=== PATIENT | male | born 1940 | race Caucasian/White ===

== ENCOUNTER 2021-05-12 14:34 | Inpatient (IN) | payer MEDICARE, SELFPAY ==
[2021-05-12] VITALS (14 sets, daily range): BP systolic 114–156; BP diastolic 58–89; PULSE 50–84; RESP 20–22; TEMP 36.9–37.6; O2SAT 85–98; BMI 31.3; BMI 29.8
--- NOTE | 2021-05-12 14:54 | XR_ITS ---
FINAL REPORT CLINICAL HISTORY: cough, covid exposure, generalized weakness. FINDINGS: SINGLE VIEW CHEST. The heart is normal in size. The mediastinum is unremarkable. There is mild scarring. There are bilateral pulmonary opacities consistent with bilateral pneumonia. There is no pneumothorax. IMPRESSION: Findings consistent with bilateral pneumonia. Reviewed, Interpreted and Dictated by Kalin Tovar III, MD Transcribed by Sanjana Cedeno Authenticated by Kalin Tovar III, MD on 05/12/2021 04:00:34 PM [facility]
[2021-05-12 15:00] LABS: Influenza A, PCR Not Detected (NotDetected); Influenza B, PCR Not Detected (NotDetected)
--- NOTE | 2021-05-12 15:10 | PC.NURSE ---
rad at bedside
[2021-05-12 15:13] LABS: Basophils % 0.5 % (0.1-2.0); Eosinophils % 0.1 % (0.1-12.0); Hematocrit 44.3 % (42.0-52.0); Hemoglobin 14.5 g/dL (14.1-18.0); Lymphocytes # 0.7 K/mm3 (0.7-4.5); Lymphocytes % 11.3 % (10-50); Mean Corpuscular HGB Conc 32.7 g/dL (31.8-35.4); Mean Corpuscular Hemoglobin 31.7 pg (27.0-31.2); Mean Corpuscular Volume 96.8 fl (80-94); Mean Platelet Volume 9.4 fl (7.4-10.4); Monocytes # 0.3 K/mm3 (0.1-1.0); Monocytes % 5.7 % (1.7-9.3); Neutrophils # 4.7 K/mm3 (1.8-7.8); Neutrophils % 82.3 % (37.0-80.0); Platelet Count 128 K/mm3 (142-424); Red Blood Count 4.58 M/mm3 (4.60-6.20); Red Cell Distribution Width 14.3 % (11.5-17.5); White Blood Count 5.7 K/mm3 (4.8-10.8)
--- NOTE | 2021-05-12 15:15 | PC.NURSE ---
lab at bedside
--- NOTE | 2021-05-12 15:17 | PC.NURSE ---
RT at bedside
[2021-05-12 15:21] LABS: Lactic Acid 1.8 mmol/L (0.7-2.1)
[2021-05-12 15:23] LABS: Coronavirus 19, PCR Detected (NotDetected)
--- NOTE | 2021-05-12 15:26 | ECG_ITS ---
APPROVED REPORT Exam: Resting ECG HR:77 bpm ECG Measurements Heart Rate 77 AXES AR 160 P 23 QRSd 76 QRS 5 QT 382 T 2 QTc 432 Conclusion Sinus rhythm with premature supraventricular complexes Possible Inferior infarct, age undetermined Abnormal ECG Electronically signed by : Mathieu Carmichael MD 05/15/2021 13:49:15
[2021-05-12 15:32] LABS: ABG Base Excess -5.4 mmol/L (-2.4-2.3); ABG HCO3 18.9 mmhg (22.0-26.0); ABG PCO2 29.2 mmhg (35.0-45.0); ABG PH 7.43 mmol/L (7.35-7.45); ABG PO2 76.4 mmhg (80-100); ABG TCO2 19.8 mmhg (23-27)
[2021-05-12 15:34] LABS: Allen's Test Acceptable; Source Left Radial
--- NOTE | 2021-05-12 15:35 | PC.NURSE ---
pt placed on 13L vapotherm per RT
[2021-05-12 15:43] LABS: Chloride 91 mmol/L (98-107); Potassium 4.6 mmoL/L (3.5-5.1); Sodium 126 mmol/L (136-145)
[2021-05-12 15:45] LABS: Activated Partial Thrombo Time 33.4 seconds (22.8-30.6); INR 1.01 (0.9-1.1); Prothrombin Time 11.4 seconds (10.1-12.5)
[2021-05-12 15:46] LABS: Alanine Aminotransferase 40 U/L (12-78); Albumin Level 3.3 g/dl (3.5-5.0); Albumin/Globulin Ratio 1.2 (1.1-1.8); Alkaline Phosphatase 82 U/L (38-126); Anion Gap 13.6 mEq/L (5-15); Aspartate Amino Transferase 70 U/L (17-59); Bilirubin,Total 0.5 mg/dl (0.2-1.3); Blood Urea Nitrogen 39 mg/dl (9-20); Calcium 7.7 mg/dl (8.4-10.2); Carbon Dioxide 26 mmol/L (22.0-30.0); Creatinine Clearance Estimated 52 mL/min (50-200); Estimated Glomerular Filt Rate 42 ml/min (>60); GFR (African American) 51 ML/MIN (>60); Globulin 2.8 g/dL (1.3-3.2); Lipase 480 U/L (23-300); Total Protein,Serum 6.1 g/dl (6.3-8.2)
[2021-05-12 15:56] LABS: NT Pro Brain Natriuretic Pep. 449 pg/mL (0-450)
[2021-05-12 15:59] LABS: Troponin I 0.03 ng/ml (0.00-0.034)
--- NOTE | 2021-05-12 16:02 | HMH.EDGENADL ---
ED Disposition Clinical Impression: Hyperglycemia, Pneumonia due to COVID-19 virus Respiratory failure Qualifiers: Chronicity: acute Respiratory failure complication: hypoxia and hypercapnia Qualified Code(s): J96.01 - Acute respiratory failure with hypoxia; J96.02 - Acute respiratory failure with hypercapnia Pancreatitis Qualifiers: Chronicity: acute Pancreatitis type: unspecified pancreatitis type Acute pancreatitis complication: unspecified Qualified Code(s): K85.90 - Acute pancreatitis without necrosis or infection, unspecified Disposition: Admitted As Inpatient Condition on Discharge: Fair Referrals: Tom Akhtar PA [Primary Care Provider] - - Critical Care Critical Care Time: No Attestation: On 05/12/21, the high probability of a clinically significant, sudden or life threatening deterioration of the following system(s) required my full and direct attention, intervention and personal management. The time I documented below is in addition to time spent performing reported procedures but includes the following listed in this critical care notation. Medical Decision Making - Medical Records Medical records reviewed: Yes: I reviewed the patient's medical records. - Maxim Inquiry Pt receiving controlled substance: No Vital Signs: 05/12/21 15:00 05/12/21 15:10 05/12/21 15:18 Temperature 99 F Temperature Source Oral Pulse Rate 84 Pulse Rate [Left Radial] 79 Respiratory Rate 22 Blood Pressure 128/73 Blood Pressure [Right Arm] 153/89 H Blood Pressure Mean [Right Arm] 110 Blood Pressure Source [Right Arm] Automatic Cuff Blood Pressure Position [Right Arm] Sitting 02 Sat by Pulse Oximetry 91 L 85 L 92 L Oxygen Delivery Method Nasal Cannula Room Air Nasal Cannula Oxygen Flow Rate (LPM) 6 4 05/12/21 15:35 05/12/21 15:45 Temperature Temperature Source Pulse Rate 83 Pulse Rate [Left Radial] Respiratory Rate Blood Pressure 156/84 H Blood Pressure [Right Arm] Blood Pressure Mean [Right Arm] Blood Pressure Source [Right Arm] Blood Pressure Position [Right Arm] 02 Sat by Pulse Oximetry 93 L 97 Oxygen Delivery Method Vapotherm Vapotherm Oxygen Flow Rate (LPM) 30 - Lab Data Lab Results 05/12/21 14:54: Specimen Source Left radial, O2 % 5lpm, ABG pH 7.43, ABG pCO2 29.2 L, ABG pO2 76.4 L, ABG HCO3 18.9 L, ABG Total CO2 19.8 L, ABG Base Excess -5.4 L, [place]yon Test Acceptable 05/12/21 14:54: SARS-CoV-2 (PCR) Detected A, Influenza A Untype (PCR) Not detected, Influenza Type B (PCR) Not detected 05/12/21 15:00: WBC 5.7, RBC 4.58 L, Hgb 14.5, Hct 44.3, MCV 96.8 H, MCH 31.7 H, MCHC 32.7, RDW 14.3, Plt Count 128 L, MPV 9.4, Neut % (Auto) 82.3 H, Lymph % (Auto) 11.3, [place] % (Auto) 5.7, Eos % (Auto) 0.1, Baso % (Auto) 0.5, Neut # (Auto) 4.7, Lymph # (Auto) 0.7, [place] # (Auto) 0.3, Eos # (Auto) 0.0, Baso # (Auto) 0.0 05/12/21 15:00: Lactate 1.8 05/12/21 15:20: PT 11.4, INR 1.01, APTT 33.4 H 05/12/21 15:20: Sodium 126 L, Potassium 4.6, Chloride 91 L, Carbon Dioxide 26, Anion Gap 13.6, BUN 39 H, Creatinine 1.60 H, Estimated Creat Clear 52, Estimated GFR 42 L, Est GFR ( Amer) 51 L, Glucose 619 H*, Calcium 7.7 L, Total Bilirubin 0.5, AST 70 H, ALT 40, Alkaline Phosphatase 82, Troponin I 0.03, NT-Pro-B Natriuret Pep 449, Total Protein 6.1 L, Albumin 3.3 L, Globulin 2.8, Albumin/Globulin Ratio 1.2, Lipase 480 H, TSH 1.01 Result diagrams: 05/12/21 15:00 05/12/21 15:20 Orders (Tests/Meds): ED MEDICATIONS Discontinued Medications Generic Name Dose Route Start Last Admin Trade Name Freq PRN Reason Stop Dose Admin Dexamethasone Sodium Phosphate 10 mg 05/12/21 15:43 05/12/21 15:59 Dexamethasone 4mg/Ml 5ml Mdv IV 05/12/21 15:44 10 mg ONCE ONE Administration Sodium Chloride 1,000 mls @ 999 mls/hr 05/12/21 15:00 05/12/21 15:10 Sod Chlor 0.9% 1000ml Bag IV 05/12/21 16:00 999 mls/hr .Q1H1M ZANDRA Administration ORDERS Category Date Time Status Temo
[2021-05-12 16:03] LABS: Glucose 619 mg/dl (74-100)
--- NOTE | 2021-05-12 16:04 | PC.NURSE ---
critical labs called to [facility].
[2021-05-12 16:17] LABS: Thyroid Stimulating Hormone 1.01 uIU/mL (0.465-4.68)
--- NOTE | 2021-05-12 16:33 | PC.NURSE ---
Notified house of admission
--- NOTE | 2021-05-12 17:11 | PC.NURSE ---
called report to kay hallman
--- NOTE | 2021-05-12 17:13 | PC.NURSE ---
Received report from Max in ED. Questioned pt receiving any med(s) for glucose of 619. Max asked ED MD and he stated he didn't and wanted glucose managed on floor(per max,RN)
[2021-05-12 17:33] LABS: Alanine Aminotransferase 40 U/L (12-78); Albumin Level 3.3 g/dl (3.5-5.0); Albumin/Globulin Ratio 1.3 (1.1-1.8); Alkaline Phosphatase 82 U/L (38-126); Anion Gap 12.5 mEq/L (5-15); Aspartate Amino Transferase 68 U/L (17-59); Bilirubin,Total 0.6 mg/dl (0.2-1.3); Blood Urea Nitrogen 38 mg/dl (9-20); Calcium 7.8 mg/dl (8.4-10.2); Carbon Dioxide 27 mmol/L (22.0-30.0); Chloride 90 mmol/L (98-107); Creatinine Clearance Estimated 52 mL/min (50-200); Estimated Glomerular Filt Rate 42 ml/min (>60); GFR (African American) 51 ML/MIN (>60); Globulin 2.6 g/dL (1.3-3.2); Potassium 4.5 mmoL/L (3.5-5.1); Sodium 125 mmol/L (136-145); Total Protein,Serum 5.9 g/dl (6.3-8.2)
[2021-05-12 17:44] LABS: Glucose 622 mg/dl (74-100)
--- NOTE | 2021-05-12 17:48 | PC.NURSE ---
Glucose 622 repeated and verified with lab, notified
[2021-05-12 17:53] LABS: Acetone, Serum (Rapid) Small (None Detect)
[2021-05-12 18:49] LABS: Glucose,Random 459 mg/dL (74-100)
--- NOTE | 2021-05-12 18:52 | PC.NURSE ---
Pt to floor at 1800. Checked glucose and read Hi. Stat blood glucose ordered and is 459. Have paged Dr. Lara for further orders at this time. Pt sitting up eating supper at this time. CB in reach.
--- NOTE | 2021-05-12 19:39 | PC.NURSE ---
Addendum entered by Diego Perez RN 05/12/21 20:15: (home meds). Dr. Lara also made aware of small amt of acetone pt has. Addendum entered by Diego Perez RN 05/12/21 20:11: Pt poor historian and unaware of med and dosages. Did make Dr. Lara aware of this. Original Note: Received order for 20 units humalog x [address] Lara
--- NOTE | 2021-05-12 20:00 | PC.NURSE ---
Report from pervious nurse received. Patient has orders for NS bolus and LR on Jul. Per report, patient is not to receive this and has NS at 100mls/hr infusing currently.
[2021-05-13] VITALS (13 sets, daily range): BP systolic 124–156; BP diastolic 63–79; PULSE 60–79; RESP 18–26; TEMP 36.3–36.9; O2SAT 90–96; BMI 29.7
--- NOTE | 2021-05-13 05:20 | PC.NURSE ---
Patient rested well during shift. Alert and oriented x4. No c/o pain. VSS. On vapotherm at 30L oxygen, tolerating well. Sinus rhythm on monitor. Also has continuous pulse oximetry in place. Lung sounds diminished through out. Respirations non-labored. Patient uses urinal to void but is also incontinent. SBA at bedside to void. NS at 100/hr infusing. Patient blood sugar at HS was high, provider updated and orders received. Able to make needs known.
[2021-05-13 07:04] LABS: Basophils % 0.2 % (0.1-2.0); Hemoglobin 13.1 g/dL (14.1-18.0); Lymphocytes # 0.6 K/mm3 (0.7-4.5); Lymphocytes % 16.2 % (10-50); Mean Corpuscular HGB Conc 33.5 g/dL (31.8-35.4); Mean Corpuscular Hemoglobin 32.4 pg (27.0-31.2); Mean Corpuscular Volume 96.7 fl (80-94); Mean Platelet Volume 9.6 fl (7.4-10.4); Monocytes # 0.2 K/mm3 (0.1-1.0); Monocytes % 4.9 % (1.7-9.3); Neutrophils % 78.6 % (37.0-80.0); Platelet Count 121 K/mm3 (142-424); Red Blood Count 4.04 M/mm3 (4.60-6.20); Red Cell Distribution Width 14.3 % (11.5-17.5); White Blood Count 3.8 K/mm3 (4.8-10.8)
--- NOTE | 2021-05-13 07:05 | HMH.HP ---
*Admission Date: 05/12/21 *Chief complaint: Cough *History of present illness: 80-year-old male presented to the emergency department with a cough and known COVID exposure via his . At the time of interview with patient he denies any significant malaise or symptomatology other than his cough. He may have had some chills but denies shortness of breath and fever. Patient was hypoxic in the emergency department requiring application of HFNC to correct his hypoxia. Additional work-up confirmed COVID-19 infection with bilateral infiltrates consistent with viral pneumonia from COVID. Patient was given a fluid bolus in the emergency department as he was felt to be mildly dehydrated. He was admitted for his acute respiratory failure and viral pneumonia due to COVID-19. Patient has diabetes for which she takes insulin. He has a history of aortic valve replacement with bioprosthetic valve. He has high blood pressure. Patient is a former smoker who quit in 2017 after nearly 50 years of cigarette use. Patient has not received a COVID-19 vaccine [facility] History I have reviewed the patient's past medical history: Yes Medical History: Reports:: Diabetes Mellitus Type 2, Hypertension *Have you ever received a pneumonia vaccine?: Yes *Have you received a flu vaccine this season?: No Other Surgeries: Yes: Other Valve Replacement (Aortic) - *Social History Last grade of school completed: High school graduate Smoking Status: Former smoker Tobacco Type: cigarettes Alcohol Intake: never *Occupational Status:: retired, other *Travel in the last 8 weeks: None Family Hx:: Non-contributory Review of Systems - Constitutional Reports chills, Denies body ache(s), Denies lack of energy, Denies malaise - Eyes Denies blurry vision, Denies change in vision - ENT Denies abnormal hearing, Denies difficulty swallowing - *Cardiovascular Denies chest pain, Denies chest pain at rest - *Respiratory Reports cough, Denies change in phlegm color, Denies chest congestion - *Gastrointestinal Reports loose stools, Denies abdominal pain, Denies belching - *Genitourinary Denies difficulty urinating, Denies difficulty with ejaculations - *Musculoskeletal Reports joint pain (Left hip) - Integumentary/Breasts Denies hair loss, Denies bleeding lesions - *Neurologic Reports confusion, Reports weakness Meds Home Medications Medication Instructions Recorded Confirmed Type Apixaban [Eliquis] 5 mg PO BID 05/12/21 05/12/21 History Cholecalciferol (Vitamin D3) 50,000 unit PO DIRECTED 05/12/21 05/12/21 History [Vitamin D3 50,000 unit Cap] Insulin Regular, Human [Novolin R 100 unit SQ NEEDED PRN 05/12/21 05/12/21 History Flexpen] Losartan/Hydrochlorothiazide 1 each PO DAILY 05/12/21 05/12/21 History [Losartan-Hctz 100-25 mg Tab] Simvastatin 20 mg PO DAILY 05/12/21 05/12/21 History carvediloL [Carvedilol 6.25mg Tab] 6.25 mg PO BID 05/12/21 05/12/21 History hydroCHLOROthiazide [HCTZ 25mg 25 mg PO DAILY 05/12/21 05/12/21 History tab] Allergies Allergy/AdvReac Type Severity Reaction Status Date / Time No Known Allergies Allergy Verified 05/12/21 15:18 Exam Vital signs and Labs for Last 24 Hours: Temp Pulse Resp BP Pulse Ox 97.7 F 65 20 131/71 94 L 05/13/21 03:28 05/13/21 06:00 05/13/21 03:28 05/13/21 03:28 05/13/21 06:00 Laboratory Results - last 24 hr 05/12/21 14:54: Specimen Source Left radial, O2 % 5lpm, ABG pH 7.43, ABG pCO2 29.2 L, ABG pO2 76.4 L, ABG HCO3 18.9 L, ABG Total CO2 19.8 L, ABG Base Excess -5.4 L, Kenyon Test Acceptable 05/12/21 14:54: SARS-CoV-2 (PCR) Detected A, Influenza A Untype (PCR) Not detected, Influenza Type B (PCR) Not detected 05/12/21 15:00: WBC 5.7, RBC 4.58 L, Hgb 14.5, Hct 44.3, MCV 96.8 H, MCH 31.7 H, MCHC 32.7, RDW 14.3, Plt Count 128 L, MPV 9.4, Neut % (Auto) 82.3 H, Lymph % (Auto) 11.3, [place] % (Auto) 5.7, Eos % (Auto) 0.1, Baso % (Auto) 0.5, Neut # (Auto) 4.7, Lymph # (Au
[2021-05-13 07:18] LABS: Alanine Aminotransferase 34 U/L (12-78); Albumin Level 2.9 g/dl (3.5-5.0); Albumin/Globulin Ratio 1.1 (1.1-1.8); Alkaline Phosphatase 70 U/L (38-126); Anion Gap 13.1 mEq/L (5-15); Aspartate Amino Transferase 54 U/L (17-59); Bilirubin,Total 0.3 mg/dl (0.2-1.3); Blood Urea Nitrogen 37 mg/dl (9-20); Calcium 7.6 mg/dl (8.4-10.2); Carbon Dioxide 25 mmol/L (22.0-30.0); Chloride 98 mmol/L (98-107); Creatinine Clearance Estimated 60 mL/min (50-200); Estimated Glomerular Filt Rate 53 ml/min (>60); GFR (African American) 65 ML/MIN (>60); Globulin 2.7 g/dL (1.3-3.2); Glucose 318 mg/dl (74-100); Potassium 4.1 mmoL/L (3.5-5.1); Sodium 132 mmol/L (136-145); Total Protein,Serum 5.6 g/dl (6.3-8.2)
[2021-05-13 07:20] LABS: C-Reactive Protein 54.7 mg/L (0-4)
--- NOTE | 2021-05-13 07:39 | HMH.PHAVTE ---
[facility] [place] Pharmacy VTE Monitoring - Patient Demographics Admission date: 05/13/21 Report Date: 05/13/21 Time: 07:39 Allergies/Adverse Reactions: Patient Allergies No Known Allergies Allergy (Verified 05/12/21 15:18) Height: 1.75 m Weight: 91.081 kg Patient Problems: Current Active Problems Hyperglycemia (Acute) Respiratory failure (Acute) Pneumonia due to COVID-19 virus (Acute) Pancreatitis (Acute) Acute respiratory failure with hypoxia (Acute) Long-term insulin use (Acute) Diabetes mellitus with hyperglycemia (Acute) Essential hypertension (Acute) Status post aortic valve replacement (Acute) Former cigarette smoker (Acute) Viral pneumonia (Acute) COVID-19 virus infection (Acute) - VTE Risk Labs: VTE Related Lab Results Hgb 13.1 g/dL (14.1-18.0) L 05/13/21 06:18 Hct 39.0 % (42.0-52.0) L 05/13/21 06:18 Plt Count 121 K/mm3 (142-424) L 05/13/21 06:18 PT 11.4 seconds (10.1-12.5) 05/12/21 15:20 INR 1.01 (0.9-1.1) 05/12/21 15:20 APTT 33.4 seconds (22.8-30.6) H 05/12/21 15:20 BUN 37 mg/dl (9-20) H 05/13/21 06:18 Creatinine 1.30 mg/dl (0.66-1.25) H 05/13/21 06:18 Estimated Creat Clear 60 mL/min (50-200) 05/13/21 06:18 Clinical Trial Participant: No - Prophylaxis VTE Prophylaxis Ordered?: Yes Types of VTE Prophylaxis: TEDS Knee High, Pharmacological Pharmacologic Type: Other (eliquis)
--- NOTE | 2021-05-13 09:07 | HMH.PULMCON ---
*Admission Date: 05/13/21 *Reason for consult:: Acute hypoxic respiratory failure, COVID-19 pneumonia *History of present illness: Mr. Pride is a 80-year-old male prior smoker greater than [id number] smoking history, not yet vaccinated presented to the hospital with worsening respiratory status and found to be COVID-19 positive and pulmonary was called for further management. [facility] History Medical History: Reports:: Diabetes Mellitus Type 2, Hypertension *Have you ever received a pneumonia vaccine?: Yes *Have you received a flu vaccine this season?: No Other Surgeries: Yes: Other Valve Replacement (Aortic) - *Social History Last grade of school completed: High school graduate Smoking Status: Former smoker Tobacco Type: cigarettes Alcohol Intake: never *Occupational Status:: retired, other *Travel in the last 8 weeks: None Family Hx:: Non-contributory ROS - Cons Reports body ache(s), Reports chills - ENT Denies bleeding gums - Card Reports shortness of breath, Reports shortness of breath with activity - Resp Respiratory: Reports chest congestion, Reports cough, Reports dyspnea, Reports dyspnea on exertion, Denies excessive phlegm production - GI Gastrointestingal: Denies: abdominal pain - Psych Denies thoughts of hurting/killing others, Denies thoughts of hurting/killing yourself Meds Home Medications Medication Instructions Recorded Confirmed Type Apixaban [Eliquis] 5 mg PO BID 05/12/21 05/12/21 History Cholecalciferol (Vitamin D3) 50,000 unit PO WEEKLY 05/12/21 05/13/21 History [Vitamin D3 50,000 unit Cap] Insulin Regular, Human [Novolin R 20 unit SQ BIDWMEAL PRN 05/12/21 05/13/21 History Flexpen] Simvastatin 20 mg PO DAILY 05/12/21 05/12/21 History carvediloL [Carvedilol 6.25mg Tab] 6.25 mg PO BID 05/12/21 05/12/21 History hydroCHLOROthiazide [HCTZ 25mg 12.5 mg PO DAILY 05/12/21 05/13/21 History tab] Fluticasone Propionate 1 spray NOSTRIL-B DAILY 05/13/21 05/13/21 History Insulin NPH Human Isophane 0 unit SQ DIRECTED 05/13/21 05/13/21 History [Novolin N] Losartan Potassium [Cozaar 25mg 25 mg PO DAILY 05/13/21 05/13/21 History Tablets] Allergies Allergy/AdvReac Type Severity Reaction Status Date / Time No Known Allergies Allergy Verified 05/12/21 15:18 Exam - Constitutional Constitutional:: Present: no acute distress, comfortable - HENMT Exam HENMT: Present: normocephalic, atraumatic - Eye Exam Eyes:: Present: normal appearance both eyes and related structures - Neck Exam Neck:: Present: normal visual inspection - Respiratory Exam Respiratory:: Present: able to speak in complete sentences, respiratory distress, rales, wheezing - Cardiovascular Exam Cardiac:: Present: S1, S2 - GI Exam GI:: Present: soft - Skin Exam Skin: Present: warm, no rash - Neurological Exam Neurological: Present: alert, awake, normal cognition - Extremities Exam Extremities: Present: no cyanosis, no clubbing, edema Comments: Rt LE Edema Internal Medicine - CN: Reslt - Labs CBC & Chem 7: 05/13/21 06:18 05/13/21 06:18 Labs: Short CBC 05/12/21 05/13/21 Range/Units 15:00 06:18 WBC 5.7 3.8 L D (4.8-10.8) K/mm3 Hgb 14.5 13.1 L (14.1-18.0) g/dL Hct 44.3 39.0 L (42.0-52.0) % Plt Count 128 L 121 L (142-424) K/mm3 BMP 05/12/21 05/12/21 05/13/21 15:20 15:20 06:18 Sodium 126 L 125 L 132 L Potassium 4.6 4.5 4.1 Chloride 91 L 90 L 98 Carbon Dioxide 26 27 25 BUN 39 H 38 H 37 H Creatinine 1.60 H 1.60 H 1.30 H Glucose 619 H* 622 H* 318 H D Calcium 7.7 L 7.8 L 7.6 L Cardiac Enzymes 05/12/21 Range/Units 15:20 Troponin I 0.03 (0.00-0.034) ng/ml Liver Function 05/12/21 05/12/21 05/13/21 Range/Units 15:20 15:20 06:18 Total Bilirubin 0.5 0.6 0.3 (0.2-1.3) mg/dl AST 70 H 68 H 54 (17-59) U/L ALT 40 40 34 (12-78) U/L Alkaline Phosphatase 82 82 70 (38-126) U/L Albumin 3.3 L
--- NOTE | 2021-05-13 10:13 | HMH.PHAINT ---
HOME MEDICATION LIST VERIFIED USING LIST FROM [facility]
[2021-05-13 10:16] LABS: D-Dimer 0.72 ug/mL (0.0-0.5)
--- NOTE | 2021-05-13 11:22 | CA_ITS ---
FINAL REPORT CLINICAL HISTORY: .COVID pneumonia, hypoxia on vapotherm, DM, HTN, former smoker, AV replacement. History of DVT 1 year ago. FINDINGS: Color Doppler, duplex Doppler and compression sonography of the bilateral lower extremities was performed. There is deep venous thrombosis identified within the left femoral and popliteal veins. The remaining deep veins of the bilateral lower extremities are patent and compressible. IMPRESSION: Deep venous thrombosis in the left femoral and left popliteal veins. Reviewed, Interpreted and Dictated by Kalin Tovar III, MD Transcribed by Arden Shankar Authenticated by Kalin Tovar III, MD on 05/13/2021 02:34:02 PM [facility]
--- NOTE | 2021-05-13 11:37 | PC.NURSE ---
spoke with dr. charles about patient. he stated at this time patient did not need to be stepdown. patient could remain in a medsurg bed. stated he would reassess the situation at a later time
[2021-05-13 17:43] LABS: POC Glucose,Bedside 368 (70-110)
[2021-05-13 17:43] LABS: POC Glucose,Bedside 346 (70-110)
[2021-05-13 21:53] LABS: POC Glucose,Bedside 342 (70-110)
[2021-05-14] VITALS (12 sets, daily range): BP systolic 115–154; BP diastolic 58–90; PULSE 60–80; RESP 16–30; TEMP 36.5–36.9; O2SAT 89–95; BMI 29.9
[2021-05-14 06:29] LABS: Basophils % 0.2 % (0.1-2.0); Hematocrit 41.2 % (42.0-52.0); Hemoglobin 13.7 g/dL (14.1-18.0); Lymphocytes # 1.1 K/mm3 (0.7-4.5); Lymphocytes % 13.6 % (10-50); Mean Corpuscular HGB Conc 33.2 g/dL (31.8-35.4); Mean Corpuscular Hemoglobin 31.3 pg (27.0-31.2); Mean Corpuscular Volume 94.4 fl (80-94); Mean Platelet Volume 9.7 fl (7.4-10.4); Monocytes # 0.4 K/mm3 (0.1-1.0); Monocytes % 4.5 % (1.7-9.3); Neutrophils # 6.5 K/mm3 (1.8-7.8); Neutrophils % 81.7 % (37.0-80.0); Platelet Count 136 K/mm3 (142-424); Red Blood Count 4.37 M/mm3 (4.60-6.20); Red Cell Distribution Width 14.2 % (11.5-17.5); White Blood Count 7.9 K/mm3 (4.8-10.8)
[2021-05-14 06:34] LABS: Alanine Aminotransferase 32 U/L (12-78); Albumin/Globulin Ratio 1.2 (1.1-1.8); Alkaline Phosphatase 79 U/L (38-126); Anion Gap 10.8 mEq/L (5-15); Aspartate Amino Transferase 60 U/L (17-59); Bilirubin,Total 0.4 mg/dl (0.2-1.3); Blood Urea Nitrogen 33 mg/dl (9-20); Calcium 7.8 mg/dl (8.4-10.2); Carbon Dioxide 22 mmol/L (22.0-30.0); Chloride 100 mmol/L (98-107); Creatinine Clearance Estimated 66 mL/min (50-200); Estimated Glomerular Filt Rate 59 ml/min (>60); GFR (African American) 71 ML/MIN (>60); Globulin 2.6 g/dL (1.3-3.2); Glucose 243 mg/dl (74-100); Potassium 3.8 mmoL/L (3.5-5.1); Sodium 129 mmol/L (136-145); Total Protein,Serum 5.6 g/dl (6.3-8.2)
--- NOTE | 2021-05-14 07:08 | HMH.ACPN2 ---
Internal Medicine - PN: Subj *Date: 05/14/21 *Time: 07:08 Interval history: Patient reports mild shortness of breath this morning. He has poor memory of yesterday so cannot compare how he feels today with the day prior. Cough is minimal. Nursing staff reports some trouble with maintaining goal O2 sats overnight. At the beginning of the shift patient did remove his oxygen. O2 sats have been in the low 80s. Currently O2 sat is 89%. Patient's FiO2 has been increased overnight to 80%. Venous Doppler of the lower extremities yesterday confirmed left lower extremity DVT. Patient reports history of a DVT approximately 1 year ago in the same leg. Exam Vital signs and Labs for Last 24 Hours: Temp Pulse Resp BP Pulse Ox 97.7 F 64 30 H 130/72 89 L 05/14/21 04:00 05/14/21 06:11 05/14/21 04:00 05/14/21 04:00 05/14/21 06:11 Laboratory Results - last 24 hr 05/13/21 06:14: POC Glucose 346 H* 05/13/21 06:18: WBC 3.8 L D, RBC 4.04 L, Hgb 13.1 L, Hct 39.0 L, MCV 96.7 H, MCH 32.4 H, MCHC 33.5, RDW 14.3, Plt Count 121 L, MPV 9.6, Neut % (Auto) 78.6, Lymph % (Auto) 16.2, [place] % (Auto) 4.9, Eos % (Auto) 0.0 L, Baso % (Auto) 0.2, Neut # (Auto) 3.0, Lymph # (Auto) 0.6 L, [place] # (Auto) 0.2, Eos # (Auto) 0.0, Baso # (Auto) 0.0 05/13/21 06:18: C-Reactive Protein 54.7 H 05/13/21 06:18: Sodium 132 L, Potassium 4.1, Chloride 98, Carbon Dioxide 25, Anion Gap 13.1, BUN 37 H, Creatinine 1.30 H, Estimated Creat Clear 60, Estimated GFR 53 L, Est GFR ( Amer) 65 D, Glucose 318 H D, Calcium 7.6 L, Total Bilirubin 0.3, AST 54, ALT 34, Alkaline Phosphatase 70, Total Protein 5.6 L, Albumin 2.9 L D, Globulin 2.7, Albumin/Globulin Ratio 1.1 05/13/21 09:26: D-Dimer 0.72 H 05/13/21 10:39: POC Glucose 368 H* 05/13/21 21:45: POC Glucose 342 H* 05/14/21 06:08: WBC 7.9 D, RBC 4.37 L, Hgb 13.7 L, Hct 41.2 L, MCV 94.4 H, MCH 31.3 H, MCHC 33.2, RDW 14.2, Plt Count 136 L, MPV 9.7, Neut % (Auto) 81.7 H, Lymph % (Auto) 13.6, [place] % (Auto) 4.5, Eos % (Auto) 0.0 L, Baso % (Auto) 0.2, Neut # (Auto) 6.5, Lymph # (Auto) 1.1, [place] # (Auto) 0.4, Eos # (Auto) 0.0, Baso # (Auto) 0.0 05/14/21 06:08: Sodium 129 L, Potassium 3.8, Chloride 100, Carbon Dioxide 22, Anion Gap 10.8, BUN 33 H, Creatinine 1.20, Estimated Creat Clear 66, Estimated GFR 59, Est GFR ( Amer) 71, Glucose 243 H D, Calcium 7.8 L, Total Bilirubin 0.4, AST 60 H, ALT 32, Alkaline Phosphatase 79, Total Protein 5.6 L, Albumin 3.0 L, Globulin 2.6, Albumin/Globulin Ratio 1.2 I & O for Last 24 hours: Intake & Output 05/11/21 05/12/21 05/13/21 05/14/21 11:59 11:59 11:59 11:59 Intake Total 1751 / 1751 1840 / 1840 Output Total 1100 / 1100 2100 / 2100 Balance 651 / 651 -260 / -260 Weight 200 lb 12.8 oz 202 lb 3.2 oz - Constitutional no acute distress - *Routine Respiratory Exam Present: rales (Bilateral bases) - *Routine Cardiovascular Exam Present: RRR - *Routine Abdominal Exam Present: soft. Absent: tenderness - *Routine Extremities Exam Present: edema Assessment and Plan (1) Viral pneumonia Status: Acute Category: Medical Code(s): J12.9 - Viral pneumonia, unspecified (2) Acute respiratory failure with hypoxia Status: Acute Category: Medical Code(s): J96.01 - Acute respiratory failure with hypoxia (3) Long-term insulin use Status: Acute Category: Medical Code(s): Z79.4 - snf (current) use of insulin (4) Diabetes mellitus with hyperglycemia Status: Acute Category: Medical Code(s): E11.65 - Type 2 diabetes mellitus with hyperglycemia (5) Essential hypertension Status: Acute Category: Medical Code(s): I10 - Essential (primary) hypertension (6) Status post aortic valve replacement Status: Acute Category: Surgical Code(s): Z95.2 - Presence of prosthetic heart valve (7) Former cigarette smoker Status: Acute Category: Social Hx Code(s): Z87.891 - Personal history of nicotine dependence (8) Pneumonia due to COVID-19 v
[2021-05-14 07:14] LABS: POC Glucose,Bedside 260 (70-110)
--- NOTE | 2021-05-14 08:03 | PC.NURSE ---
patient rested poor during night. On vapotherm. Patient frequently desats with movement and activity. Patient restless and frequently pulls off oxygen. Education given. Patient did prone for 30 minute intervals throughout night. Bed alarm in place for safety. Sinus rhythm on monitor.
--- NOTE | 2021-05-14 09:23 | HMH.PULMPN ---
Internal Medicine - PN: Subj *Date: 05/14/21 *Time: 12:55 Interval history: No acute respiratory events overnight. Patient is not compliant with proning protocol. Exam - Constitutional Constitutional:: Present: no acute distress, comfortable - HENMT Exam HENMT: Present: normocephalic, atraumatic - Eye Exam Eyes:: Present: normal appearance both eyes and related structures - Neck Exam Neck:: Present: normal visual inspection - Respiratory Exam Respiratory:: Present: able to speak in complete sentences, respiratory distress, rales. Absent: wheezing - Cardiovascular Exam Cardiac:: Present: S1, S2 - GI Exam GI:: Present: soft - Skin Exam Skin: Present: warm, no rash - Neurological Exam Neurological: Present: alert, awake, normal cognition - Extremities Exam Extremities: Present: no cyanosis, no clubbing, no edema Assessment and Plan (1) Viral pneumonia Status: Acute Category: Medical Code(s): J12.9 - Viral pneumonia, unspecified (2) Acute respiratory failure with hypoxia Status: Acute Category: Medical Code(s): J96.01 - Acute respiratory failure with hypoxia (3) Long-term insulin use Status: Acute Category: Medical Code(s): Z79.4 - senior living (current) use of insulin (4) Diabetes mellitus with hyperglycemia Status: Acute Category: Medical Code(s): E11.65 - Type 2 diabetes mellitus with hyperglycemia (5) Essential hypertension Status: Acute Category: Medical Code(s): I10 - Essential (primary) hypertension (6) Status post aortic valve replacement Status: Acute Category: Surgical Code(s): Z95.2 - Presence of prosthetic heart valve (7) Former cigarette smoker Status: Acute Category: Social Hx Code(s): Z87.891 - Personal history of nicotine dependence (8) Pneumonia due to COVID-19 virus Status: Acute Category: Medical Code(s): U07.1 - COVID-19; J12.82 - Pneumonia due to coronavirus disease 2019 (9) COVID-19 virus infection Status: Acute Category: Medical Code(s): U07.1 - COVID-19 (10) Left leg DVT Status: Acute Category: Medical Code(s): I82.402 - Acute embolism and thrombosis of unspecified deep veins of left lower extremity (11) Acute kidney injury Status: Resolved Category: Medical Code(s): N17.9 - Acute kidney failure, unspecified - Assessment and plan all Dx Assessment and Plan for all problems:: #Acute hypoxic respiratory failure: #COVID-19 pneumonia: Leukopenia with lymphopenia. NAT, improved after hydration. Hyperglycemia. CRP elevated at 54.7. On home anticoagulation apixaban 5 twice daily. DImer elevated at 0.74 ABG on admission showed metabolic acidosis with respiratory compensation with a PO2 of 76.4 and a PCO2 of 29.2 with a pH of 7.43 COVID-19 PCR positive. Flu panel negative Chest x-ray with bilateral diffuse groundglass opacities along with patchy consolidative lesion in the left lower lobe along with dense infiltrate in the right lower lobe. Sternal wires present. Cardiomegaly. Interval update: The lower extremity venous Doppler positive for DVT in lower left lower extremity despite patient being on apixaban, concerning for treatment failure. Patient admits compliance with his apixaban. Patient also stated that he previously on warfarin for which she was allergic to and then eventually was changed to Xarelto and then changed to apixaban. Recommend obtain records from [facility] regarding his DVT and anticoagulation management. Patient also admits rash and hives with his prior warfarin exposure. Not mention any of his allergies. Obtain previous records. Will change apixaban to Lovenox twice daily until then Plan: -Will recommend to change apixaban to Lovenox BID for DVT -Continue awake proning protocol -Continue ceftriaxone and azithromycin. Follow blood cultures and Nasal MRSA PCR -Continue remdesivir, dexamethasone antibiotic need. -Continue Advair 250 twice daily. #Thank for involving pulmo
[2021-05-14 11:48] LABS: POC Glucose,Bedside 312 (70-110)
[2021-05-14 14:41] LABS: INR 1.12 (0.9-1.1); Prothrombin Time 12.5 seconds (10.1-12.5)
--- NOTE | 2021-05-14 15:28 | PC.NURSE ---
PT IS RESTING IN BED. PT'S ONLY COMPLAINT IS HIS NOSE IS STUFFY. SALINE NASAL SPRAY ORDERED. O2 SATURATION HAS MAINTAINED 88-90% ON VAPOTHERM 30 L 80% FIO2. PT WILL OCCASIONALLY REMOVE O2 AND HE WILL DESAT TO THE 70'S. LUNG SOUNDS DIMINISHED WITH BILATERAL CRACKLES. ABDOMEN SOFT/NON TENDER WITH ACTIVE BOWEL SOUNDS. PT HAS SWELLING/REDNESS/TENDERNESS NOTED TO LLE. EATING AND DRINKING FAIR. WILL CONTINUE TO MONITOR.
[2021-05-14 16:25] LABS: POC Glucose,Bedside 229 (70-110)
[2021-05-14 22:06] LABS: POC Glucose,Bedside 297 (70-110)
[2021-05-15] VITALS (16 sets, daily range): BP systolic 118–165; BP diastolic 68–88; PULSE 69–77; RESP 20–30; TEMP 36.4–36.7; O2SAT 90–96; BMI 29.9
[2021-05-15 06:31] LABS: POC Glucose,Bedside 161 (70-110)
[2021-05-15 06:37] LABS: Basophils % 0.3 % (0.1-2.0); Hematocrit 43.7 % (42.0-52.0); Lymphocytes # 1.2 K/mm3 (0.7-4.5); Lymphocytes % 11.9 % (10-50); Mean Corpuscular HGB Conc 34.4 g/dL (31.8-35.4); Mean Corpuscular Hemoglobin 31.5 pg (27.0-31.2); Mean Corpuscular Volume 91.5 fl (80-94); Mean Platelet Volume 9.8 fl (7.4-10.4); Monocytes # 0.7 K/mm3 (0.1-1.0); Monocytes % 6.6 % (1.7-9.3); Neutrophils # 7.9 K/mm3 (1.8-7.8); Neutrophils % 81.2 % (37.0-80.0); Platelet Count 168 K/mm3 (142-424); Red Blood Count 4.77 M/mm3 (4.60-6.20); Red Cell Distribution Width 14.1 % (11.5-17.5); White Blood Count 9.8 K/mm3 (4.8-10.8)
[2021-05-15 06:50] LABS: INR 1.25 (0.9-1.1); Prothrombin Time 13.9 seconds (10.1-12.5)
[2021-05-15 06:51] LABS: Alanine Aminotransferase 31 U/L (12-78); Albumin Level 3.2 g/dl (3.5-5.0); Albumin/Globulin Ratio 1.1 (1.1-1.8); Alkaline Phosphatase 96 U/L (38-126); Anion Gap 11.5 mEq/L (5-15); Aspartate Amino Transferase 64 U/L (17-59); Bilirubin,Total 0.6 mg/dl (0.2-1.3); Blood Urea Nitrogen 32 mg/dl (9-20); Calcium 8.1 mg/dl (8.4-10.2); Carbon Dioxide 27 mmol/L (22.0-30.0); Chloride 96 mmol/L (98-107); Creatinine Clearance Estimated 66 mL/min (50-200); Estimated Glomerular Filt Rate 59 ml/min (>60); GFR (African American) 71 ML/MIN (>60); Globulin 2.8 g/dL (1.3-3.2); Glucose 170 mg/dl (74-100); Potassium 3.5 mmoL/L (3.5-5.1); Sodium 131 mmol/L (136-145)
[2021-05-15 06:56] LABS: C-Reactive Protein 17.3 mg/L (0-4)
--- NOTE | 2021-05-15 07:16 | XR_ITS ---
FINAL REPORT CLINICAL HISTORY: pneumonia progress, worsening hypoxia COMPARISON: May 12, 2021 FINDINGS: SINGLE VIEW CHEST. The heart is normal in size. There is been median sternotomy. The mediastinum is unremarkable. There are persistent but partially improved pulmonary opacities consistent with partially improved pneumonia. There is no pneumothorax. IMPRESSION: Partially improved pneumonia. Reviewed, Interpreted and Dictated by Kalin Tovar III, MD Transcribed by Sanjana Cedeno Authenticated by Kalin Tovar III, MD on 05/15/2021 09:24:46 AM [facility]
--- NOTE | 2021-05-15 07:18 | HMH.ACPN2 ---
Internal Medicine - PN: Subj *Date: 05/15/21 *Time: 07:18 Interval history: Patient has had no acute events but has had gradually increasing oxygen requirements over the last 24 hours. In discussion with nursing staff this seems to be primarily due to patient's repeated removal of supplemental oxygen he is on. He is now on high flow nasal cannula at 40 L/min with an FiO2 of 100%. Night nurse reports patient repeatedly removes oxygen which would cause desats into the 70s and 80s. He has had a nonrebreather placed over his nasal cannula in an attempt to keep O2 sats up as well as to help removal of the high flow nasal cannula. Patient reports he feels worse. He is more short of breath. His cough is nonproductive. CT angiogram was unable to be performed due to patient's oxygen requirement yesterday. Dr. Jasso discontinued Eliquis in favor of subcutaneous Lovenox and initiation of Coumadin therapy for patient's DVT. Development of DVT on Eliquis would be considered treatment failure. Patient denies chest pain. Nursing staff also reports patient seems confused at times. I did discuss patient's care with his yesterday and she reports she has noted confusion from the patient even prior to his COVID diagnosis Exam Vital signs and Labs for Last 24 Hours: Temp Pulse Resp BP Pulse Ox 97.6 F 73 20 165/88 H 90 L 05/15/21 04:00 05/15/21 06:25 05/15/21 04:00 05/15/21 04:00 05/15/21 06:25 Laboratory Results - last 24 hr 05/14/21 10:53: POC Glucose 312 H* 05/14/21 14:23: PT 12.5, INR 1.12 H 05/14/21 16:16: POC Glucose 229 H 05/14/21 20:54: POC Glucose 297 H 05/15/21 05:21: POC Glucose 161 H 05/15/21 05:45: WBC 9.8, RBC 4.77, Hgb 15.0, Hct 43.7, MCV 91.5, MCH 31.5 H, MCHC 34.4, RDW 14.1, Plt Count 168, MPV 9.8, Neut % (Auto) 81.2 H, Lymph % (Auto) 11.9, [place] % (Auto) 6.6, Eos % (Auto) 0.0 L, Baso % (Auto) 0.3, Neut # (Auto) 7.9 H, Lymph # (Auto) 1.2, [place] # (Auto) 0.7, Eos # (Auto) 0.0, Baso # (Auto) 0.0 05/15/21 05:45: Sodium 131 L, Potassium 3.5, Chloride 96 L, Carbon Dioxide 27, Anion Gap 11.5, BUN 32 H, Creatinine 1.20, Estimated Creat Clear 66, Estimated GFR 59, Est GFR ( Amer) 71, Glucose 170 H D, Calcium 8.1 L, Total Bilirubin 0.6, AST 64 H, ALT 31, Alkaline Phosphatase 96, C-Reactive Protein 17.3 H D, Total Protein 6.0 L, Albumin 3.2 L, Globulin 2.8, Albumin/Globulin Ratio 1.1 05/15/21 05:45: PT 13.9 H, INR 1.25 H I & O for Last 24 hours: Intake & Output 05/12/21 05/13/21 05/14/21 05/15/21 11:59 11:59 11:59 11:59 Intake Total 1751 / 1751 2080 / 2080 480 / 480 Output Total 1100 / 1100 2350 / 2350 2450 / 2450 Balance 651 / 651 -270 / -270 -1969 / -1969 Weight 200 lb 12.8 oz 202 lb 3.2 oz 202 lb 2.622 oz Microbiology Reports for the Last 24 Hours: Microbiology 05/12/21 14:54 Blood Blood Culture - Preliminary NO GROWTH AFTER 48 HOURS 05/12/21 15:00 Blood Blood Culture - Preliminary NO GROWTH AFTER 48 HOURS Narrative: Initially patient had mild increased work of breathing but was also not wearing oxygen when I entered the room. Nasal cannula was reapplied and patient quickly became more comfortable. Oropharynx is moist. Neck is supple. Lungs are clear. Heart has a regular rate and rhythm. Neurologically patient shows no deficit and is oriented to person, place, and time. Assessment and Plan (1) Acute respiratory failure with hypoxia Status: Acute Category: Medical Code(s): J96.01 - Acute respiratory failure with hypoxia (2) Viral pneumonia Status: Acute Category: Medical Code(s): J12.9 - Viral pneumonia, unspecified (3) Long-term insulin use Status: Acute Category: Medical Code(s): Z79.4 - shelter (current) use of insulin (4) Diabetes mellitus with hyperglycemia Status: Acute Category: Medical Code(s): E11.65 - Type 2 diabetes mellitus with hyperglycemia (5) Essential hypertension Stat
--- NOTE | 2021-05-15 09:25 | HMH.PULMPN ---
Internal Medicine - PN: Subj *Date: 05/15/21 *Time: 13:01 Interval history: No acute respite events overnight. Patient admits worsening respiratory symptoms. Increasing oxygen requirements. Exam - Constitutional Constitutional:: Absent: no acute distress, comfortable - HENMT Exam HENMT: Present: normocephalic, atraumatic - Eye Exam Eyes:: Present: normal appearance both eyes and related structures - Neck Exam Neck:: Present: normal visual inspection - Respiratory Exam Respiratory:: Present: respiratory distress, rales. Absent: able to speak in complete sentences, accessory muscle use, wheezing - Cardiovascular Exam Cardiac:: Present: S1, S2 - GI Exam GI:: Present: soft, no tenderness - Skin Exam Skin: Present: warm, no rash - Neurological Exam Neurological: Present: alert, awake - Extremities Exam Extremities: Present: no cyanosis, no clubbing, no edema Assessment and Plan (1) Acute respiratory failure with hypoxia Status: Acute Category: Medical Code(s): J96.01 - Acute respiratory failure with hypoxia (2) Viral pneumonia Status: Acute Category: Medical Code(s): J12.9 - Viral pneumonia, unspecified (3) Long-term insulin use Status: Acute Category: Medical Code(s): Z79.4 - halfway (current) use of insulin (4) Diabetes mellitus with hyperglycemia Status: Acute Category: Medical Code(s): E11.65 - Type 2 diabetes mellitus with hyperglycemia (5) Essential hypertension Status: Acute Category: Medical Code(s): I10 - Essential (primary) hypertension (6) Status post aortic valve replacement Status: Acute Category: Surgical Code(s): Z95.2 - Presence of prosthetic heart valve (7) Former cigarette smoker Status: Acute Category: Social Hx Code(s): Z87.891 - Personal history of nicotine dependence (8) Pneumonia due to COVID-19 virus Status: Acute Category: Medical Code(s): U07.1 - COVID-19; J12.82 - Pneumonia due to coronavirus disease 2019 (9) COVID-19 virus infection Status: Acute Category: Medical Code(s): U07.1 - COVID-19 (10) Left leg DVT Status: Acute Category: Medical Code(s): I82.402 - Acute embolism and thrombosis of unspecified deep veins of left lower extremity (11) Acute kidney injury Status: Resolved Category: Medical Code(s): N17.9 - Acute kidney failure, unspecified - Assessment and plan all Dx Assessment and Plan for all problems:: #Acute hypoxic respiratory failure: #COVID-19 pneumonia: #History of DVT: # Recurrent DVT: 80-year-old male prior smoker, greater than 52-ciuk-apcv smoking history. Not yet vaccinated. COVID-19 PCR positive. Flu panel negative CRP elevated at 54.7. On home anticoagulation apixaban 5 twice daily. DImer elevated at 0.74 ABG on admission showed metabolic acidosis with respiratory compensation with a PO2 of 76.4 and a PCO2 of 29.2 with a pH of 7.43 Chest x-ray on admission with bilateral diffuse groundglass opacities along with patchy consolidative lesion in the left lower lobe along with dense infiltrate in the right lower lobe. Sternal wires present. Cardiomegaly. Lower extremity Doppler positive for DVT. Patient has a history of DVT from June 2020 as per the patient and has been on anticoagulation since then. We will consider this as treatment failure with apixaban. Patient was initiated on warfarin yesterday and has been tolerating the medication well. Continue warfarin with Lovenox bridging. Patient also has been noncompliant with instructions, pulling off his high flow nasal cannula nonrebreather and has experiencing frequent desaturations. I have extensive discussion with the patient regarding the need to be complicated with oxygen therapy along with proning protocol. Plan: -Continue warfarin 5mg daily with Lovenox bridging with INR goal of 2-3 -Continue awake proning protocol -Continue ceftriaxone and azithromycin. Blood cultures no growth 48 hours. Follow-up with nasal MR
--- NOTE | 2021-05-15 10:35 | PC.NURSE ---
pt produced sputum sample and it was sent to lab 1025.
--- NOTE | 2021-05-15 12:49 | PC.NURSE ---
Attempted to call and speak with pt's in re to code status, she didn't answer and mailbox was full. Dr. Lara stated he spoke with and she preferred no intubation, have made A CARL Tee aware that this still needs to be clarified. Pt continues to remove vapotherm/nonrebreather and states he just needs a break from it.(which he then desats into 70's) Have educated on need for 02 requirements. Pt is alert and oriented x 4 with intermittent confusion. Srivastava placed in re to pt being incont of urine. Report given to A CARL Tee. Pt is going to be transported to rm 263. Bed alarm in use.
[2021-05-15 15:35] LABS: Microscopic, Urine URINE MICROSCOPIC (MICROSCOPIC)
[2021-05-15 15:45] LABS: Appearance,Urine CLEAR (Clear); Bilirubin,Urine Negative (Negative); Blood, Urine 1+ (Negative); Color,Urine YELLOW (Yellow); Glucose,Urine (UA) TRACE (Negative); Ketones,Urine Negative (Negative); Leukocyte Esterase,Urine Negative (Negative); Nitrate,Urine Negative (Negative); Protein,Urine 2+ (Negative); Specific Gravity, Urine >= 1.030 (1.005-1.030); Urobilinogen,Urine 0.2 EU/dl (0.2)
[2021-05-15 16:03] LABS: POC Glucose,Bedside 331 (70-110)
[2021-05-15 16:27] LABS: Bacteria,Urine Trace /lpf; RBC,Urine 20-50 #/hpf (0-3)
--- NOTE | 2021-05-15 18:24 | PC.NURSE ---
Patient is pleasant but confused, he needs almost constant redirection to leave his oxygen in place, patient is on vpaotherm at 40L/100% with NRB. When patient leaves o2 in place his oxygen saturations are 92-96% but quickly desats when he removes it. Patient is alert to self only at this time. Bed exit alarm activated, lung sounds diminished t/o, does not appear to be in any distress and denies any pain, vss, will continue to monitor for changes.
[2021-05-15 21:53] LABS: POC Glucose,Bedside 304 (70-110)
[2021-05-15 22:36] LABS: POC Glucose,Bedside 222 (70-110)
[2021-05-16] VITALS (15 sets, daily range): BP systolic 102–142; BP diastolic 58–84; PULSE 59–89; RESP 18–28; TEMP 36.4–37.4; O2SAT 86–98; BMI 27.7
--- NOTE | 2021-05-16 04:23 | PC.NURSE ---
Pt has been confused this shift. Is alert to self only. Has been redirected continuously t/o night to keep Vapotherm and NRB on. He has only slept for an hour. Due to pt's confusion, it has been difficult to prone pt. He will cooperate and position in prone, but soon forgets and turns back to supine position within 15 min. Pt remains on Vapotherm and NRB at this time. O2 sats remain in 90s when he leaves O2 on. Other VSS. F/C draining to bedside. 0 ml total urine output. Safety measures in place. Will continue to monitor.
[2021-05-16 05:01] LABS: POC Glucose,Bedside 135 (70-110)
[2021-05-16 06:36] LABS: INR 2.67 (0.9-1.1); Prothrombin Time 28.1 seconds (10.1-12.5)
[2021-05-16 06:39] LABS: Basophils # 0.1 K/mm3 (0-0.2); Basophils % 0.5 % (0.1-2.0); Eosinophils % 0.1 % (0.1-12.0); Lymphocytes # 1.3 K/mm3 (0.7-4.5); Mean Corpuscular Hemoglobin 31.6 pg (27.0-31.2); Mean Corpuscular Volume 92.8 fl (80-94); Mean Platelet Volume 10.5 fl (7.4-10.4); Monocytes # 0.9 K/mm3 (0.1-1.0); Neutrophils # 9.3 K/mm3 (1.8-7.8); Neutrophils % 80.4 % (37.0-80.0); Red Blood Count 5.81 M/mm3 (4.60-6.20); Red Cell Distribution Width 14.1 % (11.5-17.5); White Blood Count 11.5 K/mm3 (4.8-10.8)
[2021-05-16 06:52] LABS: Hemoglobin 15.4 g/dL (14.1-18.0)
[2021-05-16 06:54] LABS: Alanine Aminotransferase 31 U/L (12-78); Albumin Level 3.3 g/dl (3.5-5.0); Albumin/Globulin Ratio 1.1 (1.1-1.8); Alkaline Phosphatase 109 U/L (38-126); Anion Gap 12.6 mEq/L (5-15); Aspartate Amino Transferase 61 U/L (17-59); Bilirubin,Total 0.7 mg/dl (0.2-1.3); Blood Urea Nitrogen 37 mg/dl (9-20); Calcium 8.2 mg/dl (8.4-10.2); Carbon Dioxide 25 mmol/L (22.0-30.0); Chloride 98 mmol/L (98-107); Creatinine Clearance Estimated 61 mL/min (50-200); Estimated Glomerular Filt Rate 59 ml/min (>60); GFR (African American) 71 ML/MIN (>60); Globulin 2.9 g/dL (1.3-3.2); Glucose 129 mg/dl (74-100); Potassium 3.6 mmoL/L (3.5-5.1); Sodium 132 mmol/L (136-145); Total Protein,Serum 6.2 g/dl (6.3-8.2)
[2021-05-16 06:56] LABS: Hematocrit 44.8 % (42.0-52.0)
[2021-05-16 06:57] LABS: Platelet Count 205 K/mm3 (142-424)
--- NOTE | 2021-05-16 07:01 | HMH.ACPN2 ---
Internal Medicine - PN: Subj *Date: 05/16/21 *Time: 07:01 Interval history: No acute events over the last 24 hours. Patient has required frequent reminders to not remove his oxygen. He remains on combination of high flow nasal cannula and nonrebreather which keeps patient's O2 sats in the 90s. If he removes his nonrebreather sats will drop to the mid 80s. Patient has not shown any signs of respiratory distress. Patient remains confused at times but remains aware he is hospitalized due to COVID-19 infection. He reports mild improvement in dyspnea this morning and a better appetite Exam Vital signs and Labs for Last 24 Hours: Temp Pulse Resp BP Pulse Ox 98 F 62 24 133/80 93 L 05/16/21 06:00 05/16/21 06:00 05/16/21 06:00 05/16/21 06:00 05/16/21 06:00 Laboratory Results - last 24 hr 05/15/21 08:41: Urine Color Yellow, Urine Appearance Clear, Urine pH 6.0, Ur Specific [place] >= 1.030, Urine Protein 2+, Urine Glucose (UA) Trace, Urine Ketones Negative, Urine Blood 1+, Urine Nitrate Negative, Urine Bilirubin Negative, Urine Urobilinogen 0.2, Ur Leukocyte Esterase Negative, Urine RBC 20-50, Urine WBC 3-5, Ur Squamous Epith Cells None, Urine Bacteria Trace 05/15/21 11:22: POC Glucose 222 H 05/15/21 15:52: POC Glucose 331 H* 05/15/21 21:16: POC Glucose 304 H* 05/16/21 04:54: POC Glucose 135 H 05/16/21 05:50: WBC 11.5 H, RBC 5.81, Hgb 15.4, Hct 44.8, MCV 92.8, MCH 31.6 H, MCHC 34.0, RDW 14.1, Plt Count 205, MPV 10.5 H, Neut % (Auto) 80.4 H, Lymph % (Auto) 11.0, [place] % (Auto) 8.0, Eos % (Auto) 0.1, Baso % (Auto) 0.5, Neut # (Auto) 9.3 H, Lymph # (Auto) 1.3, [place] # (Auto) 0.9, Eos # (Auto) 0.0, Baso # (Auto) 0.1 01/14/22 05:50: Sodium 132 L, Potassium 3.6, Chloride 98, Carbon Dioxide 25, Anion Gap 12.6, BUN 37 H, Creatinine 1.20, Estimated Creat Clear 61, Estimated GFR 59, Est GFR ( Amer) 71, Glucose 129 H, Calcium 8.2 L, Total Bilirubin 0.7, AST 61 H, ALT 31, Alkaline Phosphatase 109, Total Protein 6.2 L, Albumin 3.3 L, Globulin 2.9, Albumin/Globulin Ratio 1.1 05/16/21 05:50: PT 28.1 H, INR 2.67 H I & O for Last 24 hours: Intake & Output 05/13/21 05/14/21 05/15/21 05/16/21 11:59 11:59 11:59 11:59 Intake Total 1751 / 1751 2080 / 2080 600 / 600 460 / 460 Output Total 1100 / 1100 2350 / 2350 3300 / 3300 2049 / 2049 Balance 651 / 651 -270 / -270 -2700 / -2700 -1590 / -1590 Weight 200 lb 12.8 oz 202 lb 3.2 oz 202 lb 2.622 oz 187 lb 3.2 oz Microbiology Reports for the Last 24 Hours: Microbiology 05/15/21 10:16 Sputum - Expectorated Sputum Gram Stain - Final Narrative: Patient awakens easily. There is no increased work of breathing. Oropharynx is dry. Lungs are distant but clear anteriorly with faint rales posteriorly. Heart has a regular rate and rhythm. Abdomen is soft and nontender. Assessment and Plan (1) Acute respiratory failure with hypoxia Status: Acute Category: Medical Code(s): J96.01 - Acute respiratory failure with hypoxia (2) Viral pneumonia Status: Acute Category: Medical Code(s): J12.9 - Viral pneumonia, unspecified (3) Long-term insulin use Status: Acute Category: Medical Code(s): Z79.4 - halfway (current) use of insulin (4) Diabetes mellitus with hyperglycemia Status: Acute Category: Medical Code(s): E11.65 - Type 2 diabetes mellitus with hyperglycemia (5) Essential hypertension Status: Acute Category: Medical Code(s): I10 - Essential (primary) hypertension (6) Status post aortic valve replacement Status: Acute Category: Surgical Code(s): Z95.2 - Presence of prosthetic heart valve (7) Former cigarette smoker Status: Acute Category: Social Hx Code(s): Z87.891 - Personal history of nicotine dependence (8) Pneumonia due to COVID-19 virus Status: Acute Category: Medical Code(s): U07.1 - COVID-19; J12.82 - Pneumonia due to coronavirus disease 2019 (9) COVID-19 virus infection Status: Acute Category: Medical Code(
[2021-05-16 07:25] LABS: ABG Base Excess 0.6 mmol/L (-2.4-2.3); ABG HCO3 23.1 mmhg (22.0-26.0); ABG Oxygen Saturation 91 % (90-100); ABG PCO2 27.3 mmhg (35.0-45.0); ABG PH 7.55 mmol/L (7.35-7.45); ABG TCO2 23.9 mmhg (23-27); Allen's Test Acceptable; Oxygen 40L 100% %; Source Right Radial
--- NOTE | 2021-05-16 09:23 | HMH.PULMPN ---
Internal Medicine - PN: Subj *Date: 05/16/21 *Time: 14:44 Interval history: Patient noted to have intermittent desaturations to low 80s overnight. He is to be noncompliant with using his high flow nasal cannula. Not compliant with his proning protocol. Exam - Constitutional Constitutional:: Present: no acute distress, comfortable - HENMT Exam HENMT: Present: normocephalic, atraumatic - Eye Exam Eyes:: Present: normal appearance both eyes and related structures - Neck Exam Neck:: Present: normal visual inspection - Respiratory Exam Respiratory:: Present: respiratory distress, rales. Absent: able to speak in complete sentences - Cardiovascular Exam Cardiac:: Present: S1, S2 - GI Exam GI:: Present: soft - Skin Exam Skin: Present: warm, rash - Neurological Exam Neurological: Present: alert, awake, normal cognition - Extremities Exam Extremities: Present: no cyanosis, no clubbing, edema Assessment and Plan (1) Acute respiratory failure with hypoxia Status: Acute Category: Medical Code(s): J96.01 - Acute respiratory failure with hypoxia (2) Viral pneumonia Status: Acute Category: Medical Code(s): J12.9 - Viral pneumonia, unspecified (3) Long-term insulin use Status: Acute Category: Medical Code(s): 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 insulin (4) Diabetes mellitus with hyperglycemia Status: Acute Category: Medical Code(s): E11.65 - Type 2 diabetes mellitus with hyperglycemia (5) Essential hypertension Status: Acute Category: Medical Code(s): I10 - Essential (primary) hypertension (6) Status post aortic valve replacement Status: Acute Category: Surgical Code(s): Z95.2 - Presence of prosthetic heart valve (7) Former cigarette smoker Status: Acute Category: Social Hx Code(s): Z87.891 - Personal history of nicotine dependence (8) Pneumonia due to COVID-19 virus Status: Acute Category: Medical Code(s): U07.1 - COVID-19; J12.82 - Pneumonia due to coronavirus disease 2019 (9) COVID-19 virus infection Status: Acute Category: Medical Code(s): U07.1 - COVID-19 (10) Left leg DVT Status: Acute Category: Medical Code(s): I82.402 - Acute embolism and thrombosis of unspecified deep veins of left lower extremity (11) Acute kidney injury Status: Resolved Category: Medical Code(s): N17.9 - Acute kidney failure, unspecified - Assessment and plan all Dx Assessment and Plan for all problems:: #Acute hypoxic respiratory failure: #COVID-19 pneumonia: #History of DVT: # Recurrent DVT: 80-year-old male prior smoker, greater than 35-miko-ejrl smoking history. Not yet vaccinated. COVID-19 PCR positive. Flu panel negative CRP elevated at 54.7. On home anticoagulation apixaban 5 twice daily. DImer elevated at 0.74 ABG on admission showed metabolic acidosis with respiratory compensation with a PO2 of 76.4 and a PCO2 of 29.2 with a pH of 7.43 Chest x-ray on admission with bilateral diffuse groundglass opacities along with patchy consolidative lesion in the left lower lobe along with dense infiltrate in the right lower lobe. Sternal wires present. Cardiomegaly. Lower extremity Doppler positive for DVT. Patient has a history of DVT from June 2020 as per the patient and has been on anticoagulation since then. Initiated on Coumadin for treatment failure with Lovenox bridging. Interval update: Patient continued to be noncompliant with his nonrebreather. Noted to have intermittent desaturations. We have extensively discussed with the patient again today. He prone this morning with saturations immediately improved to 93 to 94% from 86%. Patient will be transferred to stepdown with one-on-one sitter to ensure compliance compliance. Respiratory status remains critical and I hope patient will be compliant with high flow nasal cannula. No need for imminent intubation at this point of time. We will closely monitor. protocol. Plan: -Continue awake proning p
--- NOTE | 2021-05-16 10:15 | HMH.ACPN2 ---
Internal Medicine - PN: Subj *Date: 05/16/21 *Time: 10:15 Exam Vital signs and Labs for Last 24 Hours: Temp Pulse Resp BP Pulse Ox 98.0 F 70 22 123/64 86 L 05/16/21 07:59 05/16/21 08:00 05/16/21 07:59 05/16/21 07:59 05/16/21 07:59 Laboratory Results - last 24 hr 05/15/21 08:41: Urine Color Yellow, Urine Appearance Clear, Urine pH 6.0, Ur Specific [place] >= 1.030, Urine Protein 2+, Urine Glucose (UA) Trace, Urine Ketones Negative, Urine Blood 1+, Urine Nitrate Negative, Urine Bilirubin Negative, Urine Urobilinogen 0.2, Ur Leukocyte Esterase Negative, Urine RBC 20-50, Urine WBC 3-5, Ur Squamous Epith Cells None, Urine Bacteria Trace 05/15/21 11:22: POC Glucose 222 H 05/15/21 15:52: POC Glucose 331 H* 05/15/21 21:16: POC Glucose 304 H* 05/16/21 04:54: POC Glucose 135 H 05/16/21 05:50: WBC 11.5 H, RBC 5.81, Hgb 15.4, Hct 44.8, MCV 92.8, MCH 31.6 H, MCHC 34.0, RDW 14.1, Plt Count 205, MPV 10.5 H, Neut % (Auto) 80.4 H, Lymph % (Auto) 11.0, [place] % (Auto) 8.0, Eos % (Auto) 0.1, Baso % (Auto) 0.5, Neut # (Auto) 9.3 H, Lymph # (Auto) 1.3, [place] # (Auto) 0.9, Eos # (Auto) 0.0, Baso # (Auto) 0.1 05/16/21 05:50: Sodium 132 L, Potassium 3.6, Chloride 98, Carbon Dioxide 25, Anion Gap 12.6, BUN 37 H, Creatinine 1.20, Estimated Creat Clear 61, Estimated GFR 59, Est GFR ( Amer) 71, Glucose 129 H, Calcium 8.2 L, Total Bilirubin 0.7, AST 61 H, ALT 31, Alkaline Phosphatase 109, Total Protein 6.2 L, Albumin 3.3 L, Globulin 2.9, Albumin/Globulin Ratio 1.1 05/16/21 05:50: PT 28.1 H, INR 2.67 H 05/16/21 07:07: Specimen Source Right radial, O2 % 40l 100%, ABG pH 7.55 H, ABG pCO2 27.3 L, ABG pO2 56.0 L, ABG HCO3 23.1, ABG Total CO2 23.9, ABG O2 Saturation 91, ABG Base Excess 0.6, [place] Test Acceptable I & O for Last 24 hours: Intake & Output 05/13/21 05/14/21 05/15/21 05/16/21 23:59 23:59 23:59 23:59 Intake Total 3351 / 3351 720 / 720 580 / 580 360 / 360 Output Total 2300 / 2300 2500 / 3200 2900 / 2900 700 / 700 Balance 1051 / 1051 -1780 / -2480 -2320 / -2320 -340 / -340 Weight 91 kg 91.716 kg 91.7 kg 84.912 kg Microbiology Reports for the Last 24 Hours: Microbiology 05/15/21 10:16 Sputum - Expectorated Sputum Gram Stain - Final Assessment and Plan (1) Acute respiratory failure with hypoxia Status: Acute Category: Medical Code(s): J96.01 - Acute respiratory failure with hypoxia (2) Viral pneumonia Status: Acute Category: Medical Code(s): J12.9 - Viral pneumonia, unspecified (3) Long-term insulin use Status: Acute Category: Medical Code(s): Z79.4 - [facility] (current) use of insulin (4) Diabetes mellitus with hyperglycemia Status: Acute Category: Medical Code(s): E11.65 - Type 2 diabetes mellitus with hyperglycemia (5) Essential hypertension Status: Acute Category: Medical Code(s): I10 - Essential (primary) hypertension (6) Status post aortic valve replacement Status: Acute Category: Surgical Code(s): Z95.2 - Presence of prosthetic heart valve (7) Former cigarette smoker Status: Acute Category: Social Hx Code(s): Z87.891 - Personal history of nicotine dependence (8) Pneumonia due to COVID-19 virus Status: Acute Category: Medical Code(s): U07.1 - COVID-19; J12.82 - Pneumonia due to coronavirus disease 2019 (9) COVID-19 virus infection Status: Acute Category: Medical Code(s): U07.1 - COVID-19 (10) Left leg DVT Status: Acute Category: Medical Code(s): I82.402 - Acute embolism and thrombosis of unspecified deep veins of left lower extremity (11) Acute kidney injury Status: Resolved Category: Medical Code(s): N17.9 - Acute kidney failure, unspecified The patient's infection will respond to the chosen ABx?: Yes Is the patient receiving the right drug, dose, and route?: Yes Could a more targeted ABx be ordered?: No (SPUTUM PENDING)
[2021-05-16 10:52] LABS: POC Glucose,Bedside 88 (70-110)
--- NOTE | 2021-05-16 12:12 | PC.NURSE ---
Notified per H CARL Wang of patient's wanting to visit patient. Patient is COVID-19 (+). Spoke with via face to face. Explained in detail visitation exception. Explained in detail to that she must remain at patient's bedside, with mask in place. Explained in detail that visits must be kept to a maximum of 3 consecutive hours. Explained in detail that if patient condition changes or deteriorates, then visitation will be revisited. Stated understanding. Notified Nursing Staff, Case Management and Technician Preventative Medicine. Will follow up as needed. Jon Fletcher RN, CNO
--- NOTE | 2021-05-16 13:13 | PC.NURSE ---
Per Jon Fletcher RN, CNO- pt is allowed to have (2) visitors today for three hours. On other days, pt's only allowed x1 visitor for (3) hours.
[2021-05-16 18:22] LABS: POC Glucose,Bedside 296 (70-110)
[2021-05-17] VITALS (16 sets, daily range): BP systolic 103–136; BP diastolic 44–77; PULSE 68–86; RESP 19–28; TEMP 36.3–36.8; O2SAT 83–100; BMI 27.3; BMI 31.8
--- NOTE | 2021-05-17 04:47 | PC.NURSE ---
pt has remained on vapotherm with non rebreather, has removed both numerous times t/o shift, the number of times he has removed them has decreased as shift progressed, O2 sats have remained 91-93%, pt does desat to upper 70's to lower 80's when O2 is removed but very quickly recovers when O2 is replaced, haddad remains in place, 600 mL out so far this shift, bed alarm remains on for safety
[2021-05-17 06:09] LABS: POC Glucose,Bedside 270 (70-110)
[2021-05-17 06:09] LABS: POC Glucose,Bedside 130 (70-110)
[2021-05-17 06:44] LABS: Basophils # 0.1 K/mm3 (0-0.2); Basophils % 0.5 % (0.1-2.0); Eosinophils % 0.1 % (0.1-12.0); Hematocrit 49.1 % (42.0-52.0); Lymphocytes # 1.2 K/mm3 (0.7-4.5); Lymphocytes % 7.4 % (10-50); Mean Corpuscular HGB Conc 32.6 g/dL (31.8-35.4); Mean Corpuscular Hemoglobin 31.2 pg (27.0-31.2); Mean Corpuscular Volume 95.6 fl (80-94); Mean Platelet Volume 9.4 fl (7.4-10.4); Monocytes # 0.8 K/mm3 (0.1-1.0); Monocytes % 4.8 % (1.7-9.3); Neutrophils # 14.8 K/mm3 (1.8-7.8); Neutrophils % 87.3 % (37.0-80.0); Platelet Count 216 K/mm3 (142-424); Red Blood Count 5.13 M/mm3 (4.60-6.20); Red Cell Distribution Width 14.2 % (11.5-17.5); White Blood Count 16.9 K/mm3 (4.8-10.8)
[2021-05-17 06:48] LABS: MANUAL DIFFERENTIAL MANUAL DIFFERENTIAL (MANUAL DIFF)
[2021-05-17 06:53] LABS: INR 3.22 (0.9-1.1); Prothrombin Time 33.4 seconds (10.1-12.5)
[2021-05-17 07:01] LABS: Lymphocytes % 9 % (10-50); Monocytes % 4 % (2-9); Neutrophils % 87 % (42-76); Platelet Estimate Normal; RBC Morphology Normal; Total Cells Counted 100
--- NOTE | 2021-05-17 07:06 | HMH.ACPN2 ---
Internal Medicine - PN: Subj *Date: 05/17/21 *Time: 07:06 Interval history: No acute changes over the last 24 hours. Patient continues to need frequent reminders to keep supplemental oxygen in place. When removed sats will drop to the 70s. When patient will use high flow nasal cannula only sats will be in the mid 90s. Nonrebreather is being used to increase sats quickly after desaturations. Exam Vital signs and Labs for Last 24 Hours: Temp Pulse Resp BP Pulse Ox 97.4 F L 70 24 103/69 L 97 05/17/21 04:00 05/17/21 06:00 05/17/21 06:00 05/17/21 06:00 05/17/21 06:24 Laboratory Results - last 24 hr 05/16/21 07:07: Specimen Source Right radial, O2 % 40l 100%, ABG pH 7.55 H, ABG pCO2 27.3 L, ABG pO2 56.0 L, ABG HCO3 23.1, ABG Total CO2 23.9, ABG O2 Saturation 91, ABG Base Excess 0.6, [place] Test Acceptable 05/16/21 10:42: POC Glucose 88 05/16/21 18:14: POC Glucose 296 H 05/16/21 21:40: POC Glucose 270 H 05/17/21 06:00: WBC 16.9 H D, RBC 5.13, Hgb 16.0, Hct 49.1, MCV 95.6 H, MCH 31.2, MCHC 32.6, RDW 14.2, Plt Count 216, MPV 9.4, Neut % (Auto) 87.3 H, Lymph % (Auto) 7.4 L, [place] % (Auto) 4.8, Eos % (Auto) 0.1, Baso % (Auto) 0.5, Neut # (Auto) 14.8 H, Lymph # (Auto) 1.2, [place] # (Auto) 0.8, Eos # (Auto) 0.0, Baso # (Auto) 0.1, Total Counted 100, Neutrophils % (Manual) 87 H, Lymphocytes % (Manual) 9 L, Monocytes % (Manual) 4, Platelet Estimate Normal, RBC Morphology Normal 05/17/21 06:00: PT 33.4 H, INR 3.22 H 05/17/21 06:01: POC Glucose 130 H I & O for Last 24 hours: Intake & Output 05/14/21 05/15/21 05/16/21 05/17/21 11:59 11:59 11:59 11:59 Intake Total 2080 / 2080 600 / 600 820 / 820 240 / 240 Output Total 2350 / 2350 3300 / 3300 2050 / 2050 1550 / 1550 Balance -270 / -270 -2700 / -2700 -1230 / -1230 -1310 / -1310 Weight 202 lb 3.2 oz 202 lb 2.622 oz 187 lb 3.2 oz 215 lb 6 oz Microbiology Reports for the Last 24 Hours: Microbiology 05/15/21 10:16 Sputum - Expectorated Sputum Gram Stain - Final 05/15/21 10:16 Sputum - Expectorated Sputum Sputum Culture - Preliminary Gram Negative Rods Narrative: Patient is in no distress this morning. He is oriented to person and place. Breath sounds are distant throughout. Heart has a regular rate and rhythm. Abdomen is soft and nontender. 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 (4) Diabetes mellitus with hyperglycemia Status: Acute Category: Medical Code(s): E11.65 - Type 2 diabetes mellitus with hyperglycemia (5) Essential hypertension Status: Acute Category: Medical Code(s): I10 - Essential (primary) hypertension (6) Status post aortic valve replacement Status: Acute Category: Surgical Code(s): Z95.2 - Presence of prosthetic heart valve (7) Former cigarette smoker Status: Acute Category: Social Hx Code(s): Z87.891 - Personal history of nicotine dependence (8) Pneumonia due to COVID-19 virus Status: Acute Category: Medical Code(s): U07.1 - COVID-19; J12.82 - Pneumonia due to coronavirus disease 2019 (9) COVID-19 virus infection Status: Acute Category: Medical Code(s): U07.1 - COVID-19 (10) Left leg DVT Status: Acute Category: Medical Code(s): I82.402 - Acute embolism and thrombosis of unspecified deep veins of left lower extremity (11) Acute kidney injury Status: Resolved Category: Medical Code(s): N17.9 - Acute kidney failure, unspecified - Assessment and plan all Dx Assessment and Plan for all problems:: 1. Continue Remdesivir, baricitinib, dexamethasone, Rocephin
[2021-05-17 07:50] LABS: Chloride 99 mmol/L (98-107)
[2021-05-17 07:51] LABS: Potassium 3.9 mmoL/L (3.5-5.1); Sodium 134 mmol/L (136-145)
[2021-05-17 07:53] LABS: Alanine Aminotransferase 31 U/L (12-78); Alkaline Phosphatase 104 U/L (38-126); Anion Gap 11.9 mEq/L (5-15); Aspartate Amino Transferase 59 U/L (17-59); Bilirubin,Total 0.7 mg/dl (0.2-1.3); Blood Urea Nitrogen 45 mg/dl (9-20); Carbon Dioxide 27 mmol/L (22.0-30.0); Creatinine Clearance Estimated 60 mL/min (50-200); Estimated Glomerular Filt Rate 49 ml/min (>60); GFR (African American) 59 ML/MIN (>60)
[2021-05-17 07:54] LABS: Albumin Level 3.4 g/dl (3.5-5.0); Albumin/Globulin Ratio 1.2 (1.1-1.8); Calcium 8.1 mg/dl (8.4-10.2); Globulin 2.9 g/dL (1.3-3.2); Glucose 135 mg/dl (74-100); Total Protein,Serum 6.3 g/dl (6.3-8.2)
[2021-05-17 17:52] LABS: POC Glucose,Bedside 327 (70-110)
--- NOTE | 2021-05-17 18:42 | PC.NURSE ---
Pt has been very restless this shift and has required frequent interventions t/o the day. Since 1400, NRB has not been in use and pt o2 sats have neem
--- NOTE | 2021-05-17 18:44 | PC.NURSE ---
Pt has been very restless this shift and has required frequent interventions t/o the day to keep vapotherm on and o2 sensor on. Since 1400, NRB has not been in use and pt o2 sats have been 94 and above. When pt takes o2 off, pt has dropped as low as 62%. Mitts have been applied this shift to prevent pt from pulling off o2 and o2 sensor and pt verbalized understanding of why they were being put on. No other acute changes.
--- NOTE | 2021-05-17 19:00 | PC.NURSE ---
1600 TELE STRIP NOT CAPTURED D/T PT REFUSING TO KEEP ON LEADS
[2021-05-17 22:25] LABS: POC Glucose,Bedside 228 (70-110)
[2021-05-18] VITALS (18 sets, daily range): BP systolic 112–154; BP diastolic 55–90; PULSE 60–83; RESP 20–28; TEMP 36.3–36.8; O2SAT 91–100; BMI 32.1
[2021-05-18 05:31] LABS: POC Glucose,Bedside 195 (70-110)
[2021-05-18 06:35] LABS: Basophils # 0.1 K/mm3 (0-0.2); Basophils % 0.5 % (0.1-2.0); Eosinophils % 0.2 % (0.1-12.0); Hematocrit 47.9 % (42.0-52.0); Hemoglobin 15.9 g/dL (14.1-18.0); Lymphocytes # 1.1 K/mm3 (0.7-4.5); Lymphocytes % 5.5 % (10-50); Mean Corpuscular HGB Conc 33.2 g/dL (31.8-35.4); Mean Corpuscular Hemoglobin 31.4 pg (27.0-31.2); Mean Corpuscular Volume 94.6 fl (80-94); Mean Platelet Volume 9.5 fl (7.4-10.4); Monocytes # 0.8 K/mm3 (0.1-1.0); Monocytes % 3.8 % (1.7-9.3); Neutrophils # 18.6 K/mm3 (1.8-7.8); Neutrophils % 90.1 % (37.0-80.0); Platelet Count 271 K/mm3 (142-424); Red Blood Count 5.06 M/mm3 (4.60-6.20); Red Cell Distribution Width 14.2 % (11.5-17.5)
[2021-05-18 06:41] LABS: White Blood Count 20.6 K/mm3 (4.8-10.8)
[2021-05-18 06:42] LABS: MANUAL DIFFERENTIAL MANUAL DIFFERENTIAL (MANUAL DIFF)
[2021-05-18 06:51] LABS: INR 4.43 (0.9-1.1); Prothrombin Time 44.8 seconds (10.1-12.5)
[2021-05-18 07:05] LABS: Lymphocytes % 8 % (10-50); Neutrophils % 82 % (42-76); Platelet Estimate Normal; RBC Morphology Normal; Total Cells Counted 100
[2021-05-18 07:09] LABS: Alanine Aminotransferase 28 U/L (12-78); Albumin Level 3.3 g/dl (3.5-5.0); Albumin/Globulin Ratio 1.1 (1.1-1.8); Alkaline Phosphatase 112 U/L (38-126); Anion Gap 10.9 mEq/L (5-15); Aspartate Amino Transferase 53 U/L (17-59); Blood Urea Nitrogen 48 mg/dl (9-20); Calcium 8.3 mg/dl (8.4-10.2); Carbon Dioxide 26 mmol/L (22.0-30.0); Chloride 101 mmol/L (98-107); Creatinine Clearance Estimated 61 mL/min (50-200); Estimated Glomerular Filt Rate 49 ml/min (>60); GFR (African American) 59 ML/MIN (>60); Globulin 2.9 g/dL (1.3-3.2); Glucose 114 mg/dl (74-100); Potassium 3.9 mmoL/L (3.5-5.1); Sodium 134 mmol/L (136-145); Total Protein,Serum 6.2 g/dl (6.3-8.2)
[2021-05-18 07:14] LABS: C-Reactive Protein 62.4 mg/L (0-4)
--- NOTE | 2021-05-18 08:09 | HMH.ACPN2 ---
Internal Medicine - PN: Johnathan *Date: 05/18/21 *Time: 08:09 Interval history: No acute events over the last 24 hours. Patient has been maintaining O2 sats in the mid 90s on high flow nasal cannula and has had one-on-one care to remind patient to not remove his oxygen. Exam Vital signs and Labs for Last 24 Hours: Temp Pulse Resp BP Pulse Ox 97.5 F L 81 24 126/83 91 L 05/17/21 20:00 05/18/21 06:55 05/18/21 06:00 05/18/21 06:00 05/18/21 06:55 Laboratory Results - last 24 hr 05/17/21 06:00: Sodium 134 L, Potassium 3.9, Chloride 99, Carbon Dioxide 27, Anion Gap 11.9, BUN 45 H, Creatinine 1.40 H, Estimated Creat Clear 60, Estimated GFR 49 L, Est GFR ( Amer) 59, Glucose 135 H, Calcium 8.1 L, Total Bilirubin 0.7, AST 59, ALT 31, Alkaline Phosphatase 104, Total Protein 6.3, Albumin 3.4 L, Globulin 2.9, Albumin/Globulin Ratio 1.2 05/17/21 11:44: POC Glucose 228 H 05/17/21 17:42: POC Glucose 327 H* 05/17/21 23:01: POC Glucose 195 H 05/18/21 05:36: WBC 20.6 H*, RBC 5.06, Hgb 15.9, Hct 47.9, MCV 94.6 H, MCH 31.4 H, MCHC 33.2, RDW 14.2, Plt Count 271 D, MPV 9.5, Neut % (Auto) 90.1 H, Lymph % (Auto) 5.5 L, [place] % (Auto) 3.8, Eos % (Auto) 0.2, Baso % (Auto) 0.5, Neut # (Auto) 18.6 H, Lymph # (Auto) 1.1, [place] # (Auto) 0.8, Eos # (Auto) 0.0, Baso # (Auto) 0.1, Total Counted 100, Neutrophils % (Manual) 82 H, Band Neutrophils % 10.0 H, Lymphocytes % (Manual) 8 L, Platelet Estimate Normal, RBC Morphology Normal 05/18/21 05:36: Sodium 134 L, Potassium 3.9, Chloride 101, Carbon Dioxide 26, Anion Gap 10.9, BUN 48 H, Creatinine 1.40 H, Estimated Creat Clear 61, Estimated GFR 49 L, Est GFR ( Amer) 59, Glucose 114 H, Calcium 8.3 L, Total Bilirubin 1.0, AST 53, ALT 28, Alkaline Phosphatase 112, C-Reactive Protein 62.4 H D, Total Protein 6.2 L, Albumin 3.3 L, Globulin 2.9, Albumin/Globulin Ratio 1.1 05/18/21 05:36: PT 44.8 H, INR 4.43 H I & O for Last 24 hours: Intake & Output 05/15/21 05/16/21 05/17/21 05/18/21 11:59 11:59 11:59 11:59 Intake Total 600 / 600 820 / 820 480 / 480 240 / 240 Output Total 3300 / 3300 2050 / 2050 1550 / 1550 1000 / 1000 Balance -2700 / -2700 -1230 / -1230 -1070 / -1070 -760 / -760 Weight 202 lb 2.622 oz 187 lb 3.2 oz 215 lb 6 oz 216 lb 14.958 oz Microbiology Reports for the Last 24 Hours: Microbiology 05/12/21 14:54 Blood Blood Culture - Final NO GROWTH AFTER 5 DAYS 05/15/21 10:16 Sputum - Expectorated Sputum Gram Stain - Final 05/15/21 10:16 Sputum - Expectorated Sputum Sputum Culture - Final Enterobacter aerogenes 05/12/21 15:00 Blood Blood Culture - Final NO GROWTH AFTER 5 DAYS 05/13/21 09:12 Nose - Nasal MRSA Culture - Final Negative Narrative: Patient looks weak this morning. He remains oriented to person and place. Oropharynx has tacky mucous membranes. Neck is supple. Lungs are distant but clear. Heart has a regular rate and rhythm. Abdomen is soft, nontender, nondistended. Assessment and Plan (1) Acute respiratory failure with hypoxia Status: Acute Category: Medical Code(s): J96.01 - Acute respiratory failure with hypoxia (2) Viral pneumonia Status: Acute Category: Medical Code(s): J12.9 - Viral pneumonia, unspecified (3) Long-term insulin use Status: Acute Category: Medical Code(s): Z79.4 - [facility] (current) use of insulin (4) Diabetes mellitus with hyperglycemia Status: Acute Category: Medical Code(s): E11.65 - Type 2 diabetes mellitus with hyperglycemia (5) Essential hypertension Status: Acute Category: Medical Code(s): I10 - Essential (primary) hypertension (6) Status post aortic valve replacement Status: Acute Category: Surgical Code(s): Z95.2 - Presence of prosthetic heart valve (7) Former cigarette smoker Status: Acute Category: Social Hx Code(s): Z87.891 - Personal history of nicotine
[2021-05-18 12:00] LABS: POC Glucose,Bedside 128 (70-110)
[2021-05-18 12:00] LABS: POC Glucose,Bedside 299 (70-110)
--- NOTE | 2021-05-18 15:31 | HMH.ACPN ---
Internal Medicine - PN: Subj *Date: 05/18/21 *Time: 15:31 Exam Vital signs and Labs for Last 24 Hours: Temp Pulse Resp BP Pulse Ox 98.3 F 80 20 118/65 93 L 05/18/21 13:35 05/18/21 15:10 05/18/21 13:35 05/18/21 13:35 05/18/21 15:10 Laboratory Results - last 24 hr 05/17/21 11:44: POC Glucose 228 H 05/17/21 17:42: POC Glucose 327 H* 05/17/21 23:01: POC Glucose 195 H 05/18/21 05:36: WBC 20.6 H*, RBC 5.06, Hgb 15.9, Hct 47.9, MCV 94.6 H, MCH 31.4 H, MCHC 33.2, RDW 14.2, Plt Count 271 D, MPV 9.5, Neut % (Auto) 90.1 H, Lymph % (Auto) 5.5 L, [place] % (Auto) 3.8, Eos % (Auto) 0.2, Baso % (Auto) 0.5, Neut # (Auto) 18.6 H, Lymph # (Auto) 1.1, [place] # (Auto) 0.8, Eos # (Auto) 0.0, Baso # (Auto) 0.1, Total Counted 100, Neutrophils % (Manual) 82 H, Band Neutrophils % 10.0 H, Lymphocytes % (Manual) 8 L, Platelet Estimate Normal, RBC Morphology Normal 05/18/21 05:36: Sodium 134 L, Potassium 3.9, Chloride 101, Carbon Dioxide 26, Anion Gap 10.9, BUN 48 H, Creatinine 1.40 H, Estimated Creat Clear 61, Estimated GFR 49 L, Est GFR ( Amer) 59, Glucose 114 H, Calcium 8.3 L, Total Bilirubin 1.0, AST 53, ALT 28, Alkaline Phosphatase 112, C-Reactive Protein 62.4 H D, Total Protein 6.2 L, Albumin 3.3 L, Globulin 2.9, Albumin/Globulin Ratio 1.1 05/18/21 05:36: PT 44.8 H, INR 4.43 H 05/18/21 06:33: POC Glucose 128 H 05/18/21 11:44: POC Glucose 299 H I & O for Last 24 hours: Intake & Output 05/15/21 05/16/21 05/17/21 05/18/21 23:59 23:59 23:59 23:59 Intake Total 580 / 580 600 / 600 480 / 480 480 / 480 Output Total 2900 / 2900 1650 / 2250 1600 / 1600 Balance -2320 / -2320 -1050 / -1650 -1120 / -1120 480 / 480 Weight 91.7 kg 84.912 kg 97.692 kg 98.4 kg Microbiology Reports for the Last 24 Hours: Microbiology 05/12/21 14:54 Blood Blood Culture - Final NO GROWTH AFTER 5 DAYS 05/15/21 10:16 Sputum - Expectorated Sputum Gram Stain - Final 05/15/21 10:16 Sputum - Expectorated Sputum Sputum Culture - Final Enterobacter aerogenes 05/12/21 15:00 Blood Blood Culture - Final NO GROWTH AFTER 5 DAYS Assessment and Plan (1) Acute respiratory failure with hypoxia Status: Acute Category: Medical Code(s): J96.01 - Acute respiratory failure with hypoxia (2) Viral pneumonia Status: Acute Category: Medical Code(s): J12.9 - Viral pneumonia, unspecified (3) Long-term insulin use Status: Acute Category: Medical Code(s): 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 (4) Diabetes mellitus with hyperglycemia Status: Acute Category: Medical Code(s): E11.65 - Type 2 diabetes mellitus with hyperglycemia (5) Essential hypertension Status: Acute Category: Medical Code(s): I10 - Essential (primary) hypertension (6) Status post aortic valve replacement Status: Acute Category: Surgical Code(s): Z95.2 - Presence of prosthetic heart valve (7) Former cigarette smoker Status: Acute Category: Social Hx Code(s): Z87.891 - Personal history of nicotine dependence (8) Pneumonia due to COVID-19 virus Status: Acute Category: Medical Code(s): U07.1 - COVID-19; J12.82 - Pneumonia due to coronavirus disease 2019 (9) COVID-19 virus infection Status: Acute Category: Medical Code(s): U07.1 - COVID-19 (10) Left leg DVT Status: Acute Category: Medical Code(s): I82.402 - Acute embolism and thrombosis of unspecified deep veins of left lower extremity (11) Acute kidney injury Status: Resolved Category: Medical Code(s): N17.9 - Acute kidney failure, unspecified (12) Infection due to Enterobacter aerogenes Status: Acute Category: Medical Code(s): A49.8 - Other bacterial infections of unspecified site The patient's infection will respond to the chosen ABx?: Yes (CONTINUE CURRENT ABX) Is the patient receiving the right drug, dose, and route?: Yes Could a more targeted ABx be ordered?: No (CX
[2021-05-18 17:05] LABS: POC Glucose,Bedside 321 (70-110)
--- NOTE | 2021-05-18 18:15 | PC.NURSE ---
Addendum entered by Maxine Ford RN 05/18/21 18:45: In addition, pt has been NSR w/ frequent PVCs on tele this shift. Original Note: Pt has rested majority of this shift. Pt was encouraged to get up to chair for lunch, but pt refused stated he was just tired . Pt had an adequate appetite for breakfast and lunch, but did refuse supper. Pt has remained prone or side-lying while resting. Pt only required NRB on top of vapotherm briefly this shift, and has been on just vapotherm the remainder of this shift. Sats have been 88% or greater. Mitts have remained off this shift and pt is less agitated and confused compared to prior shifts. No other acute changes or complaints, will continue to monitor.
[2021-05-19] VITALS (22 sets, daily range): BP systolic 115–163; BP diastolic 58–96; PULSE 50–84; RESP 20–36; TEMP 36.4–36.9; O2SAT 93–100; BMI 28.2
[2021-05-19 00:40] LABS: POC Glucose,Bedside 248 (70-110)
[2021-05-19 05:42] LABS: Basophils # 0.1 K/mm3 (0-0.2); Basophils % 0.2 % (0.1-2.0); Hematocrit 45.5 % (42.0-52.0); Hemoglobin 14.9 g/dL (14.1-18.0); Lymphocytes # 0.7 K/mm3 (0.7-4.5); Lymphocytes % 3.4 % (10-50); Mean Corpuscular HGB Conc 32.8 g/dL (31.8-35.4); Mean Corpuscular Volume 97.5 fl (80-94); Mean Platelet Volume 9.2 fl (7.4-10.4); Monocytes # 0.8 K/mm3 (0.1-1.0); Neutrophils # 18.2 K/mm3 (1.8-7.8); Neutrophils % 92.4 % (37.0-80.0); Platelet Count 133 K/mm3 (142-424); Red Blood Count 4.66 M/mm3 (4.60-6.20); Red Cell Distribution Width 14.4 % (11.5-17.5); White Blood Count 19.7 K/mm3 (4.8-10.8)
[2021-05-19 05:43] LABS: MANUAL DIFFERENTIAL MANUAL DIFFERENTIAL (MANUAL DIFF)
[2021-05-19 05:54] LABS: Alanine Aminotransferase 30 U/L (12-78); Albumin Level 2.8 g/dl (3.5-5.0); Alkaline Phosphatase 117 U/L (38-126); Anion Gap 12.4 mEq/L (5-15); Aspartate Amino Transferase 78 U/L (17-59); Bilirubin,Total 1.9 mg/dl (0.2-1.3); Blood Urea Nitrogen 54 mg/dl (9-20); Calcium 7.6 mg/dl (8.4-10.2); Carbon Dioxide 19 mmol/L (22.0-30.0); Chloride 102 mmol/L (98-107); Creatinine Clearance Estimated 57 mL/min (50-200); Estimated Glomerular Filt Rate 53 ml/min (>60); GFR (African American) 65 ML/MIN (>60); Globulin 2.7 g/dL (1.3-3.2); Glucose 299 mg/dl (74-100); Potassium 4.4 mmoL/L (3.5-5.1); Sodium 129 mmol/L (136-145); Total Protein,Serum 5.5 g/dl (6.3-8.2)
[2021-05-19 05:56] LABS: Lymphocytes % 4 % (10-50); Monocytes % 2 % (2-9); Neutrophils % 84 % (42-76); Total Cells Counted 100
[2021-05-19 05:57] LABS: Platelet Estimate Normal; RBC Morphology Normal
[2021-05-19 06:04] LABS: Prothrombin Time 84.4 seconds (10.1-12.5)
--- NOTE | 2021-05-19 06:30 | PC.NURSE ---
dr sanchez paged to report critical lab values
[2021-05-19 07:34] LABS: C-Reactive Protein 48.3 mg/L (0-4)
--- NOTE | 2021-05-19 07:35 | HMH.ACPN2 ---
Internal Medicine - PN: Subj *Date: 05/19/21 *Time: 07:35 Interval history: Patient continues to be restless per nursing staff which usually results in patient removal of his supplemental oxygen. When staff has been able to remain one-on-one with the patient he does better. He has maintained appropriate O2 sats with high flow nasal cannula. Patient's level of alertness and orientation fluctuates according to staff as well. Exam Vital signs and Labs for Last 24 Hours: Temp Pulse Resp BP Pulse Ox 97.7 F 72 20 143/75 H 93 L 05/19/21 05:53 05/19/21 06:02 05/19/21 05:53 05/19/21 05:53 05/19/21 06:02 Laboratory Results - last 24 hr 05/18/21 06:33: POC Glucose 128 H 05/18/21 11:44: POC Glucose 299 H 05/18/21 16:40: POC Glucose 321 H* 05/18/21 21:54: POC Glucose 248 H 05/19/21 05:15: WBC 19.7 H, RBC 4.66, Hgb 14.9, Hct 45.5, MCV 97.5 H, MCH 32.0 H, MCHC 32.8, RDW 14.4, Plt Count 133 L D, MPV 9.2, Neut % (Auto) 92.4 H, Lymph % (Auto) 3.4 L, [place] % (Auto) 4.0, Eos % (Auto) 0.0 L, Baso % (Auto) 0.2, Neut # (Auto) 18.2 H, Lymph # (Auto) 0.7, [place] # (Auto) 0.8, Eos # (Auto) 0.0, Baso # (Auto) 0.1, Total Counted 100, Neutrophils % (Manual) 84 H, Band Neutrophils % 10.0 H, Lymphocytes % (Manual) 4 L, Monocytes % (Manual) 2, Platelet Estimate Normal, RBC Morphology Normal 05/19/21 05:15: Sodium 129 L, Potassium 4.4, Chloride 102, Carbon Dioxide 19 L, Anion Gap 12.4, BUN 54 H, Creatinine 1.30 H, Estimated Creat Clear 57, Estimated GFR 53 L, Est GFR ( Amer) 65, Glucose 299 H D, Calcium 7.6 L, Total Bilirubin 1.9 H, AST 78 H D, ALT 30, Alkaline Phosphatase 117, Total Protein 5.5 L, Albumin 2.8 L D, Globulin 2.7, Albumin/Globulin Ratio 1.0 L 05/19/21 05:15: PT 84.4 H, INR 8.00 H I & O for Last 24 hours: Intake & Output 05/16/21 05/17/21 05/18/21 05/19/21 11:59 11:59 11:59 11:59 Intake Total 820 / 820 480 / 480 600 / 600 1640 / 1640 Output Total 2049 1550 / 1550 1000 / 1000 2049 Balance -1230 / -1230 -1070 / -1070 -400 / -400 -410 / -410 Weight 187 lb 3.2 oz 215 lb 6 oz 216 lb 14.958 oz 190 lb 8 oz Narrative: When I entered the room patient was sitting up in the bed with oxygen off with increased work of breathing. He was easily reoriented and calm down. HFNC was reapplied. Patient became calmer. He did report shortness of breath. He was oriented to place and name. Lungs have fair aeration. Heart has a regular rate and rhythm. Abdomen is soft and nontender. Notable labs:Platelet decreased from 271,000 to133,000, INR of 8 slight rise in BUN from 48 to 54 and decrease in creatinine from 1.4 to 1.3. 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 (4) Diabetes mellitus with hyperglycemia Status: Acute Category: Medical Code(s): E11.65 - Type 2 diabetes mellitus with hyperglycemia (5) Essential hypertension Status: Acute Category: Medical Code(s): I10 - Essential (primary) hypertension (6) Status post aortic valve replacement Status: Acute Category: Surgical Code(s): Z95.2 - Presence of prosthetic heart valve (7) Former cigarette smoker Status: Acute Category: Social Hx Code(s): Z87.891 - Personal history of nicotine dependence (8) Pneumonia due to COVID-19 virus Status: Acute Category: Medical Code(s): U07.1 - COVID-19; J12.82 - Pneumonia due to coronavirus disease 2018 (9) COVID-19 virus infection Status: Acute Category: Medical Code(s): U07.1 - COVID-19 (10) Left leg DVT Status: Acute Category: Medical Code(s): I82.402 - Acute embolism and thrombos
--- NOTE | 2021-05-19 09:41 | HMH.PULMPN ---
Internal Medicine - PN: Subj *Date: 05/19/21 *Time: 14:04 Interval history: No acute respiratory events over the weekend. Patient denies any worsening respiratory symptoms. Exam - Constitutional Constitutional:: Present: no acute distress, comfortable - HENMT Exam HENMT: Present: normocephalic, atraumatic - Eye Exam Eyes:: Present: normal appearance both eyes and related structures - Neck Exam Neck:: Present: normal visual inspection - Respiratory Exam Respiratory:: Present: able to speak in complete sentences, respiratory distress, rales. 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 (4) Diabetes mellitus with hyperglycemia Status: Acute Category: Medical Code(s): E11.65 - Type 2 diabetes mellitus with hyperglycemia (5) Essential hypertension Status: Acute Category: Medical Code(s): I10 - Essential (primary) hypertension (6) Status post aortic valve replacement Status: Acute Category: Surgical Code(s): Z95.2 - Presence of prosthetic heart valve (7) Former cigarette smoker Status: Acute Category: Social Hx Code(s): Z87.891 - Personal history of nicotine dependence (8) Pneumonia due to COVID-19 virus Status: Acute Category: Medical Code(s): U07.1 - COVID-19; J12.82 - Pneumonia due to coronavirus disease 2019 (9) COVID-19 virus infection Status: Acute Category: Medical Code(s): U07.1 - COVID-19 (10) Left leg DVT Status: Acute Category: Medical Code(s): I82.402 - Acute embolism and thrombosis of unspecified deep veins of left lower extremity (11) Acute kidney injury Status: Resolved Category: Medical Code(s): N17.9 - Acute kidney failure, unspecified (12) Infection due to Enterobacter aerogenes Status: Acute Category: Medical Code(s): A49.8 - Other bacterial infections of unspecified site - Assessment and plan all Dx Assessment and Plan for all problems:: #Acute hypoxic respiratory failure: #COVID-19 pneumonia: #History of DVT: # Recurrent DVT: 80-year-old male prior smoker, greater than 23-sayd-fryt smoking history. Not yet vaccinated. COVID-19 PCR positive. Flu panel negative CRP elevated at 54.7. On home anticoagulation apixaban 5 twice daily. DImer elevated at 0.74 ABG on admission showed metabolic acidosis with respiratory compensation with a PO2 of 76.4 and a PCO2 of 29.2 with a pH of 7.43 Chest x-ray on admission with bilateral diffuse groundglass opacities along with patchy consolidative lesion in the left lower lobe along with dense infiltrate in the right lower lobe. Sternal wires present. Cardiomegaly. Lower extremity Doppler positive for DVT. Patient has a history of DVT from June 2020 as per the patient and has been on anticoagulation since then. Initiated on Coumadin for treatment failure with Lovenox bridging. Interval update: Worsening leukocytosis. Continue to receive cefepime and azithromycin. Sputum growing Enterobacter aerogenes, which is sensitive to ceftriaxone. Nasal MRSA PCR negative. Blood cultures no growth 5 days Improved compliance with proning protocol, though not at goal. Improving oxygenation, saturating 96% on high flow nasal cannula sitting upright. Plan: -Continue azithromycin x days. Continue cefepime x 7 days -Continue awake proning protocol -Continue remdesivir, dexamethasone and barcitinib. -Continue Adv
--- NOTE | 2021-05-19 11:26 | HMH.PTEV ---
Physical Therapy Evaluation Rehab PT IP Evaluation Start: 05/19/21 07:08 Freq: ONCE Status: Active Protocol: Document 05/19/21 11:14 KAY (Rec: 05/19/21 11:25 KAY [id number]) Subjective/History History History Patient is a 80 year old male admitted to [facility] 05/12/21 seondary to increasing SOB. Patient was diagnosed with acute respiratory failure and COVID pneumonia. Prior to admittance patient reports that he was indpendent with all transfers and ambulation. Patient reports that he lives at home with his with no steps to worry about. Subjective Subjective I can't wait to get all of these tubes off of me. Rehab PT IP Eval Objective Appearance Patient Behavior Appropriate Patient Orientation Person,Birthday Difficulty following instructions mild Speech Pattern Mumbled Ambulation Patient Able to Ambulate Yes Ambulation Observation IP General Gait Pattern Observation Wide Based Gait Ambulation Distance (feet) 5 Ambulation Assistive Device None Ambulation Ability Contact Guard/Hand Hold Balance Ability to Arise Able, uses arms to help Sitting Balance Steady, safe Standing Balance Steady, wide stance Dynamic Sitting Balance Ability Normal Dynamic Standing Balance Ability Normal Transfers Bed Transfer Ability Independent Chair Transfer Ability Contact Guard/Hand Hold Sit to Stand Bed Transfer Ability Contact Guard/Hand Hold ROM All Extremities PT ROM Status WFL MMT All Extremities PT MMT WFL Rehab PT IP prob,goals,plan Problems Date of Evaluation: 05/19/21 PT IP Problems Gait,Balance,Self care,Safety Rehab Potential Rehab Potential Fair Equipment Needs Assistive Devices Rolling / Wheeled Walker Plan PT Intervention Plan Bed Mobility,Transfers,Gait, Balance,Self care,Safety, Therapeutic Exercise PT Plan Frequency BID Duration LOS Discharge Goals Bed Transfer Ability Independent Sit to Stand Chair Transfer Ability Independent Ambulation Assistive Device Rolling Walker Ambulation Distance (feet) 20 Discharge Plan PT Discharge Plan Patient to be seen BID LOS until deemed me
[2021-05-19 11:29] LABS: POC Glucose,Bedside 384 (70-110)
[2021-05-19 16:48] LABS: POC Glucose,Bedside 346 (70-110)
--- NOTE | 2021-05-19 19:10 | PC.NURSE ---
Pt has had an overall better day. Vapotherm is now at 40 L and 90%. Pt resting at this time. Pt has proned and been up to chair this shift. CB in reach. Continues to be 1:1 for safety and to ensure vapotherm in place.
[2021-05-19 22:17] LABS: POC Glucose,Bedside 254 (70-110)
[2021-05-20] VITALS (19 sets, daily range): BP systolic 121–165; BP diastolic 61–88; PULSE 60–90; RESP 16–26; TEMP 36.3–37.1; O2SAT 93–100; BMI 28.0
--- NOTE | 2021-05-20 04:49 | PC.NURSE ---
Addendum entered by Lynn Nieves RN 05/20/21 05:45: 1300 ml of urine out via catheter this shift Original Note: pt has rested some this shift, remains one on one to ensure O2 stays in place, currently on vapotherm at 30L, 70%, o2 sats have been 98-100% this shift, pt has proned and laid on side t/o most of shift, HR 63-83 this shift, pt has removed O2 several times this shift and has been educated on the importance of keeping it on, haddad remains in place, 900 mL of urine out so far this shift
[2021-05-20 05:39] LABS: POC Glucose,Bedside 192 (70-110)
[2021-05-20 06:19] LABS: Basophils % 0.2 % (0.1-2.0); Hematocrit 44.5 % (42.0-52.0); Hemoglobin 14.6 g/dL (14.1-18.0); Lymphocytes # 0.6 K/mm3 (0.7-4.5); Lymphocytes % 2.6 % (10-50); Mean Corpuscular HGB Conc 32.8 g/dL (31.8-35.4); Mean Corpuscular Hemoglobin 31.7 pg (27.0-31.2); Mean Corpuscular Volume 96.7 fl (80-94); Mean Platelet Volume 9.4 fl (7.4-10.4); Neutrophils # 18.8 K/mm3 (1.8-7.8); Neutrophils % 92.1 % (37.0-80.0); Platelet Count 148 K/mm3 (142-424); Red Cell Distribution Width 14.8 % (11.5-17.5); White Blood Count 20.4 K/mm3 (4.8-10.8)
[2021-05-20 06:23] LABS: Alanine Aminotransferase 31 U/L (12-78); Albumin Level 2.7 g/dl (3.5-5.0); Alkaline Phosphatase 117 U/L (38-126); Anion Gap 11.2 mEq/L (5-15); Aspartate Amino Transferase 60 U/L (17-59); Bilirubin,Total 1.5 mg/dl (0.2-1.3); Blood Urea Nitrogen 51 mg/dl (9-20); Calcium 7.7 mg/dl (8.4-10.2); Carbon Dioxide 19 mmol/L (22.0-30.0); Chloride 104 mmol/L (98-107); Creatinine Clearance Estimated 62 mL/min (50-200); Estimated Glomerular Filt Rate 59 ml/min (>60); GFR (African American) 71 ML/MIN (>60); Globulin 2.8 g/dL (1.3-3.2); Glucose 184 mg/dl (74-100); Potassium 4.2 mmoL/L (3.5-5.1); Sodium 130 mmol/L (136-145); Total Protein,Serum 5.5 g/dl (6.3-8.2)
[2021-05-20 06:28] LABS: C-Reactive Protein 24.1 mg/L (0-4)
[2021-05-20 06:35] LABS: MANUAL DIFFERENTIAL MANUAL DIFFERENTIAL (MANUAL DIFF)
--- NOTE | 2021-05-20 07:03 | HMH.ACPN2 ---
Internal Medicine - PN: Subj *Date: 05/20/21 *Time: 07:03 Interval history: No acute events over the last 24 hours. Patient has spent significant time proning. He has been weaned on HFNC to an FiO2 of 70% at 30 L/min. O2 sats are maintaining in the high 90s. Patient denies any new complaints. Exam Vital signs and Labs for Last 24 Hours: Temp Pulse Resp BP Pulse Ox 98.7 F 78 22 126/73 100 05/20/21 05:46 05/20/21 05:56 05/20/21 05:46 05/20/21 05:46 05/20/21 05:56 Laboratory Results - last 24 hr 05/19/21 05:15: C-Reactive Protein 48.3 H 05/19/21 11:10: POC Glucose 384 H* 05/19/21 15:45: POC Glucose 346 H* 05/19/21 21:19: POC Glucose 254 H 05/20/21 05:21: WBC 20.4 H*, RBC 4.60, Hgb 14.6, Hct 44.5, MCV 96.7 H, MCH 31.7 H, MCHC 32.8, RDW 14.8, Plt Count 148, MPV 9.4, Neut % (Auto) 92.1 H, Lymph % (Auto) 2.6 L, [place] % (Auto) 5.0, Eos % (Auto) 0.0 L, Baso % (Auto) 0.2, Neut # (Auto) 18.8 H, Lymph # (Auto) 0.6 L, [place] # (Auto) 1.0, Eos # (Auto) 0.0, Baso # (Auto) 0.0 05/20/21 05:21: Sodium 130 L, Potassium 4.2, Chloride 104, Carbon Dioxide 19 L, Anion Gap 11.2, BUN 51 H, Creatinine 1.20, Estimated Creat Clear 62, Estimated GFR 59, Est GFR ( Amer) 71, Glucose 184 H, Calcium 7.7 L, Total Bilirubin 1.5 H, AST 60 H, ALT 31, Alkaline Phosphatase 117, C-Reactive Protein 24.1 H D, Total Protein 5.5 L, Albumin 2.7 L, Globulin 2.8, Albumin/Globulin Ratio 1.0 L 05/20/21 05:23: POC Glucose 192 H I & O for Last 24 hours: Intake & Output 05/17/21 05/18/21 05/19/21 05/20/21 11:59 11:59 11:59 11:59 Intake Total 480 / 480 600 / 600 1880 / 1880 700 / 700 Output Total 1550 / 1550 1000 / 1000 0 / 0 2700 / 2700 Balance -1070 / -1070 -400 / -400 -170 / -170 -2000 / -2000 Weight 215 lb 6 oz 216 lb 14.958 oz 190 lb 8 oz 189 lb 9 oz Narrative: Patient awakens easily. This morning he is oriented to person and place. Lung exam has distant breath sounds with faint rales heard at the right base. Heart has a regular rate and rhythm. Abdomen is soft and nontender. Extremities are warm to touch. Assessment and Plan (1) Acute respiratory failure with hypoxia Status: Acute Category: Medical Code(s): J96.01 - Acute respiratory failure with hypoxia (2) Viral pneumonia Status: Acute Category: Medical Code(s): J12.9 - Viral pneumonia, unspecified (3) Long-term insulin use Status: Acute Category: Medical Code(s): Z79.4 - correction (current) use of insulin (4) Diabetes mellitus with hyperglycemia Status: Acute Category: Medical Code(s): E11.65 - Type 2 diabetes mellitus with hyperglycemia (5) Essential hypertension Status: Acute Category: Medical Code(s): I10 - Essential (primary) hypertension (6) Status post aortic valve replacement Status: Acute Category: Surgical Code(s): Z95.2 - Presence of prosthetic heart valve (7) Former cigarette smoker Status: Acute Category: Social Hx Code(s): Z87.891 - Personal history of nicotine dependence (8) Pneumonia due to COVID-19 virus Status: Acute Category: Medical Code(s): U07.1 - COVID-19; J12.82 - Pneumonia due to coronavirus disease 2019 (9) COVID-19 virus infection Status: Acute Category: Medical Code(s): U07.1 - COVID-19 (10) Left leg DVT Status: Acute Category: Medical Code(s): I82.402 - Acute embolism and thrombosis of unspecified deep veins of left lower extremity (11) Acute kidney injury Status: Resolved Category: Medical Code(s): N17.9 - Acute kidney failure, unspecified (12) Infection due to Enterobacter aerogenes Status: Acute Category: Medical Code(s): A49.8 - Other bacterial infections of unspecified site - Assessment and plan all Dx Assessment and Plan for all problems:: 1. Continue Remdesivir, baricitinib, cefepime, azithromycin, and high flow nasal cannula for pneumonia with respiratory failure and COVID-19 infection. 2. INR is supratherapeutic. Warfarin will be held 3
[2021-05-20 08:21] LABS: INR 1.51 (0.9-1.1); Prothrombin Time 16.6 seconds (10.1-12.5)
[2021-05-20 08:44] LABS: Lymphocytes % 4 % (10-50); Monocytes % 1 % (2-9); Neutrophils % 95 % (42-76); Platelet Estimate Normal; RBC Morphology Normal; Total Cells Counted 100
--- NOTE | 2021-05-20 09:26 | HMH.ACPN2 ---
Internal Medicine - PN: Subj *Date: 05/20/21 *Time: 09:26 Exam Vital signs and Labs for Last 24 Hours: Temp Pulse Resp BP Pulse Ox 97.9 F 79 26 H 149/80 H 93 L 05/20/21 07:29 05/20/21 07:29 05/20/21 07:29 05/20/21 07:29 05/20/21 07:29 Laboratory Results - last 24 hr 05/19/21 11:10: POC Glucose 384 H* 05/19/21 15:45: POC Glucose 346 H* 05/19/21 21:19: POC Glucose 254 H 05/20/21 05:21: WBC 20.4 H*, RBC 4.60, Hgb 14.6, Hct 44.5, MCV 96.7 H, MCH 31.7 H, MCHC 32.8, RDW 14.8, Plt Count 148, MPV 9.4, Neut % (Auto) 92.1 H, Lymph % (Auto) 2.6 L, [place] % (Auto) 5.0, Eos % (Auto) 0.0 L, Baso % (Auto) 0.2, Neut # (Auto) 18.8 H, Lymph # (Auto) 0.6 L, [place] # (Auto) 1.0, Eos # (Auto) 0.0, Baso # (Auto) 0.0, Total Counted 100, Neutrophils % (Manual) 95 H, Lymphocytes % (Manual) 4 L, Monocytes % (Manual) 1 L, Platelet Estimate Normal, RBC Morphology Normal 05/20/21 05:21: Sodium 130 L, Potassium 4.2, Chloride 104, Carbon Dioxide 19 L, Anion Gap 11.2, BUN 51 H, Creatinine 1.20, Estimated Creat Clear 62, Estimated GFR 59, Est GFR ( Amer) 71, Glucose 184 H, Calcium 7.7 L, Total Bilirubin 1.5 H, AST 60 H, ALT 31, Alkaline Phosphatase 117, C-Reactive Protein 24.1 H D, Total Protein 5.5 L, Albumin 2.7 L, Globulin 2.8, Albumin/Globulin Ratio 1.0 L 05/20/21 05:23: POC Glucose 192 H 05/20/21 07:29: PT 16.6 H, INR 1.51 H I & O for Last 24 hours: Intake & Output 05/17/21 05/18/21 05/19/21 05/20/21 23:59 23:59 23:59 23:59 Intake Total 480 / 480 1999 / 1999 840 / 840 220 / 220 Output Total 1600 / 1600 2049 1400 / 1400 1300 / 1300 Balance -1120 / -1120 -50 / -50 -560 / -560 -1080 / -1080 Weight 97.692 kg 98.4 kg 86.409 kg 85.984 kg Assessment and Plan (1) Acute respiratory failure with hypoxia Status: Acute Category: Medical Code(s): J96.01 - Acute respiratory failure with hypoxia (2) Viral pneumonia Status: Acute Category: Medical Code(s): J12.9 - Viral pneumonia, unspecified (3) Long-term insulin use Status: Acute Category: Medical Code(s): 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 (4) Diabetes mellitus with hyperglycemia Status: Acute Category: Medical Code(s): E11.65 - Type 2 diabetes mellitus with hyperglycemia (5) Essential hypertension Status: Acute Category: Medical Code(s): I10 - Essential (primary) hypertension (6) Status post aortic valve replacement Status: Acute Category: Surgical Code(s): Z95.2 - Presence of prosthetic heart valve (7) Former cigarette smoker Status: Acute Category: Social Hx Code(s): Z87.891 - Personal history of nicotine dependence (8) Pneumonia due to COVID-19 virus Status: Acute Category: Medical Code(s): U07.1 - COVID-19; J12.82 - Pneumonia due to coronavirus disease 2019 (9) COVID-19 virus infection Status: Acute Category: Medical Code(s): U07.1 - COVID-19 (10) Left leg DVT Status: Acute Category: Medical Code(s): I82.402 - Acute embolism and thrombosis of unspecified deep veins of left lower extremity (11) Acute kidney injury Status: Resolved Category: Medical Code(s): N17.9 - Acute kidney failure, unspecified (12) Infection due to Enterobacter aerogenes Status: Acute Category: Medical Code(s): A49.8 - Other bacterial infections of unspecified site The patient's infection will respond to the chosen ABx?: Yes (ENTEROBACTER AEROGENES, CEFEPIME SUSCEPTIBLE) Is the patient receiving the right drug, dose, and route?: Yes Could a more targeted ABx be ordered?: No
--- NOTE | 2021-05-20 09:28 | HMH.PULMPN ---
Internal Medicine - PN: Subj *Date: 05/20/21 *Time: 11:20 Interval history: No acute respiratory events overnight. Exam - Constitutional Constitutional:: Present: no acute distress, comfortable - HENMT Exam HENMT: Present: normocephalic, atraumatic - Eye Exam Eyes:: Present: normal appearance both eyes and related structures - Neck Exam Neck:: Present: normal visual inspection - Respiratory Exam Respiratory:: Present: able to speak in complete sentences, respiratory distress, rales, rhonchi. Absent: wheezing - Cardiovascular Exam Cardiac:: Present: S1, S2 - GI Exam GI:: Present: soft, no tenderness - Skin Exam Skin: Present: warm, no rash - Neurological Exam Neurological: Present: alert, awake, normal cognition - Extremities Exam Extremities: Present: no cyanosis, no clubbing, edema Assessment and Plan (1) Acute respiratory failure with hypoxia Status: Acute Category: Medical Code(s): J96.01 - Acute respiratory failure with hypoxia (2) Viral pneumonia Status: Acute Category: Medical Code(s): J12.9 - Viral pneumonia, unspecified (3) Long-term insulin use Status: Acute Category: Medical Code(s): 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.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 (4) Diabetes mellitus with hyperglycemia Status: Acute Category: Medical Code(s): E11.65 - Type 2 diabetes mellitus with hyperglycemia (5) Essential hypertension Status: Acute Category: Medical Code(s): I10 - Essential (primary) hypertension (6) Status post aortic valve replacement Status: Acute Category: Surgical Code(s): Z95.2 - Presence of prosthetic heart valve (7) Former cigarette smoker Status: Acute Category: Social Hx Code(s): Z87.891 - Personal history of nicotine dependence (8) Pneumonia due to COVID-19 virus Status: Acute Category: Medical Code(s): U07.1 - COVID-19; J12.82 - Pneumonia due to coronavirus disease 2019 (9) COVID-19 virus infection Status: Acute Category: Medical Code(s): U07.1 - COVID-19 (10) Left leg DVT Status: Acute Category: Medical Code(s): I82.402 - Acute embolism and thrombosis of unspecified deep veins of left lower extremity (11) Acute kidney injury Status: Resolved Category: Medical Code(s): N17.9 - Acute kidney failure, unspecified (12) Infection due to Enterobacter aerogenes Status: Acute Category: Medical Code(s): A49.8 - Other bacterial infections of unspecified site - Assessment and plan all Dx Assessment and Plan for all problems:: #Acute hypoxic respiratory failure: #COVID-19 pneumonia: #History of DVT: # Recurrent DVT: 80-year-old male prior smoker, greater than [id number]-[id number] smoking history. Not yet vaccinated. COVID-19 PCR positive. Flu panel negative CRP elevated at 54.7. On home anticoagulation apixaban 5 twice daily. DImer elevated at 0.74 ABG on admission showed metabolic acidosis with respiratory compensation with a PO2 of 76.4 and a PCO2 of 29.2 with a pH of 7.43 Chest x-ray on admission with bilateral diffuse groundglass opacities along with patchy consolidative lesion in the left lower lobe along with dense infiltrate in the right lower lobe. Sternal wires present. Cardiomegaly. Lower extremity Doppler positive for DVT. Patient has a history of DVT from June 2020 as per the patient and has been on anticoagulation since then. Initiated on Coumadin for treatment failure. Sputum growing Enterobacter aerogenes, which is sensitive to ceftriaxone. Nasal MRSA PCR negative. Blood cultures no growth 5 days Interval update: Continued to have neutrophilic leukocytosis and relatively stable 20 for the last 3 days. Started on methylprednisolone 125 every 6 by primary team 3 days ago. We will continue to monitor. Continue to receive cefepime and azithromycin. Respiratory status remain critical, though slightly improved. This morning on 30 L 70% saturating 92% sitting upright. Still not at goal with proning protocol. We will closely mon
--- NOTE | 2021-05-20 10:48 | DIET.NUTRFU ---
Reviewing meal intake, showing slight decline, only consumed 10% of breakfast and averaging 50% prior to that. Wt fluctuation during stay possibly d/t IVF and change in meal intake. Will start glucerna BID to better meet needs.
--- NOTE | 2021-05-20 11:21 | XR_ITS ---
FINAL REPORT CLINICAL HISTORY: Hypoxia COMPARISON: 05/15/2021 FINDINGS: A single view of the chest was obtained. The patient is status post median sternotomy. The heart is normal in size. The mediastinum is unremarkable. There are persistent pulmonary opacities which may represent pneumonia or edema. There is no pleural effusion. There is no pneumothorax. There is no acute osseous abnormality. IMPRESSION: Persistent pulmonary opacities may represent pneumonia or edema. Reviewed, Interpreted and Dictated by Kalin Tovar III, MD Transcribed by Shana Hung Authenticated by Kalin Tovar III, MD on 05/20/2021 12:41:51 PM [facility]
[2021-05-20 11:49] LABS: POC Glucose,Bedside 293 (70-110)
[2021-05-20 16:59] LABS: POC Glucose,Bedside 329 (70-110)
--- NOTE | 2021-05-20 18:05 | PC.NURSE ---
No acute changes noted this shift, patient remains on vapotherm at 30L/70% and has tolerated well, sitter at bedside who reminds patient to keep o2 in place, patient needs frequent reminding and redirection, patient received bed bath today and linen change. FC patent and draining clear yellow urine at bedside, no s/s of distress noted.
[2021-05-21] VITALS (14 sets, daily range): BP systolic 123–164; BP diastolic 64–84; PULSE 60–91; RESP 20–30; TEMP 36.1–36.9; O2SAT 92–98; BMI 27.2
[2021-05-21 00:21] LABS: POC Glucose,Bedside 277 (70-110)
--- NOTE | 2021-05-21 04:37 | PC.NURSE ---
Pt is currently on Vapotherm 25L 40%. O2 sats 90-94%. Has c/o soa at times and has screamed out for help. Pt redirected to keep O2 NC on and discouraged to scream out. Education provided. Pt is A&o x3. Pt has been encouraged to sleep prone. He has tolerated well. Pt has been in prone position most of the night. F/C draining to bedside with clear, dark yellow urine. Total urine output is 750 ml thus far. Medication administered per mar. Last fsbs was 277. VSS. Will continue to monitor.
[2021-05-21 05:48] LABS: POC Glucose,Bedside 140 (70-110)
[2021-05-21 06:48] LABS: Alanine Aminotransferase 34 U/L (12-78); Albumin Level 2.9 g/dl (3.5-5.0); Albumin/Globulin Ratio 1.1 (1.1-1.8); Alkaline Phosphatase 137 U/L (38-126); Anion Gap 9.6 mEq/L (5-15); Aspartate Amino Transferase 47 U/L (17-59); Bilirubin,Total 1.2 mg/dl (0.2-1.3); Blood Urea Nitrogen 44 mg/dl (9-20); Calcium 7.8 mg/dl (8.4-10.2); Carbon Dioxide 22 mmol/L (22.0-30.0); Chloride 104 mmol/L (98-107); Creatinine Clearance Estimated 60 mL/min (50-200); Estimated Glomerular Filt Rate 59 ml/min (>60); GFR (African American) 71 ML/MIN (>60); Globulin 2.6 g/dL (1.3-3.2); Glucose 140 mg/dl (74-100); Potassium 3.6 mmoL/L (3.5-5.1); Sodium 132 mmol/L (136-145); Total Protein,Serum 5.5 g/dl (6.3-8.2)
[2021-05-21 06:53] LABS: C-Reactive Protein 23.8 mg/L (0-4)
[2021-05-21 07:06] LABS: INR 2.56 (0.9-1.1)
--- NOTE | 2021-05-21 07:44 | HMH.ACPN2 ---
Internal Medicine - PN: Subj *Date: 05/21/21 *Time: 07:45 Interval history: Patient reports feeling tired and weak this morning. He has been weaned further on HFNC to 25 L/min at an FiO2 of 40%. This is maintaining his sats in the low 90s. Patient has been laying prone most of the night. He still has episodes of confusion. Exam Vital signs and Labs for Last 24 Hours: Temp Pulse Resp BP Pulse Ox 97.8 F 81 27 H 142/84 H 94 L 05/21/21 04:00 05/21/21 06:00 05/21/21 06:00 05/21/21 06:00 05/21/21 06:00 Laboratory Results - last 24 hr 05/20/21 05:21: Total Counted 100, Neutrophils % (Manual) 95 H, Lymphocytes % (Manual) 4 L, Monocytes % (Manual) 1 L, Platelet Estimate Normal, RBC Morphology Normal 05/20/21 07:29: PT 16.6 H, INR 1.51 H 05/20/21 11:41: POC Glucose 293 H 05/20/21 16:52: POC Glucose 329 H* 05/20/21 20:45: POC Glucose 277 H 05/21/21 05:40: POC Glucose 140 H 05/21/21 05:52: Sodium 132 L, Potassium 3.6, Chloride 104, Carbon Dioxide 22, Anion Gap 9.6, BUN 44 H, Creatinine 1.20, Estimated Creat Clear 60, Estimated GFR 59, Est GFR ( Amer) 71, Glucose 140 H, Calcium 7.8 L, Total Bilirubin 1.2, AST 47, ALT 34, Alkaline Phosphatase 137 H, C-Reactive Protein 23.8 H, Total Protein 5.5 L, Albumin 2.9 L, Globulin 2.6, Albumin/Globulin Ratio 1.1 05/21/21 05:52: PT 27.0 H, INR 2.56 H I & O for Last 24 hours: Intake & Output 05/18/21 05/19/21 05/20/21 05/21/21 11:59 11:59 11:59 11:59 Intake Total 600 / 600 1880 / 1880 940 / 940 940 / 940 Output Total 1000 / 1000 2050 / 2050 3050 / 3050 2150 / 2150 Balance -400 / -400 -170 / -170 -2110 / -2110 -1210 / -1210 Weight 216 lb 14.958 oz 190 lb 8 oz 189 lb 9 oz 184 lb 1.6 oz - Constitutional no acute distress - *Routine Respiratory Exam Present: CTA bilaterally, distant breath sounds - *Routine Cardiovascular Exam Present: RRR, Normal S1, Normal S2 - *Routine Abdominal Exam Present: soft, normoactive bowel sounds Assessment and Plan (1) Acute respiratory failure with hypoxia Status: Acute Category: Medical Code(s): J96.01 - Acute respiratory failure with hypoxia (2) Viral pneumonia Status: Acute Category: Medical Code(s): J12.9 - Viral pneumonia, unspecified (3) Long-term insulin use Status: Acute Category: Medical Code(s): Z79.4 - FPC (current) use of insulin (4) Diabetes mellitus with hyperglycemia Status: Acute Category: Medical Code(s): E11.65 - Type 2 diabetes mellitus with hyperglycemia (5) Essential hypertension Status: Acute Category: Medical Code(s): I10 - Essential (primary) hypertension (6) Status post aortic valve replacement Status: Acute Category: Surgical Code(s): Z95.2 - Presence of prosthetic heart valve (7) Former cigarette smoker Status: Acute Category: Social Hx Code(s): Z87.891 - Personal history of nicotine dependence (8) Pneumonia due to COVID-19 virus Status: Acute Category: Medical Code(s): U07.1 - COVID-19; J12.82 - Pneumonia due to coronavirus disease 2019 (9) COVID-19 virus infection Status: Acute Category: Medical Code(s): U07.1 - COVID-19 (10) Left leg DVT Status: Acute Category: Medical Code(s): I82.402 - Acute embolism and thrombosis of unspecified deep veins of left lower extremity (11) Acute kidney injury Status: Resolved Category: Medical Code(s): N17.9 - Acute kidney failure, unspecified (12) Infection due to Enterobacter aerogenes Status: Acute Category: Medical Code(s): A49.8 - Other bacterial infections of unspecified site - Assessment and plan all Dx Assessment and Plan for all problems:: 1. Continue Remdesivir, baricitinib, cefepime, azithromycin, and high flow nasal cannula for pneumonia with respiratory failure and COVID-19 infection. 2. INR is therapeutic. 3. Continue Advair and duonebs 4. Continue to wean oxygen to keep sats greater than 90%. 5. Enterobacter is sensitive to both cefepime whi
[2021-05-21 08:26] LABS: Basophils % 0.1 % (0.1-2.0); Hematocrit 44.3 % (42.0-52.0); Hemoglobin 14.9 g/dL (14.1-18.0); Lymphocytes # 0.4 K/mm3 (0.7-4.5); Lymphocytes % 1.7 % (10-50); Mean Corpuscular HGB Conc 33.6 g/dL (31.8-35.4); Mean Corpuscular Hemoglobin 31.8 pg (27.0-31.2); Mean Corpuscular Volume 94.7 fl (80-94); Monocytes # 0.7 K/mm3 (0.1-1.0); Monocytes % 3.5 % (1.7-9.3); Neutrophils # 19.8 K/mm3 (1.8-7.8); Neutrophils % 94.6 % (37.0-80.0); Platelet Count 199 K/mm3 (142-424); Red Blood Count 4.68 M/mm3 (4.60-6.20); Red Cell Distribution Width 14.5 % (11.5-17.5)
[2021-05-21 08:27] LABS: MANUAL DIFFERENTIAL MANUAL DIFFERENTIAL (MANUAL DIFF)
[2021-05-21 10:06] LABS: Lymphocytes % 5 % (10-50); Monocytes % 1 % (2-9); Neutrophils % 94 % (42-76); Platelet Estimate Normal; Total Cells Counted 100
[2021-05-21 10:07] LABS: RBC Morphology Normal
[2021-05-21 11:26] LABS: POC Glucose,Bedside 411 (70-110)
--- NOTE | 2021-05-21 11:29 | SW/DCPLANNER ---
Addendum entered by Sendy Charles 05/30/21 08:16: PATIENT REMAINS IN THE [facility] AND CONTINUES TO DECLINE.. DR JACOBS EXPRESSED THIS MORNING THAT HE WAS GOING TO CALL TO INFORM HER OF HIS CONDITION BEING GUARDED.. Addendum entered by Sendy Charles 05/29/21 08:01: PATIENT WAS PUT ON THE LIST AT [facility] FOR A MEDICAL TRANSFER PER FAMILY REQUEST.. HE REMAINS ON MECHANICAL VENTILATION WITH SEDATION. STAFF WILL FOLLOW UP WITH [facility] TO SEE IF A BED BECOMES AVAILABLE.. Original Note: SPOKE WITH DR JACOBS THIS MORNING AFTER ROUNDING AND HE STATED PATIENT IS DOING BETTER... HOPEFUL TO IMPROVED EVERYDAY.. WHEN PATIENT IS MEDICALLY READY FOR A DISPOSITION I WILL SET UP ANY HOME CARE THAT HE MAY NEED AT TIME OF DISPOSITION..PATIENT WAS AT HOME PRIOR TO HIS ADMISSION TO [facility].. PATIENT MAY BENEFIT FROM A SKILLED STAY WILL CHECK WITH DR JACOBS AND THERAPY TO SEE IF THAT IS WHAT HE NEEDS.
--- NOTE | 2021-05-21 13:42 | HMH.PULMPN ---
Internal Medicine - PN: Subj *Date: 05/21/21 *Time: 13:42 Interval history: No acute respiratory events overnight. Patient admits continued improvement in his symptoms. Exam - Constitutional Constitutional:: Present: no acute distress, comfortable - HENMT Exam HENMT: Present: normocephalic, atraumatic - Eye Exam Eyes:: Present: normal appearance both eyes and related structures - Neck Exam Neck:: Present: normal visual inspection - Respiratory Exam Respiratory:: Present: respiratory distress, rales. Absent: accessory muscle use - Cardiovascular Exam Cardiac:: Present: S1, S2 - GI Exam GI:: Present: soft - Skin Exam Skin: Present: warm - Neurological Exam Neurological: Present: alert, awake, normal cognition - Extremities Exam Extremities: Present: no cyanosis, no clubbing Assessment and Plan (1) Acute respiratory failure with hypoxia Status: Acute Category: Medical Code(s): J96.01 - Acute respiratory failure with hypoxia (2) Viral pneumonia Status: Acute Category: Medical Code(s): J12.9 - Viral pneumonia, unspecified (3) Long-term insulin use Status: Acute Category: Medical Code(s): Z79.4 - longterm (current) use of insulin (4) Diabetes mellitus with hyperglycemia Status: Acute Category: Medical Code(s): E11.65 - Type 2 diabetes mellitus with hyperglycemia (5) Essential hypertension Status: Acute Category: Medical Code(s): I10 - Essential (primary) hypertension (6) Status post aortic valve replacement Status: Acute Category: Surgical Code(s): Z95.2 - Presence of prosthetic heart valve (7) Former cigarette smoker Status: Acute Category: Social Hx Code(s): Z87.891 - Personal history of nicotine dependence (8) Pneumonia due to COVID-19 virus Status: Acute Category: Medical Code(s): U07.1 - COVID-19; J12.82 - Pneumonia due to coronavirus disease 2019 (9) COVID-19 virus infection Status: Acute Category: Medical Code(s): U07.1 - COVID-19 (10) Left leg DVT Status: Acute Category: Medical Code(s): I82.402 - Acute embolism and thrombosis of unspecified deep veins of left lower extremity (11) Acute kidney injury Status: Resolved Category: Medical Code(s): N17.9 - Acute kidney failure, unspecified (12) Infection due to Enterobacter aerogenes Status: Acute Category: Medical Code(s): A49.8 - Other bacterial infections of unspecified site - Assessment and plan all Dx Assessment and Plan for all problems:: #Acute hypoxic respiratory failure: #COVID-19 pneumonia: #History of DVT: # Recurrent DVT: 80-year-old male prior smoker, greater than [id number] smoking history. Not yet vaccinated. COVID-19 PCR positive. Flu panel negative CRP elevated at 54.7 on admission. On home anticoagulation apixaban 5 twice daily. DImer elevated at 0.74 ABG on admission showed metabolic acidosis with respiratory compensation with a PO2 of 76.4 and a PCO2 of 29.2 with a pH of 7.43 Chest x-ray on admission with bilateral diffuse groundglass opacities along with patchy consolidative lesion in the left lower lobe along with dense infiltrate in the right lower lobe. Sternal wires present. Cardiomegaly. Lower extremity Doppler positive for DVT. Patient has a history of DVT from June 2020 as per the patient and has been on anticoagulation since then. Initiated on Coumadin for treatment failure. Sputum growing Enterobacter aerogenes, which is sensitive to ceftriaxone. Nasal MRSA PCR negative. Blood cultures no growth 5 days Interval update: Respiratory status continued to improve. Patient methylprednisolone 125 every 6 hours for 3 days and was changed to 20 mg today. on 20 L 40% this morning. Will wean to nasal cannula as tolerated. Completed 5-day course of azithromycin. Leucocytosis relatively stable around 20-21. Plan: -Wean to nasal cannula as tolerated -Continue awake proning protocol -Continue cefepime to complete a total of 7-day cou
--- NOTE | 2021-05-21 14:30 | PC.NURSE ---
RESP CARE NOTE: Pt asleep on his left side after transferring back to bed with PT. SPO2 remained at 82% on 20L/40% FIO2. To adjust SPO2 to 90%, adjusted vapotherm to 40L/100% FIO2, and will begin to wean Vapotherm settings to previous settings.
[2021-05-21 17:04] LABS: POC Glucose,Bedside 217 (70-110)
[2021-05-21 22:27] LABS: POC Glucose,Bedside 204 (70-110)
[2021-05-22] VITALS (12 sets, daily range): BP systolic 128–156; BP diastolic 73–93; PULSE 71–100; RESP 20–36; TEMP 36.5–37.3; O2SAT 90–100; BMI 27.7
[2021-05-22 06:34] LABS: Basophils % 0.1 % (0.1-2.0); Hematocrit 44.8 % (42.0-52.0); Hemoglobin 14.5 g/dL (14.1-18.0); Lymphocytes # 0.4 K/mm3 (0.7-4.5); Lymphocytes % 1.7 % (10-50); Mean Corpuscular HGB Conc 32.3 g/dL (31.8-35.4); Mean Corpuscular Volume 95.9 fl (80-94); Mean Platelet Volume 9.2 fl (7.4-10.4); Monocytes # 0.6 K/mm3 (0.1-1.0); Monocytes % 2.8 % (1.7-9.3); Neutrophils # 22.1 K/mm3 (1.8-7.8); Neutrophils % 95.5 % (37.0-80.0); Platelet Count 184 K/mm3 (142-424); Red Blood Count 4.68 M/mm3 (4.60-6.20); Red Cell Distribution Width 14.4 % (11.5-17.5); White Blood Count 23.1 K/mm3 (4.8-10.8)
[2021-05-22 06:46] LABS: Prothrombin Time 39.8 seconds (10.1-12.5)
[2021-05-22 06:56] LABS: Alanine Aminotransferase 32 U/L (12-78); Albumin Level 2.9 g/dl (3.5-5.0); Albumin/Globulin Ratio 1.1 (1.1-1.8); Alkaline Phosphatase 130 U/L (38-126); Anion Gap 10.7 mEq/L (5-15); Aspartate Amino Transferase 44 U/L (17-59); Bilirubin,Total 0.9 mg/dl (0.2-1.3); Blood Urea Nitrogen 47 mg/dl (9-20); Calcium 7.9 mg/dl (8.4-10.2); Carbon Dioxide 24 mmol/L (22.0-30.0); Chloride 105 mmol/L (98-107); Creatinine Clearance Estimated 61 mL/min (50-200); Estimated Glomerular Filt Rate 59 ml/min (>60); GFR (African American) 71 ML/MIN (>60); Globulin 2.7 g/dL (1.3-3.2); Glucose 116 mg/dl (74-100); Potassium 3.7 mmoL/L (3.5-5.1); Sodium 136 mmol/L (136-145); Total Protein,Serum 5.6 g/dl (6.3-8.2)
[2021-05-22 07:01] LABS: C-Reactive Protein 28.5 mg/L (0-4)
[2021-05-22 07:06] LABS: MANUAL DIFFERENTIAL MANUAL DIFFERENTIAL (MANUAL DIFF)
--- NOTE | 2021-05-22 07:35 | HMH.ACPN2 ---
Internal Medicine - PN: Subj *Date: 05/22/21 *Time: 07:35 Interval history: Patient reports feeling weak and tired. He required increase in supplemental oxygen yesterday afternoon when he desatted to the 80s. Patient was placed back on max settings of HFNC and currently is weaned to 30 L with FiO2 of 80%. He denies any increase in shortness of breath or cough Exam Vital signs and Labs for Last 24 Hours: Temp Pulse Resp BP Pulse Ox 97.0 F L 79 20 138/84 99 05/21/21 20:00 05/22/21 06:29 05/21/21 20:00 05/21/21 20:00 05/22/21 06:29 Laboratory Results - last 24 hr 05/21/21 05:52: WBC 21.0 H*, RBC 4.68, Hgb 14.9, Hct 44.3, MCV 94.7 H, MCH 31.8 H, MCHC 33.6, RDW 14.5, Plt Count 199 D, MPV 9.0, Neut % (Auto) 94.6 H, Lymph % (Auto) 1.7 L, Gaines % (Auto) 3.5, Eos % (Auto) 0.0 L, Baso % (Auto) 0.1, Neut # (Auto) 19.8 H, Lymph # (Auto) 0.4 L, Gaines # (Auto) 0.7, Eos # (Auto) 0.0, Baso # (Auto) 0.0, Total Counted 100, Neutrophils % (Manual) 94 H, Lymphocytes % (Manual) 5 L, Monocytes % (Manual) 1 L, Platelet Estimate Normal, RBC Morphology Normal 05/21/21 11:16: POC Glucose 411 H* 05/21/21 15:48: POC Glucose 217 H 05/21/21 22:09: POC Glucose 204 H 05/22/21 05:34: WBC 23.1 H*, RBC 4.68, Hgb 14.5, Hct 44.8, MCV 95.9 H, MCH 31.0, MCHC 32.3, RDW 14.4, Plt Count 184, MPV 9.2, Neut % (Auto) 95.5 H, Lymph % (Auto) 1.7 L, Gaines % (Auto) 2.8, Eos % (Auto) 0.0 L, Baso % (Auto) 0.1, Neut # (Auto) 22.1 H, Lymph # (Auto) 0.4 L, Gaines # (Auto) 0.6, Eos # (Auto) 0.0, Baso # (Auto) 0.0 05/22/21 05:34: Sodium 136, Potassium 3.7, Chloride 105, Carbon Dioxide 24, Anion Gap 10.7, BUN 47 H, Creatinine 1.20, Estimated Creat Clear 61, Estimated GFR 59, Est GFR ( Amer) 71, Glucose 116 H, Calcium 7.9 L, Total Bilirubin 0.9, AST 44, ALT 32, Alkaline Phosphatase 130 H, C-Reactive Protein 28.5 H, Total Protein 5.6 L, Albumin 2.9 L, Globulin 2.7, Albumin/Globulin Ratio 1.1 05/22/21 05:34: PT 39.8 H, INR 3.90 H I & O for Last 24 hours: Intake & Output 05/19/21 05/20/21 05/21/21 05/22/21 11:59 11:59 11:59 11:59 Intake Total 1880 / 1880 940 / 940 1180 / 1180 760 / 760 Output Total 2049 / 2049 3050 / 3050 2150 / 2150 2750 / 2750 Balance -170 / -170 -2109 / -2109 -970 / -970 -1989 / Weight 190 lb 8 oz 189 lb 9 oz 184 lb 1.6 oz 187 lb 6.287 oz Narrative: Patient is in no distress. Affect is flat. Lungs are distant but no focal rales or rhonchi. Heart has a regular rate and rhythm. Abdomen is soft. Lower extremities have no significant edema Assessment and Plan (1) Acute respiratory failure with hypoxia Status: Acute Category: Medical Code(s): J96.01 - Acute respiratory failure with hypoxia (2) Viral pneumonia Status: Acute Category: Medical Code(s): J12.9 - Viral pneumonia, unspecified (3) Long-term insulin use Status: Acute Category: Medical Code(s): Z79.4 - intermediate frame tender (current) use of insulin (4) Diabetes mellitus with hyperglycemia Status: Acute Category: Medical Code(s): E11.65 - Type 2 diabetes mellitus with hyperglycemia (5) Essential hypertension Status: Acute Category: Medical Code(s): I10 - Essential (primary) hypertension (6) Status post aortic valve replacement Status: Acute Category: Surgical Code(s): Z95.2 - Presence of prosthetic heart valve (7) Former cigarette smoker Status: Acute Category: Social Hx Code(s): Z87.891 - Personal history of nicotine dependence (8) Pneumonia due to COVID-19 virus Status: Acute Category: Medical Code(s): U07.1 - COVID-19; J12.82 - Pneumonia due to coronavirus disease 2019 (9) COVID-19 virus infection Status: Acute Category: Medical Code(s): U07.1 - COVID-19 (10) Left leg DVT Status: Acute Category: Medical Code(s): I82.402 - Acute embolism and thrombosis of unspecified deep veins of left lower extremity (11) Acute kidney injury Status: Resolved Category: Medical Code(s): N17.9 - Acute kidney failure, unspeci
--- NOTE | 2021-05-22 07:43 | XR_ITS ---
FINAL REPORT CLINICAL HISTORY: Pneumonia, increased oxygen requirement COMPARISON: 05/20/2021 FINDINGS: SINGLE VIEW CHEST The heart is normal in size. The patient is status post median sternotomy. There are worsening pulmonary opacities consistent with worsening pneumonia. There is no pneumothorax. IMPRESSION: Worsening pneumonia. Reviewed, Interpreted and Dictated by Kalin Tovar III, MD Transcribed by Nanette Lopez Authenticated by Kalin Tovar III, MD on 05/22/2021 09:29:[address] [facility]
[2021-05-22 09:24] LABS: Lymphocytes % 4 % (10-50); Neutrophils % 96 % (42-76); Platelet Estimate Normal; Total Cells Counted 100
--- NOTE | 2021-05-22 09:24 | HMH.PULMPN ---
Internal Medicine - PN: Subj *Date: 05/22/21 *Time: 11:31 Interval history: Patient had acute decompensating event yesterday needing 40 L 100% high flow supplementation. He denies any worsening symptoms. Exam - Constitutional Constitutional:: Absent: no acute distress, comfortable - HENMT Exam HENMT: Present: normocephalic, atraumatic - Eye Exam Eyes:: Present: normal appearance both eyes and related structures - Neck Exam Neck:: Present: normal visual inspection - Respiratory Exam Respiratory:: Present: able to speak in complete sentences, respiratory distress, rales. Absent: wheezing - Cardiovascular Exam Cardiac:: Present: S1, S2 - GI Exam GI:: Present: soft, no hepatosplenomegaly - Skin Exam Skin: Present: warm, no rash, dry - Neurological Exam Neurological: Present: alert, awake, normal cognition - Extremities Exam Extremities: Present: no cyanosis, no clubbing, no edema Assessment and Plan (1) Acute respiratory failure with hypoxia Status: Acute Category: Medical Code(s): J96.01 - Acute respiratory failure with hypoxia (2) Viral pneumonia Status: Acute Category: Medical Code(s): J12.9 - Viral pneumonia, unspecified (3) Long-term insulin use Status: Acute Category: Medical Code(s): 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 (4) Diabetes mellitus with hyperglycemia Status: Acute Category: Medical Code(s): E11.65 - Type 2 diabetes mellitus with hyperglycemia (5) Essential hypertension Status: Acute Category: Medical Code(s): I10 - Essential (primary) hypertension (6) Status post aortic valve replacement Status: Acute Category: Surgical Code(s): Z95.2 - Presence of prosthetic heart valve (7) Former cigarette smoker Status: Acute Category: Social Hx Code(s): Z87.891 - Personal history of nicotine dependence (8) Pneumonia due to COVID-19 virus Status: Acute Category: Medical Code(s): U07.1 - COVID-19; J12.82 - Pneumonia due to coronavirus disease 2019 (9) COVID-19 virus infection Status: Acute Category: Medical Code(s): U07.1 - COVID-19 (10) Left leg DVT Status: Acute Category: Medical Code(s): I82.402 - Acute embolism and thrombosis of unspecified deep veins of left lower extremity (11) Acute kidney injury Status: Resolved Category: Medical Code(s): N17.9 - Acute kidney failure, unspecified (12) Infection due to Enterobacter aerogenes Status: Acute Category: Medical Code(s): A49.8 - Other bacterial infections of unspecified site - Assessment and plan all Dx Assessment and Plan for all problems:: #Acute hypoxic respiratory failure: #COVID-19 pneumonia: #History of DVT: # Recurrent DVT: 80-year-old male prior smoker, greater than [id number] smoking history. Not yet vaccinated. COVID-19 PCR positive. Flu panel negative CRP elevated at 54.7 on admission. On home anticoagulation apixaban 5 twice daily. DImer elevated at 0.74 ABG on admission showed metabolic acidosis with respiratory compensation with a PO2 of 76.4 and a PCO2 of 29.2 with a pH of 7.43 Chest x-ray on admission with bilateral diffuse groundglass opacities along with patchy consolidative lesion in the left lower lobe along with dense infiltrate in the right lower lobe. Sternal wires present. Cardiomegaly. Lower extremity Doppler positive for DVT. Patient has a history of DVT from June 2020 as per the patient and has been on anticoagulation since then. Initiated on Coumadin for treatment failure. Sputum growing Enterobacter aerogenes, which is sensitive to ceftriaxone. Nasal MRSA PCR negative. Blood cultures no growth 5 days Completed 5-day course of azithromycin. Patient received methylprednisolone 125 every 6 hours for 3 days and was changed to 20 mg on 05/21/21. Interval update: Chest x-ray appears to be worsening however can be 2/2 difference in technique and orientation. We'll closely monitor. Slight worsening leukocytosis. Acute deco
[2021-05-22 09:25] LABS: RBC Morphology Normal
[2021-05-22 11:22] LABS: POC Glucose,Bedside 142 (70-110)
--- NOTE | 2021-05-22 14:46 | PC.NURSE ---
RESP CARE NOTE: Oxygen weaned per protocol to keep SPO2 above 92%. Vapotherm now at 30LPM/50% FIO2.
[2021-05-22 21:27] LABS: POC Glucose,Bedside 308 (70-110)
[2021-05-23] VITALS (14 sets, daily range): BP systolic 132–177; BP diastolic 54–86; PULSE 70–105; RESP 14–25; TEMP 36.8–37.1; O2SAT 91–100; BMI 27.1
[2021-05-23 06:07] LABS: POC Glucose,Bedside 212 (70-110)
[2021-05-23 06:07] LABS: POC Glucose,Bedside 174 (70-110)
[2021-05-23 06:27] LABS: Basophils % 0.1 % (0.1-2.0); Eosinophils % 0.1 % (0.1-12.0); Hematocrit 43.1 % (42.0-52.0); Hemoglobin 14.2 g/dL (14.1-18.0); Lymphocytes # 0.3 K/mm3 (0.7-4.5); Lymphocytes % 1.2 % (10-50); Mean Corpuscular HGB Conc 32.9 g/dL (31.8-35.4); Mean Corpuscular Hemoglobin 31.7 pg (27.0-31.2); Mean Corpuscular Volume 96.4 fl (80-94); Mean Platelet Volume 9.1 fl (7.4-10.4); Monocytes # 0.7 K/mm3 (0.1-1.0); Monocytes % 2.5 % (1.7-9.3); Platelet Count 178 K/mm3 (142-424); Red Blood Count 4.48 M/mm3 (4.60-6.20); Red Cell Distribution Width 14.3 % (11.5-17.5); White Blood Count 28.1 K/mm3 (4.8-10.8)
[2021-05-23 06:33] LABS: Alanine Aminotransferase 32 U/L (12-78); Albumin Level 2.8 g/dl (3.5-5.0); Alkaline Phosphatase 150 U/L (38-126); Aspartate Amino Transferase 52 U/L (17-59); Bilirubin,Total 1.2 mg/dl (0.2-1.3); Blood Urea Nitrogen 51 mg/dl (9-20); Calcium 7.7 mg/dl (8.4-10.2); Carbon Dioxide 18 mmol/L (22.0-30.0); Chloride 107 mmol/L (98-107); Creatinine Clearance Estimated 67 mL/min (50-200); Estimated Glomerular Filt Rate 65 ml/min (>60); GFR (African American) 78 ML/MIN (>60); Globulin 2.8 g/dL (1.3-3.2); Glucose 143 mg/dl (74-100); Sodium 134 mmol/L (136-145); Total Protein,Serum 5.6 g/dl (6.3-8.2)
[2021-05-23 06:35] LABS: MANUAL DIFFERENTIAL MANUAL DIFFERENTIAL (MANUAL DIFF)
[2021-05-23 06:39] LABS: C-Reactive Protein 92.8 mg/L (0-4)
[2021-05-23 07:18] LABS: INR 4.14 (0.9-1.1); Prothrombin Time 42.1 seconds (10.1-12.5)
--- NOTE | 2021-05-23 07:25 | CA_ITS ---
APPROVED REPORT EXAM: Comprehensive 2D, Doppler, and color-flow Echocardiogram Tutoring Clinician: Kalpana Lovett RVT Ht: 5 ft 8 in Wt: 183lbs BSA: 1.97 BP: 138/84 mmHg Indications: TACHYCARDIA,COVID,AVR-BOVINE (?2017),HTN,SOA,SMOKER,DM,HLD TDS-PT FLAT ON BACK 2D Dimensions LVOT 2.29 cm (M/F) 1.5-2.5 LA Volume 38.70 mL LA Volume Index 19.74 mL/m2 (M/F) 16-34 M-Mode Dimensions RVDd 2.92 cm (0.9-2.6) LA Diam 3.43 cm (1.9-4.0) LVDd 4.15 cm (3.5-5.7) Ao Diam 3.16 cm (2.0-3.7) LVDs 2.92 cm (3.5-5.7) IVSd 1.65 cm (0.6-1.1) PWd 0.89 cm (0.6-1.1) EF (Teich) 57.10% FS 29.60% EDV (Teich) 76.40 mL ESV (Teich) 32.80 mL LV Diastology E Decel Time 210.00 (160-240 msec) E/A Ratio 0.6 MED E' 4.90 (< 7 cm/sec) E'/MED E' Ratio 18.14 (>14) LAT E' 7.10 (<10 cm/sec) E/LAT E' Ratio 12.52 (>14) Aortic Valve LVOT Max 110.00 (70-110 cm/s) LVOT VTI 23.22 cm AoV Peak Papo. 135.00 (50-130 cm/s) AO Peak GR. 7.30 mmHg AO Mean GR. 3.60 (<5 mmHg) AO VTI 21.53 (18-25 cm) JOSE (VTI) 4.44 (2.5-4.5 cm2) Mitral Valve MV E Max Papo. 89.00 (40-130 cm/s) MV A Velocity 141.00 (40-130 cm/s) E/A Ratio 0.63 MV Decel. Time 210.00 (160-240 ms) MV PHT 62.00 ms Pulmonary Valve PV Peak Velocity 81.00 (50-150 cm/s) Tricuspid Valve TR P. Velocity 191.00 cm/s RAP Estimate 10.00 mmHg RVSP 24.50 mmHg Left Ventricle Left atrium is mildly enlarged, left ventricle is normal size, mild concentric left ventricular hypertrophy, visually estimated ejection fraction 55% with no regional wall motion abnormality, grade 1 diastolic dysfunction seen without tissue Doppler evidence of raise left atrial pressure. Right Ventricle Right atrium and right ventricle are normal size and contractility. Aortic Valve There is bioprosthetic valve noted in the aortic position, the valve is well-seated, there is no aortic outflow obstruction or aortic insufficiency. Mitral Valve Mitral valve is grossly normal, there is trace mitral regurgitation. Tricuspid Valve Tricuspid valve grossly normal, there is trace tricuspid regurgitation, tricuspid regurgitation jet velocity is inadequate for calculation of the right ventricular systolic pressure. Pulmonic Valve Pulmonic valve is poorly visualized. Great Vessels Aortic root is normal size. Inferior vena cava is poorly visualized. Pericardium No significant pericardial effusion noted. Conclusion 1. Mildly enlarged left atrium, normal left ventricular size, mild concentric left ventricular hypertrophy, visually estimated ejection fraction 55% with no regional wall motion abnormality, grade 1 diastolic dysfunction seen without tissue Doppler evidence of raise left atrial pressure. 2. Normal functioning bioprosthetic valve in the aortic position without aortic outflow obstruction or aortic insufficiency. 3. Trace mitral and tricuspid regurgitation. 4. No significant pericardial effusion noted. 5. Inferior vena cava is poorly visualized. Electronically signed by : Tanmay Benitez MD 05/23/2021 13:19:28
--- NOTE | 2021-05-23 07:26 | HMH.ACPN2 ---
Internal Medicine - PN: Subj *Date: 05/23/21 *Time: 07:26 Interval history: No acute events over the last 24 hours. Patient denies worsening shortness of breath. Continues to state he does not feel good. Nursing staff raises concern over patient's confusion as he is once again removing his oxygen during the day. He recovers with reapplication of oxygen. Patient was oriented to person only for nursing staff overnight Exam Vital signs and Labs for Last 24 Hours: Temp Pulse Resp BP Pulse Ox 98.2 F 84 24 132/74 94 L 05/23/21 01:07 05/23/21 06:20 05/23/21 06:00 05/23/21 06:00 05/23/21 06:20 Laboratory Results - last 24 hr 05/22/21 05:34: Total Counted 100, Neutrophils % (Manual) 96 H, Lymphocytes % (Manual) 4 L, Platelet Estimate Normal, RBC Morphology Normal 05/22/21 06:17: POC Glucose 142 H 05/22/21 11:17: POC Glucose 174 H 05/22/21 16:27: POC Glucose 212 H 05/22/21 21:16: POC Glucose 308 H* 05/23/21 05:51: WBC 28.1 H*, RBC 4.48 L, Hgb 14.2, Hct 43.1, MCV 96.4 H, MCH 31.7 H, MCHC 32.9, RDW 14.3, Plt Count 178, MPV 9.1, Neut % (Auto) 96.0 H, Lymph % (Auto) 1.2 L, Cameron % (Auto) 2.5, Eos % (Auto) 0.1, Baso % (Auto) 0.1, Neut # (Auto) 27.0 H, Lymph # (Auto) 0.3 L, Cameron # (Auto) 0.7, Eos # (Auto) 0.0, Baso # (Auto) 0.0 05/23/21 05:51: Sodium 134 L, Potassium 4.0, Chloride 107, Carbon Dioxide 18 L, Anion Gap 13.0, BUN 51 H, Creatinine 1.10, Estimated Creat Clear 67, Estimated GFR 65, Est GFR ( Amer) 78, Glucose 143 H, Calcium 7.7 L, Total Bilirubin 1.2, AST 52, ALT 32, Alkaline Phosphatase 150 H, C-Reactive Protein 92.8 H D, Total Protein 5.6 L, Albumin 2.8 L, Globulin 2.8, Albumin/Globulin Ratio 1.0 L I & O for Last 24 hours: Intake & Output 05/20/21 05/21/21 05/22/21 05/23/21 11:59 11:59 11:59 11:59 Intake Total 940 / 940 1180 / 1180 880 / 880 440 / 440 Output Total 3050 / 3050 2150 / 2150 3050 / 3050 550 / 550 Balance -2110 / -2110 -970 / -970 -2170 / -2170 -110 / -110 Weight 189 lb 9 oz 184 lb 1.6 oz 187 lb 6.287 oz 183 lb 3.266 oz Narrative: Patient has noted increased respiratory rate on observation. He recalls he is in the hospital but does not recall location. He is oriented to person. Lung exam reveals rales in the left lateral lung, right lung base with diminished breath sounds in the bilateral bases posteriorly. Heart has a regular rate and rhythm. Abdomen is soft. Lower extremities have no edema. Telemetry monitoring shows pulse rate in the 90s with frequent PVCs or PACs. 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 (4) Diabetes mellitus with hyperglycemia Status: Acute Category: Medical Code(s): E11.65 - Type 2 diabetes mellitus with hyperglycemia (5) Essential hypertension Status: Acute Category: Medical Code(s): I10 - Essential (primary) hypertension (6) Status post aortic valve replacement Status: Acute Category: Surgical Code(s): Z95.2 - Presence of prosthetic heart valve (7) Former cigarette smoker Status: Acute Category: Social Hx Code(s): Z87.891 - Personal history of nicotine dependence (8) Pneumonia due to COVID-19 virus Status: Acute Category: Medical Code(s): U07.1 - COVID-19; J12.82 - Pneumonia due to coronavirus disease 2019 (9) COVID-19 virus infection Status: Acute Category: Medical Code(s): U07.1 - COVID-19 (10) Left leg DVT Status: Acute Category: Medical Code(s): I82.402 - Acute embolism and thrombosis of unspecified deep veins of left lower extremity (11) Acute kidney i
[2021-05-23 07:44] LABS: Magnesium 2.4 mg/dl (1.6-2.3)
[2021-05-23 07:52] LABS: POC Glucose,Bedside 139 (70-110)
[2021-05-23 07:58] LABS: Troponin I 0.01 ng/ml (0.00-0.034)
[2021-05-23 08:54] LABS: Lymphocytes % 2 % (10-50); Neutrophils % 98 % (42-76); Platelet Estimate Normal; RBC Morphology Normal; Total Cells Counted 100
--- NOTE | 2021-05-23 09:28 | XR_ITS ---
FINAL REPORT CLINICAL HISTORY: hypoxia COMPARISON: May 22, 2021 FINDINGS: SINGLE VIEW CHEST. The heart is normal in size. There has been median sternotomy. The mediastinum is unremarkable. There are worsening bilateral pulmonary opacities consistent with worsening pneumonia or edema. There is no pneumothorax. IMPRESSION: Worsening bilateral pneumonia or edema. Reviewed, Interpreted and Dictated by Kalin Tovar III, MD Transcribed by Sanjana Cedeno Authenticated by Kalin Tovar III, MD on 05/23/2021 10:32:19 AM [facility]
[2021-05-23 11:50] LABS: POC Glucose,Bedside 196 (70-110)
--- NOTE | 2021-05-23 13:28 | HMH.PULMPN ---
Internal Medicine - PN: Subj *Date: 05/23/21 *Time: 13:28 Interval history: Respiratory status stable with slight improvement.. Exam - Constitutional Constitutional:: Present: no acute distress, cooperative. Absent: comfortable - HENMT Exam HENMT: Present: normocephalic - Eye Exam Eyes:: Present: normal appearance both eyes and related structures - Neck Exam Neck:: Present: normal visual inspection - Respiratory Exam Respiratory:: Present: respiratory distress, rales. Absent: able to speak in complete sentences - Cardiovascular Exam Cardiac:: Present: S1, S2 - GI Exam GI:: Present: soft - Skin Exam Skin: Present: warm, no rash - Neurological Exam Neurological: Present: alert, awake, normal cognition - Extremities Exam Extremities: Present: no cyanosis, no clubbing, no edema Assessment and Plan (1) Acute respiratory failure with hypoxia Status: Acute Category: Medical Code(s): J96.01 - Acute respiratory failure with hypoxia (2) Viral pneumonia Status: Acute Category: Medical Code(s): J12.9 - Viral pneumonia, unspecified (3) Long-term insulin use Status: Acute Category: Medical Code(s): 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 (4) Diabetes mellitus with hyperglycemia Status: Acute Category: Medical Code(s): E11.65 - Type 2 diabetes mellitus with hyperglycemia (5) Essential hypertension Status: Acute Category: Medical Code(s): I10 - Essential (primary) hypertension (6) Status post aortic valve replacement Status: Acute Category: Surgical Code(s): Z95.2 - Presence of prosthetic heart valve (7) Former cigarette smoker Status: Acute Category: Social Hx Code(s): Z87.891 - Personal history of nicotine dependence (8) Pneumonia due to COVID-19 virus Status: Acute Category: Medical Code(s): U07.1 - COVID-19; J12.82 - Pneumonia due to coronavirus disease 2019 (9) COVID-19 virus infection Status: Acute Category: Medical Code(s): U07.1 - COVID-19 (10) Left leg DVT Status: Acute Category: Medical Code(s): I82.402 - Acute embolism and thrombosis of unspecified deep veins of left lower extremity (11) Acute kidney injury Status: Resolved Category: Medical Code(s): N17.9 - Acute kidney failure, unspecified (12) Infection due to Enterobacter aerogenes Status: Acute Category: Medical Code(s): A49.8 - Other bacterial infections of unspecified site - Assessment and plan all Dx Assessment and Plan for all problems:: #Acute hypoxic respiratory failure: #COVID-19 pneumonia: #History of DVT: # Recurrent DVT: 80-year-old male prior smoker, greater than [id number] smoking history. Not yet vaccinated. COVID-19 PCR positive. Flu panel negative CRP elevated at 54.7 on admission. On home anticoagulation apixaban 5 twice daily. DImer elevated at 0.74 ABG on admission showed metabolic acidosis with respiratory compensation with a PO2 of 76.4 and a PCO2 of 29.2 with a pH of 7.43 Chest x-ray on admission with bilateral diffuse groundglass opacities along with patchy consolidative lesion in the left lower lobe along with dense infiltrate in the right lower lobe. Sternal wires present. Cardiomegaly. Lower extremity Doppler positive for DVT. Patient has a history of DVT from June 2020 as per the patient and has been on anticoagulation since then. Initiated on Coumadin for treatment failure. Sputum growing Enterobacter aerogenes, which is sensitive to ceftriaxone. Nasal MRSA PCR negative. Blood cultures no growth 5 days Completed 5-day course of azithromycin. Patient received methylprednisolone 125 every 6 hours for 3 days and was changed to prednisone 60 mg on 05/21/21. Interval update: Chest x-ray showed worsening pulm infiltrates especially in the right lower lobe. Worsening leukocytosis today at 28.1. Afebrile. Improvement in his oxygen requirement from yesterday, this morning was weaned to 25 L 80%. Recommend not to wean flow at
--- NOTE | 2021-05-23 17:06 | PC.NURSE ---
pt instructed to cough and use sputum cup. sputum cup left at bedside.
[2021-05-23 20:47] LABS: POC Glucose,Bedside 308 (70-110)
[2021-05-23 20:47] LABS: POC Glucose,Bedside 273 (70-110)
[2021-05-24] VITALS (46 sets, daily range): BP systolic 63–171; BP diastolic 36–86; PULSE 79–112; RESP 20–30; TEMP 36.4–37.9; O2SAT 84–97; BMI 27.1
[2021-05-24 06:22] LABS: Alanine Aminotransferase 33 U/L (12-78); Albumin Level 2.7 g/dl (3.5-5.0); Alkaline Phosphatase 167 U/L (38-126); Anion Gap 11.9 mEq/L (5-15); Aspartate Amino Transferase 54 U/L (17-59); Bilirubin,Total 1.1 mg/dl (0.2-1.3); Blood Urea Nitrogen 59 mg/dl (9-20); Calcium 7.7 mg/dl (8.4-10.2); Carbon Dioxide 18 mmol/L (22.0-30.0); Chloride 104 mmol/L (98-107); Creatinine Clearance Estimated 60 mL/min (50-200); Estimated Glomerular Filt Rate 59 ml/min (>60); GFR (African American) 71 ML/MIN (>60); Globulin 2.8 g/dL (1.3-3.2); Glucose 257 mg/dl (74-100); Potassium 3.9 mmoL/L (3.5-5.1); Sodium 130 mmol/L (136-145); Total Protein,Serum 5.5 g/dl (6.3-8.2)
--- NOTE | 2021-05-24 06:23 | PC.NURSE ---
pt has remained on vapotherm t/o shift, has had to be reminded to leave O2 on, has removed it several times and drops to mid 80's, pt has been incontinent of urine this shift, with the occassional use of the urinal, pt reminded of importance of proning and IS, has attempted to lay prone one time this shift
[2021-05-24 06:27] LABS: C-Reactive Protein 110.3 mg/L (0-4)
--- NOTE | 2021-05-24 08:40 | HMH.ACPN2 ---
Internal Medicine - PN: Subj *Date: 05/24/21 *Time: 08:40 Interval history: Patient is more confused this morning. 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 He denies shortness of breath. O2 sats remain appropriate as long as patient is wearing oxygen which requires a frequent reminder. Exam Vital signs and Labs for Last 24 Hours: Temp Pulse Resp BP Pulse Ox 97.7 F 107 H 22 102/75 L 92 L 05/24/21 04:00 05/24/21 06:16 05/24/21 04:00 05/24/21 04:00 05/24/21 06:16 Laboratory Results - last 24 hr 05/23/21 05:51: Total Counted 100, Neutrophils % (Manual) 98 H, Lymphocytes % (Manual) 2 L, Platelet Estimate Normal, RBC Morphology Normal 05/23/21 11:17: POC Glucose 196 H 05/23/21 16:47: POC Glucose 308 H* 05/23/21 20:13: POC Glucose 273 H 05/24/21 05:48: Sodium 130 L, Potassium 3.9, Chloride 104, Carbon Dioxide 18 L, Anion Gap 11.9, BUN 59 H, Creatinine 1.20, Estimated Creat Clear 60, Estimated GFR 59, Est GFR ( Amer) 71, Glucose 257 H D, Calcium 7.7 L, Total Bilirubin 1.1, AST 54, ALT 33, Alkaline Phosphatase 167 H, C-Reactive Protein 110.3 H, Total Protein 5.5 L, Albumin 2.7 L, Globulin 2.8, Albumin/Globulin Ratio 1.0 L I & O for Last 24 hours: Intake & Output 05/21/21 05/22/21 05/23/21 05/24/21 11:59 11:59 11:59 11:59 Intake Total 1180 / 1180 880 / 880 680 / 680 740 / 740 Output Total 2150 / 2150 3050 / 3050 550 / 550 250 / 250 Balance -970 / -970 -2170 / -2170 130 / 130 490 / 490 Weight 184 lb 1.6 oz 187 lb 6.287 oz 183 lb 3.266 oz 183 lb 4 oz - Constitutional no acute distress - *Routine HEENT Exam Head: Present: normocephalic Eye: Present: EOMI, PERRL ENT: Present: mucous membranes moist - *Routine Neck Exam Present: supple. Absent: lymphadenopathy - *Routine Respiratory Exam Present: rales (Left lateral lung and right lung base) - *Routine Cardiovascular Exam Present: RRR - *Routine Abdominal Exam Present: soft, normoactive bowel sounds. 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 (4) Diabetes mellitus with hyperglycemia Status: Acute Category: Medical Code(s): E11.65 - Type 2 diabetes mellitus with hyperglycemia (5) Essential hypertension Status: Acute Category: Medical Code(s): I10 - Essential (primary) hypertension (6) Status post aortic valve replacement Status: Acute Category: Surgical Code(s): Z95.2 - Presence of prosthetic heart valve (7) Former cigarette smoker Status: Acute Category: Social Hx Code(s): Z87.891 - Personal history of nicotine dependence (8) Pneumonia due to COVID-19 virus Status: Acute Category: Medical Code(s): U07.1 - COVID-19; J12.82 - Pneumonia due to coronavirus disease 2019 (9) COVID-19 virus infection Status: Acute Category: Medical Code(s): U07.1 - COVID-19 (10) Left leg DVT Status: Acute Category: Medical Code(s): I82.402 - Acute embolism and thrombosis of unspecified deep veins of left lower extremity (11) Acute kidney injury Status: Resolved Category: Medical Code(s): N17.9 - Acute kidney failure, unspecified (12) Infection due to Enterobacter aerogenes Status: Acute Category: Medical Code(s): A49.8 - Other bacterial infections of unspecified site - Assessment and plan all Dx Assessment and Plan for all problems:: 1. Repeat chest x-ray performed yesterday showed worsening pneumonia. In discussion with pulmonary service patient's antibiotics were changed to meropenem and blood and sputum cultures will be recollected.. 2. Patient echocardiogram shows some diastolic dysfunction but normal LV function 3. Patient will
--- NOTE | 2021-05-24 12:28 | XR_ITS ---
PROCEDURE INFORMATION: Exam: XR Chest Exam date and time: 05/24/2021 12:28 PM Age: 80 years old Clinical indication: Shortness of breath; Additional info: Change in resspiratory status TECHNIQUE: Imaging protocol: XR of the chest. Views: 1 view. COMPARISON: CR XR CHEST PORTABLE 05/23/2021 9:52 AM FINDINGS: Lungs: Patchy bilateral opacities consistent with multifocal pneumonia including COVID-19. Pleural spaces: Unremarkable. No pleural effusion. No pneumothorax. Heart/Mediastinum: Stable cardiac silhouette Bones/joints: Median sternotomy IMPRESSION: Patchy bilateral opacities consistent with multifocal pneumonia including COVID-19.
[2021-05-24 12:38] LABS: ABG Base Excess -4.7 mmol/L (-2.4-2.3); ABG HCO3 18.9 mmhg (22.0-26.0); ABG Oxygen Saturation 74 % (90-100); ABG PCO2 26.2 mmhg (35.0-45.0); ABG PH 7.48 mmol/L (7.35-7.45); ABG TCO2 19.7 mmhg (23-27)
[2021-05-24 12:39] LABS: Basophils # 0.1 K/mm3 (0-0.2); Basophils % 0.4 % (0.1-2.0); Eosinophils # 0.1 K/mm3 (0.0-0.4); Eosinophils % 0.2 % (0.1-12.0); Hematocrit 43.3 % (42.0-52.0); Hemoglobin 14.1 g/dL (14.1-18.0); Lymphocytes # 0.3 K/mm3 (0.7-4.5); Lymphocytes % 1.2 % (10-50); Mean Corpuscular HGB Conc 32.6 g/dL (31.8-35.4); Mean Corpuscular Hemoglobin 31.7 pg (27.0-31.2); Mean Corpuscular Volume 97.2 fl (80-94); Mean Platelet Volume 9.4 fl (7.4-10.4); Monocytes # 0.7 K/mm3 (0.1-1.0); Monocytes % 2.3 % (1.7-9.3); Neutrophils # 27.8 K/mm3 (1.8-7.8); Platelet Count 186 K/mm3 (142-424); Red Blood Count 4.46 M/mm3 (4.60-6.20); Red Cell Distribution Width 14.3 % (11.5-17.5)
[2021-05-24 12:42] LABS: POC Glucose,Bedside 274 (70-110)
[2021-05-24 12:42] LABS: POC Glucose,Bedside 128 (70-110)
[2021-05-24 12:49] LABS: INR 3.14 (0.9-1.1); Prothrombin Time 32.6 seconds (10.1-12.5)
--- NOTE | 2021-05-24 12:53 | PC.NURSE ---
Vapotherm increased 40L 100% per Dr Jasso.
[2021-05-24 12:59] LABS: MANUAL DIFFERENTIAL MANUAL DIFFERENTIAL (MANUAL DIFF)
[2021-05-24 13:26] LABS: Allen's Test ACCEPTABLE; Oxygen 60 %; Source R RADIAL
[2021-05-24 13:27] LABS: ABG PO2 37.5 mmhg (80-100)
--- NOTE | 2021-05-24 13:47 | PC.NURSE ---
HARIS Vaughn notified of intubation and ER MD not being available at this time.
--- NOTE | 2021-05-24 14:17 | HMH.GSCON ---
*Admission Date: 05/13/21 *Reason for consult:: Central line placement *History of present illness: Patient is a 80-year-old male, prior smoker, from [place], [place] who was admitted on 05/12/2020 with shortness of air secondary to COVID pneumonia. He has a history of previous aortic valve replacement. He has been diagnosed with DVT during this hospitalization and has been on chronic warfarin anticoagulation therapy. He has had tenuous intravenous access and today has had respiratory deterioration requiring intubation. Surgery was contacted for central line placement. Patient had lost intravenous access at the time of planned intubation and anesthesia did place a left external jugular vein peripheral IV. Review of Systems - Review of Systems Review of systems:: unable to obtain - *Neurologic Reports confusion, Reports weakness, Denies abnormal hearing [facility] History I have reviewed the patient's past medical history: Yes Medical History: Reports:: Diabetes Mellitus Type 2, Hypertension *Have you ever received a pneumonia vaccine?: Yes *Have you received a flu vaccine this season?: No Other Surgeries: Yes: Other Valve Replacement (Aortic) - *Social History Last grade of school completed: High school graduate Smoking Status: Former smoker Tobacco Type: cigarettes Alcohol Intake: never *Occupational Status:: retired, other *Travel in the last 8 weeks: None Family Hx:: Non-contributory Meds Home Medications Medication Instructions Recorded Confirmed Type Apixaban [Eliquis] 5 mg PO BID 05/12/21 05/12/21 History Cholecalciferol (Vitamin D3) 50,000 unit PO WEEKLY 05/12/21 05/13/21 History [Vitamin D3 50,000 unit Cap] Insulin Regular, Human [Novolin R 20 unit SQ BIDWMEAL PRN 05/12/21 05/13/21 History Flexpen] Simvastatin 20 mg PO DAILY 05/12/21 05/12/21 History carvediloL [Carvedilol 6.25mg Tab] 6.25 mg PO BID 05/12/21 05/12/21 History hydroCHLOROthiazide [HCTZ 25mg 12.5 mg PO DAILY 05/12/21 05/13/21 History tab] Fluticasone Propionate 1 spray NOSTRIL-B DAILY 05/13/21 05/13/21 History Insulin NPH Human Isophane 0 unit SQ DIRECTED 05/13/21 05/13/21 History [Novolin N] Losartan Potassium [Cozaar 25mg 25 mg PO DAILY 05/13/21 05/13/21 History Tablets] Allergies Allergy/AdvReac Type Severity Reaction Status Date / Time warfarin Allergy Hives Verified 05/14/21 13:04 Exam Vital signs and Labs for Last 24 Hours: Temp Pulse Resp BP Pulse Ox 97.5 F L 101 H 30 H 134/73 86 L 05/24/21 08:00 05/24/21 12:52 05/24/21 08:00 05/24/21 08:00 05/24/21 12:52 Laboratory Results - last 24 hr 05/23/21 16:47: POC Glucose 308 H* 05/23/21 20:13: POC Glucose 273 H 05/24/21 05:37: POC Glucose 274 H 05/24/21 05:48: Sodium 130 L, Potassium 3.9, Chloride 104, Carbon Dioxide 18 L, Anion Gap 11.9, BUN 59 H, Creatinine 1.20, Estimated Creat Clear 60, Estimated GFR 59, Est GFR ( Amer) 71, Glucose 257 H D, Calcium 7.7 L, Total Bilirubin 1.1, AST 54, ALT 33, Alkaline Phosphatase 167 H, C-Reactive Protein 110.3 H, Total Protein 5.5 L, Albumin 2.7 L, Globulin 2.8, Albumin/Globulin Ratio 1.0 L 05/24/21 12:20: WBC 29.0 H*, RBC 4.46 L, Hgb 14.1, Hct 43.3, MCV 97.2 H, MCH 31.7 H, MCHC 32.6, RDW 14.3, Plt Count 186, MPV 9.4, Neut % (Auto) 96.0 H, Lymph % (Auto) 1.2 L, Dewey % (Auto) 2.3, Eos % (Auto) 0.2, Baso % (Auto) 0.4, Neut # (Auto) 27.8 H, Lymph # (Auto) 0.3 L, Dewey # (Auto) 0.7, Eos # (Auto) 0.1, Baso # (Auto) 0.1 05/24/21 12:20: PT 32.6 H, INR 3.14 H 05/24/21 12:28: Specimen Source R radial, O2 % 60, ABG pH 7.48 H, ABG pCO2 26.2 L, ABG pO2 37.5 L, ABG HCO3 18.9 L, ABG Total CO2 19.7 L, ABG O2 Saturation 74 L*, ABG Base Excess -4.7 L, Kenyon Test Acceptable 05/24/21 12:32: POC Glucose 128 H I & O for Last 24 hours: Intake & Output 05/22/21 05/23/21 05/24/21 05/25/21 11:59 11:59 11:59 11:59 Intake Total 880 / 880 680 / 680 800 / 800 Output Total 3050 / 3050 550 / 550 250 / 250 Balance -2170 / -2170 1
--- NOTE | 2021-05-24 14:45 | HMH.PROC ---
[facility] Procedure Note Procedure Note:: Consulted for Tracheal Intubation d/t Covid 19/Respiratory Distress. Discussed plan of care with pt and he verbalized understanding. See nursing notes for vital signs. Peripheral IV access obtained in left external jugular vein. Lidocaine 50 mg, Propofol 100 mg, Succinylcholine 100 mg, DVL x1 with Morrow 2 blade, Grade 1 view, 8.0 ETT secured at 20 cm on the right side, + ETCO2, +BBS. Propofol gtt. then started.
--- NOTE | 2021-05-24 14:56 | XR_ITS ---
PROCEDURE INFORMATION: Exam: XR Chest Exam date and time: 05/24/2021 2:56 PM Age: 80 years old Clinical indication: Shortness of breath; Additional info: Central line placement TECHNIQUE: Imaging protocol: XR of the chest. Views: 1 view. COMPARISON: CR XR CHEST PORTABLE 05/24/2021 12:39 PM FINDINGS: Tubes, catheters and devices: A left peripherally inserted central venous catheter lies with its tip in the superior vena cava. Endotracheal tube terminates 3 cm above the leny in good position. Lungs: Patchy bilateral opacities may represent multifocal pneumonia including COVID-19. Pleural spaces: Unremarkable. No pleural effusion. No pneumothorax. Heart/Mediastinum: Unremarkable. No cardiomegaly. Bones/joints: Unremarkable. IMPRESSION: 1. Endotracheal tube terminates 3 cm above the leny in good position. 2. Patchy bilateral opacities may represent multifocal pneumonia including COVID-19.
--- NOTE | 2021-05-24 15:03 | P.OP_ITS ---
Date of procedure: 05/24/21 Pre-op Diagnosis:: Need for central venous access Post-op Diagnosis:: Same Procedure performed:: Placement of 7 [place]amb[place] triple-lumen catheter left subclavian vein Surgeon:: Kalin Chavez MD Anesthesia: local Estimated blood loss (mL): 10 Clinical Note:: Patient is a 80-year-old male, prior smoker, from [place], [place] who was admitted on 05/12/2020 with shortness of air secondary to COVID pneumonia. He has a history of previous aortic valve replacement. He has been diagnosed with DVT during this hospitalization and has been on warfarin anticoagulation therapy. He has had tenuous intravenous access and today has had respiratory deterioration requiring intubation. Surgery was contacted for central line placement. Patient had lost intravenous access at the time of planned intubation and anesthesia did place a left external jugular vein peripheral IV. Operative findings:: Seemingly normal anatomy Operative note:: Patient was positioned in Trendelenburg position. Left neck and chest were prepped and draped in the standard surgical fashion. Local anesthetic was infiltrated inferior to the left clavicle. 18-gauge needle was inserted manipulating the needle posterior to the clavicle. Left subclavian vein was cannulated with good return of venous blood. Guidewire was inserted. Small incision was made at the guidewire insertion site. Subcutaneous tissues were dilated. 7 [place]ambian triple-lumen catheter was threaded over the guidewire using Seldinger technique. It was secured to the skin at approximately the 15 cm britany with silk suture. All ports aspirated and flushed without difficulty. Clean dry sterile dressing was applied. Chest x-ray pending at the time of this dictation. Condition: critical Disposition: no change Complications:: None immediate
[2021-05-24 16:24] LABS: ABG Base Excess -7.2 mmol/L (-2.4-2.3); ABG HCO3 20.9 mmhg (22.0-26.0); ABG Oxygen Saturation 97 % (90-100); ABG PO2 115.7 mmhg (80-100); ABG TCO2 22.5 mmhg (23-27)
[2021-05-24 16:31] LABS: Allen's Test ACCEPTABLE; Oxygen 100 %; PEEP 14; Source R RADIAL; Tidal Volume 440; Vent Rate 22
[2021-05-24 16:32] LABS: ABG PCO2 54.5 mmhg (35.0-45.0)
[2021-05-24 18:27] LABS: POC Glucose,Bedside 308 (70-110)
--- NOTE | 2021-05-24 19:56 | PC.NURSE ---
1420- R HARIS Lynn @ bedside 1422-PIV access lost 1430- 20g placed in left EJ by Carrillo Lynn, HARIS 1432- 100mg of propofol, 100mg of succinylcholine pushed by CHEMIST HELPER 1435- Pt intubated w/ 8.0 ETT measuring 20 at the lip 1436- bilat breath sounds confirmed, color change noted to co2 detector Post intubation vitals: RUE 94/52 LUE 106/50 rectal temp of 100.2 Heel protectors placed on pt, heels floated, BUE floated. 16fr haddad placed w/ urometer. 18fr OG place 66 @ lip Current vent settings: FiO2 100%, TV 440, Rate of 22, and PEEP of 14 Current gtt settings : propofol 30mcg/min and fentanyl 50 mcg/min
[2021-05-24 20:15] LABS: Lymphocytes % 3 % (10-50); Monocytes % 1 % (2-9); Neutrophils % 88 % (42-76); Platelet Estimate Normal; RBC Morphology Normal; Total Cells Counted 100
[2021-05-25] VITALS (30 sets, daily range): BP systolic 94–128; BP diastolic 45–64; PULSE 69–97; RESP 22–26; TEMP 36.8–38.5; O2SAT 92–98; BMI 27.0
--- NOTE | 2021-05-25 06:00 | XR_ITS ---
PROCEDURE INFORMATION: Exam: XR Chest Exam date and time: 05/25/2021 6:00 AM Age: 80 years old Clinical indication: Device placement; Ett placement (vent status); Additional info: Intubated PT TECHNIQUE: Imaging protocol: XR of the chest. Views: 1 view. COMPARISON: CR XR CHEST PORTABLE 05/24/2021 3:17 PM FINDINGS: Tubes, catheters and devices: Endotracheal tube tip is seen with the tip approximately 3 cm from the leny. Enteric tube extends into the left upper quadrant, likely in the stomach. Left-sided central venous catheter is seen with tip at the level of the upper SVC. Lungs: Persistent patchy bilateral airspace disease and consolidation similar to the prior exam. Pleural spaces: No pleural effusion. No pneumothorax. Heart/Mediastinum: No acute findings or cardiomegaly. Bones/joints: Status post sternotomy. IMPRESSION: 1. Endotracheal tube tip approximately 3 cm from the leny. 2. Interval placement of enteric tube with tip in the left upper quadrant likely the stomach. 3. Bilateral patchy airspace disease consistent multifocal pneumonia similar to the prior exam.
[2021-05-25 06:17] LABS: POC Glucose,Bedside 196 (70-110)
[2021-05-25 06:40] LABS: POC Glucose,Bedside 333 (70-110)
--- NOTE | 2021-05-25 07:08 | PC.NURSE ---
propofol currently infusing at 30 fentanyl at 50 levo at 10 610 mL of urine out this shift
[2021-05-25 08:00] LABS: Lactate Arterial 1.5 mmol/L (0.4-2.0)
[2021-05-25 08:03] LABS: ABG Base Excess -6.8 mmol/L (-2.4-2.3); ABG Oxygen Saturation 100 % (90-100); ABG PH 7.22 mmol/L (7.35-7.45); ABG PO2 242.6 mmhg (80-100); ABG TCO2 22.6 mmhg (23-27)
[2021-05-25 08:08] LABS: Allen's Test Patient Unable; Oxygen 100 %; PEEP 14; Source Right Radial; Tidal Volume 440; Vent Rate 22
[2021-05-25 08:31] LABS: Basophils # 0.1 K/mm3 (0-0.2); Basophils % 0.2 % (0.1-2.0); Eosinophils # 0.3 K/mm3 (0.0-0.4); Eosinophils % 1.1 % (0.1-12.0); Hematocrit 39.1 % (42.0-52.0); Lymphocytes # 0.5 K/mm3 (0.7-4.5); Lymphocytes % 1.7 % (10-50); Mean Corpuscular HGB Conc 32.2 g/dL (31.8-35.4); Mean Corpuscular Hemoglobin 31.7 pg (27.0-31.2); Mean Corpuscular Volume 98.5 fl (80-94); Mean Platelet Volume 8.4 fl (7.4-10.4); Monocytes # 0.8 K/mm3 (0.1-1.0); Monocytes % 2.7 % (1.7-9.3); Neutrophils # 28.5 K/mm3 (1.8-7.8); Neutrophils % 94.2 % (37.0-80.0); Platelet Count 219 K/mm3 (142-424); Red Blood Count 3.97 M/mm3 (4.60-6.20); Red Cell Distribution Width 14.4 % (11.5-17.5); White Blood Count 30.2 K/mm3 (4.8-10.8)
[2021-05-25 08:32] LABS: MANUAL DIFFERENTIAL MANUAL DIFFERENTIAL (MANUAL DIFF)
[2021-05-25 08:34] LABS: Chloride 109 mmol/L (98-107); Sodium 138 mmol/L (136-145)
[2021-05-25 08:35] LABS: Potassium 4.6 mmoL/L (3.5-5.1)
[2021-05-25 08:37] LABS: Alanine Aminotransferase 23 U/L (12-78); Anion Gap 7.6 mEq/L (5-15); Aspartate Amino Transferase 39 U/L (17-59); Blood Urea Nitrogen 68 mg/dl (9-20); Carbon Dioxide 26 mmol/L (22.0-30.0); Creatinine Clearance Estimated 38 mL/min (50-200); Estimated Glomerular Filt Rate 34 ml/min (>60); GFR (African American) 42 ML/MIN (>60)
[2021-05-25 08:38] LABS: Albumin Level 2.4 g/dl (3.5-5.0); Albumin/Globulin Ratio 0.9 (1.1-1.8); Alkaline Phosphatase 166 U/L (38-126); Bilirubin,Total 0.5 mg/dl (0.2-1.3); Calcium 7.1 mg/dl (8.4-10.2); Globulin 2.7 g/dL (1.3-3.2); Glucose 204 mg/dl (74-100); Total Protein,Serum 5.1 g/dl (6.3-8.2)
[2021-05-25 08:40] LABS: Hemoglobin 12.8 g/dL (14.1-18.0)
[2021-05-25 08:53] LABS: Prothrombin Time 52.3 seconds (10.1-12.5)
[2021-05-25 08:54] LABS: INR 5.23 (0.9-1.1)
--- NOTE | 2021-05-25 09:10 | HMH.ACPN2 ---
Internal Medicine - PN: Subj *Date: 05/25/21 *Time: 09:10 Interval history: Patient declined yesterday and ended up intubated. Patient is now sedated intubated with central line placed and NG tube placed. Since intubation patient's blood pressures were soft and ultimately required initiation of Levophed this morning which has improved blood pressures. Exam Vital signs and Labs for Last 24 Hours: Temp Pulse Resp BP Pulse Ox 98.3 F 79 24 128/64 98 05/25/21 06:00 05/25/21 08:00 05/25/21 08:00 05/25/21 08:00 05/25/21 08:00 Laboratory Results - last 24 hr 05/24/21 05:37: POC Glucose 274 H 05/24/21 12:20: WBC 29.0 H*, RBC 4.46 L, Hgb 14.1, Hct 43.3, MCV 97.2 H, MCH 31.7 H, MCHC 32.6, RDW 14.3, Plt Count 186, MPV 9.4, Neut % (Auto) 96.0 H, Lymph % (Auto) 1.2 L, Dodge % (Auto) 2.3, Eos % (Auto) 0.2, Baso % (Auto) 0.4, Neut # (Auto) 27.8 H, Lymph # (Auto) 0.3 L, Dodge # (Auto) 0.7, Eos # (Auto) 0.1, Baso # (Auto) 0.1, Total Counted 100, Neutrophils % (Manual) 88 H, Band Neutrophils % 8.0, Lymphocytes % (Manual) 3 L, Monocytes % (Manual) 1 L, Platelet Estimate Normal, RBC Morphology Normal 05/24/21 12:20: PT 32.6 H, INR 3.14 H 05/24/21 12:28: Specimen Source R radial, O2 % 60, ABG pH 7.48 H, ABG pCO2 26.2 L, ABG pO2 37.5 L, ABG HCO3 18.9 L, ABG Total CO2 19.7 L, ABG O2 Saturation 74 L*, ABG Base Excess -4.7 L, Kenyon Test Acceptable 05/24/21 12:32: POC Glucose 128 H 05/24/21 16:21: Specimen Source R radial, O2 % 100, ABG pH 7.20 L*, ABG pCO2 54.5 H, ABG pO2 115.7 H, ABG HCO3 20.9 L, ABG Total CO2 22.5 L, ABG O2 Saturation 97, ABG Base Excess -7.2 L, Kenyon Test Acceptable, Vent Rate 22, Tidal Volume 440, PEEP 14 05/24/21 18:19: POC Glucose 308 H* 05/24/21 20:27: POC Glucose 333 H* 05/25/21 05:25: POC Glucose 196 H 05/25/21 07:00: Specimen Source Right radial, O2 % 100, ABG pH 7.22 L*, ABG pCO2 53.0 H, ABG pO2 242.6 H, ABG HCO3 21.0 L, ABG Total CO2 22.6 L, ABG O2 Saturation 100, ABG Base Excess -6.8 L, Kenyon Test Patient unable, Vent Rate 22, Tidal Volume 440, PEEP 14 05/25/21 07:57: ABG Lactate 1.5 05/25/21 08:20: WBC 30.2 H*, RBC 3.97 L, Hgb 12.8 L, Hct 39.1 L, MCV 98.5 H, MCH 31.7 H, MCHC 32.2, RDW 14.4, Plt Count 219, MPV 8.4, Neut % (Auto) 94.2 H, Lymph % (Auto) 1.7 L, Dodge % (Auto) 2.7, Eos % (Auto) 1.1, Baso % (Auto) 0.2, Neut # (Auto) 28.5 H, Lymph # (Auto) 0.5 L, Dodge # (Auto) 0.8, Eos # (Auto) 0.3, Baso # (Auto) 0.1 05/25/21 08:20: Sodium 138, Potassium 4.6, Chloride 109 H, Carbon Dioxide 26, Anion Gap 7.6, BUN 68 H, Creatinine 1.90 H D, Estimated Creat Clear 38, Estimated GFR 34 L, Est GFR ( Amer) 42 L D, Glucose 204 H, Calcium 7.1 L, Total Bilirubin 0.5, AST 39 D, ALT 23 D, Alkaline Phosphatase 166 H, Total Protein 5.1 L, Albumin 2.4 L D, Globulin 2.7, Albumin/Globulin Ratio 0.9 L 05/25/21 08:20: PT 52.3 H, INR 5.23 H I & O for Last 24 hours: Intake & Output 05/22/21 05/23/21 05/24/21 05/25/21 11:59 11:59 11:59 11:59 Intake Total 880 / 880 680 / 680 800 / 800 714.125 / 714.125 Output Total 3050 / 3050 550 / 550 250 / 250 685 / 685 Balance -2170 / -2170 130 / 130 550 / 550 29.125 / 29.125 Weight 187 lb 6.287 oz 183 lb 3.266 oz 183 lb 4 oz 182 lb 12.211 oz Microbiology Reports for the Last 24 Hours: Microbiology 05/24/21 14:52 Sputum - Endotracheal Tube Aspirate Gram Stain - Final Narrative: Patient is sedated and appears comfortable. He is breathing with the vent. Lungs have improved aeration of the bases and rales that were present in the right base and left lateral lung are less audible this morning. Heart has a regular rate and rhythm. Abdomen is soft. Extremities are warm and without edema. Chest x-ray this morning shows persistence of multifocal pneumonia with lines and tubes appropriately positioned Echocardiogram from Wednesday revealed an EF of 55% with grade 1 diastolic dysfunction but no evidence of raised left atrial pressure. White blood cell count has risen slightly to 30,000. A
[2021-05-25 09:58] LABS: Lymphocytes % 2 % (10-50); Monocytes % 4 % (2-9); Neutrophils % 88 % (42-76); Total Cells Counted 100
[2021-05-25 09:59] LABS: Platelet Estimate Normal; RBC Morphology Normal
--- NOTE | 2021-05-25 11:11 | DIET.NUTRFU ---
RD consulted secondary to intubation with NG tube in place. When appropriate start Pulmocare at 20ml/hr with goal rate of 55ml/hr providing 1900kcal/80gm protein and 1000ml free water, flush with 165ml q4H providing additional 990ml/day providing total fluid of 1900ml/day. Along with some medications provided with Nacl. Propofol providing 110kcal. Labs reviewed: BUN and CR elevated and glucose also elevated, insulin in place. Pulmocare is carb steady.
[2021-05-25 17:42] LABS: POC Glucose,Bedside 201 (70-110)
[2021-05-25 20:14] LABS: POC Glucose,Bedside 204 (70-110)
[2021-05-25 20:14] LABS: POC Glucose,Bedside 191 (70-110)
[2021-05-26] VITALS (43 sets, daily range): BP systolic 80–130; BP diastolic 41–63; PULSE 70–95; RESP 24–29; TEMP 36.7–37.8; O2SAT 91–97; BMI 26.9
--- NOTE | 2021-05-26 06:00 | XR_ITS ---
PROCEDURE INFORMATION: Exam: XR Chest Exam date and time: 05/26/2021 6:00 AM Age: 80 years old Clinical indication: Device placement; Ett placement (vent status); Additional info: Ett and og placement TECHNIQUE: Imaging protocol: XR of the chest. Views: 1 view. COMPARISON: CR XR CHEST PORTABLE 05/25/2021 5:41 AM FINDINGS: Tubes, catheters and devices: Endotracheal tube terminates approximately 4 cm above the leny. NG tube passes into stomach. Left subclavian central venous catheter terminates in the distal SVC. Lungs: Similar patchy bilateral airspace opacities. Pleural spaces: Unremarkable. No pleural effusion. No pneumothorax. Heart/Mediastinum: Changes of prior CABG. Bones/joints: Unremarkable. IMPRESSION: 1. Endotracheal tube terminates approximately 4 cm above the leny. 2. Similar patchy bilateral airspace opacities, suggestive of multilobar pneumonia.
[2021-05-26 06:27] LABS: Basophils % 0.1 % (0.1-2.0); Eosinophils # 0.3 K/mm3 (0.0-0.4); Eosinophils % 1.1 % (0.1-12.0); Hematocrit 37.3 % (42.0-52.0); Hemoglobin 12.1 g/dL (14.1-18.0); Lymphocytes # 0.5 K/mm3 (0.7-4.5); Lymphocytes % 2.1 % (10-50); Mean Corpuscular HGB Conc 32.5 g/dL (31.8-35.4); Mean Corpuscular Hemoglobin 32.1 pg (27.0-31.2); Mean Corpuscular Volume 98.7 fl (80-94); Mean Platelet Volume 8.4 fl (7.4-10.4); Monocytes # 0.6 K/mm3 (0.1-1.0); Monocytes % 2.4 % (1.7-9.3); Neutrophils # 23.5 K/mm3 (1.8-7.8); Neutrophils % 94.2 % (37.0-80.0); Platelet Count 179 K/mm3 (142-424); Red Blood Count 3.78 M/mm3 (4.60-6.20); Red Cell Distribution Width 14.5 % (11.5-17.5)
[2021-05-26 06:29] LABS: Alanine Aminotransferase 18 U/L (12-78); Albumin Level 2.2 g/dl (3.5-5.0); Albumin/Globulin Ratio 0.8 (1.1-1.8); Alkaline Phosphatase 152 U/L (38-126); Anion Gap 11.6 mEq/L (5-15); Aspartate Amino Transferase 36 U/L (17-59); Bilirubin,Total 0.4 mg/dl (0.2-1.3); Blood Urea Nitrogen 75 mg/dl (9-20); Calcium 7.5 mg/dl (8.4-10.2); Carbon Dioxide 23 mmol/L (22.0-30.0); Chloride 108 mmol/L (98-107); Creatinine Clearance Estimated 32 mL/min (50-200); Estimated Glomerular Filt Rate 29 ml/min (>60); GFR (African American) 35 ML/MIN (>60); Globulin 2.7 g/dL (1.3-3.2); Glucose 195 mg/dl (74-100); Potassium 4.6 mmoL/L (3.5-5.1); Sodium 138 mmol/L (136-145); Total Protein,Serum 4.9 g/dl (6.3-8.2)
--- NOTE | 2021-05-26 06:29 | PC.NURSE ---
No acute changes this shift. Pt remains on Levophed gtt. Currently infusing @ 10 mcg/min. Pt has been febrile this shift. Medicated per jul. Pt has tolerated vent. Settings are as follows: AC, FiO2 70, TV 440, R 24, PEEP 14. Pt sedated with Propofol @ 30 mcg/kg/min. Fentanyl @ 50 mcg/hr. Pulmocare titrated to 30 ml/hr. Residuals no higher than 10 ml. F/C draining to bedside with dark, yellow urine. Pt turned and repositioned. Oral care provided. Heels floated. No other concerns. Will continue to monitor.
[2021-05-26 06:40] LABS: MANUAL DIFFERENTIAL MANUAL DIFFERENTIAL (MANUAL DIFF)
[2021-05-26 06:57] LABS: POC Glucose,Bedside 133 (70-110)
--- NOTE | 2021-05-26 07:31 | HMH.ACPN2 ---
Internal Medicine - PN: Subj *Date: 05/26/21 *Time: 07:31 Interval history: Patient is remained stable over the last 24 hours. He remains sedated and intubated. Patient remains on Levophed. When drip is discontinued patient becomes hypotensive Exam Vital signs and Labs for Last 24 Hours: Temp Pulse Resp BP Pulse Ox 99.2 F 77 26 H 113/53 L 91 L 05/26/21 04:00 05/26/21 06:00 05/26/21 06:00 05/26/21 06:00 05/26/21 06:00 Laboratory Results - last 24 hr 05/25/21 07:00: Specimen Source Right radial, O2 % 100, ABG pH 7.22 L*, ABG pCO2 53.0 H, ABG pO2 242.6 H, ABG HCO3 21.0 L, ABG Total CO2 22.6 L, ABG O2 Saturation 100, ABG Base Excess -6.8 L, [place] Test Patient unable, Vent Rate 22, Tidal Volume 440, PEEP 14 05/25/21 07:57: ABG Lactate 1.5 05/25/21 08:20: WBC 30.2 H*, RBC 3.97 L, Hgb 12.8 L, Hct 39.1 L, MCV 98.5 H, MCH 31.7 H, MCHC 32.2, RDW 14.4, Plt Count 219, MPV 8.4, Neut % (Auto) 94.2 H, Lymph % (Auto) 1.7 L, [place] % (Auto) 2.7, Eos % (Auto) 1.1, Baso % (Auto) 0.2, Neut # (Auto) 28.5 H, Lymph # (Auto) 0.5 L, [place] # (Auto) 0.8, Eos # (Auto) 0.3, Baso # (Auto) 0.1, Total Counted 100, Neutrophils % (Manual) 88 H, Band Neutrophils % 6.0, Lymphocytes % (Manual) 2 L, Monocytes % (Manual) 4, Platelet Estimate Normal, RBC Morphology Normal 05/25/21 08:20: Sodium 138, Potassium 4.6, Chloride 109 H, Carbon Dioxide 26, Anion Gap 7.6, BUN 68 H, Creatinine 1.90 H D, Estimated Creat Clear 38, Estimated GFR 34 L, Est GFR ( Amer) 42 L D, Glucose 204 H, Calcium 7.1 L, Total Bilirubin 0.5, AST 39 D, ALT 23 D, Alkaline Phosphatase 166 H, Total Protein 5.1 L, Albumin 2.4 L D, Globulin 2.7, Albumin/Globulin Ratio 0.9 L 05/25/21 08:20: PT 52.3 H, INR 5.23 H 05/25/21 12:03: POC Glucose 204 H 05/25/21 17:34: POC Glucose 201 H 05/25/21 20:06: POC Glucose 191 H 05/26/21 05:01: WBC 25.0 H*, RBC 3.78 L, Hgb 12.1 L, Hct 37.3 L, MCV 98.7 H, MCH 32.1 H, MCHC 32.5, RDW 14.5, Plt Count 179, MPV 8.4, Neut % (Auto) 94.2 H, Lymph % (Auto) 2.1 L, [place] % (Auto) 2.4, Eos % (Auto) 1.1, Baso % (Auto) 0.1, Neut # (Auto) 23.5 H, Lymph # (Auto) 0.5 L, [place] # (Auto) 0.6, Eos # (Auto) 0.3, Baso # (Auto) 0.0 05/26/21 05:01: Sodium 138, Potassium 4.6, Chloride 108 H, Carbon Dioxide 23, Anion Gap 11.6, BUN 75 H, Creatinine 2.20 H, Estimated Creat Clear 32, Estimated GFR 29 L, Est GFR ( Amer) 35 L, Glucose 195 H, Calcium 7.5 L, Total Bilirubin 0.4, AST 36, ALT 18, Alkaline Phosphatase 152 H, Total Protein 4.9 L, Albumin 2.2 L, Globulin 2.7, Albumin/Globulin Ratio 0.8 L 05/26/21 05:34: POC Glucose 133 H I & O for Last 24 hours: Intake & Output 05/23/21 05/24/21 05/25/21 05/26/21 11:59 11:59 11:59 11:59 Intake Total 680 / 680 800 / 800 1338.125 / 6153.060 6298.208 / 1325.208 Output Total 550 / 550 250 / 250 835 / 915 1055 / 1055 Balance 130 / 130 550 / 550 503.125 / 567.125 270.208 / 270.208 Weight 183 lb 3.266 oz 183 lb 4 oz 182 lb 12.211 oz 181 lb 14.102 oz Microbiology Reports for the Last 24 Hours: Microbiology 05/24/21 14:52 Sputum - Endotracheal Tube Aspirate Gram Stain - Final 05/24/21 14:52 Sputum - Endotracheal Tube Aspirate Sputum Culture - Preliminary 05/23/21 15:35 Blood Blood Culture - Preliminary NO GROWTH AFTER 48 HOURS 05/23/21 15:35 Blood Blood Culture - Preliminary NO GROWTH AFTER 48 HOURS Narrative: Patient appears comfortable. Patient is breathing with the vent. Lungs are clear anteriorly with persistent but faint rales left lateral lung and right lung base. Heart has a regular rate and rhythm. Abdomen is soft with active bowel sounds. Extremities are warm to touch. White blood cell count is decreased to 25,000 Creatinine is risen to 2.2. Assessment and Plan (1) Acute respiratory failure with hypoxia Status: Acute Category: Medical Code(s): J96.01 - Acute respiratory failure with hypoxia (2) Viral pneumonia Status: Acute Category: Me
[2021-05-26 07:33] LABS: INR 7.83 (0.9-1.1)
--- NOTE | 2021-05-26 07:56 | PC.NURSE ---
notified of critical lab values, PT 76 and INR 7.83
[2021-05-26 07:57] LABS: ABG Base Excess -5.9 mmol/L (-2.4-2.3); ABG HCO3 22.4 mmhg (22.0-26.0); ABG Oxygen Saturation 95 % (90-100); ABG PO2 79.9 mmhg (80-100); ABG TCO2 24.2 mmhg (23-27)
[2021-05-26 08:05] LABS: Allen's Test acceptable; Oxygen 70 %; PEEP 14; Source rr; Tidal Volume 440; Vent Rate 24
[2021-05-26 08:06] LABS: ABG PCO2 60.6 mmhg (35.0-45.0); ABG PH 7.19 mmol/L (7.35-7.45)
[2021-05-26 08:07] LABS: Lactate Arterial 1.4 mmol/L (0.4-2.0)
[2021-05-26 08:15] LABS: Lymphocytes % 6 % (10-50); Monocytes % 1 % (2-9); Neutrophils % 93 % (42-76); Total Cells Counted 100
[2021-05-26 08:16] LABS: Platelet Estimate Normal; RBC Morphology Normal
--- NOTE | 2021-05-26 09:35 | HMH.PULMPN ---
Internal Medicine - PN: Subj *Date: 05/26/21 *Time: 14:16 Interval history: Patient respiratory status declined over the weekend needing intubation and mechanical ventilatory support. Exam - Constitutional Constitutional:: Absent: no acute distress, comfortable - HENMT Exam HENMT: Present: normocephalic, atraumatic - Eye Exam Eyes:: Present: normal appearance both eyes and related structures - Neck Exam Neck:: Present: normal visual inspection - Respiratory Exam Respiratory:: Present: respiratory distress, rales. Absent: wheezing - Cardiovascular Exam Cardiac:: Present: S1, S2 - GI Exam GI:: Present: soft, no hepatosplenomegaly - Skin Exam Skin: Present: warm - Neurological Exam Neurological: Absent: alert, awake, normal cognition Intubated and sedated - Extremities Exam Extremities: Present: no cyanosis, no clubbing Assessment and Plan (1) Acute respiratory failure with hypoxia Status: Acute Category: Medical Code(s): J96.01 - Acute respiratory failure with hypoxia (2) Viral pneumonia Status: Acute Category: Medical Code(s): J12.9 - Viral pneumonia, unspecified (3) Long-term insulin use Status: Acute Category: Medical Code(s): Z79.4 - FDC (current) use of insulin (4) Diabetes mellitus with hyperglycemia Status: Acute Category: Medical Code(s): E11.65 - Type 2 diabetes mellitus with hyperglycemia (5) Essential hypertension Status: Acute Category: Medical Code(s): I10 - Essential (primary) hypertension (6) Status post aortic valve replacement Status: Acute Category: Surgical Code(s): Z95.2 - Presence of prosthetic heart valve (7) Former cigarette smoker Status: Acute Category: Social Hx Code(s): Z87.891 - Personal history of nicotine dependence (8) Pneumonia due to COVID-19 virus Status: Acute Category: Medical Code(s): U07.1 - COVID-19; J12.82 - Pneumonia due to coronavirus disease 2019 (9) COVID-19 virus infection Status: Acute Category: Medical Code(s): U07.1 - COVID-19 (10) Left leg DVT Status: Acute Category: Medical Code(s): I82.402 - Acute embolism and thrombosis of unspecified deep veins of left lower extremity (11) Acute kidney injury Status: Resolved Category: Medical Code(s): N17.9 - Acute kidney failure, unspecified (12) Infection due to Enterobacter aerogenes Status: Acute Category: Medical Code(s): A49.8 - Other bacterial infections of unspecified site (13) Bacterial pneumonia Status: Acute Category: Medical Code(s): J15.9 - Unspecified bacterial pneumonia - Assessment and plan all Dx Assessment and Plan for all problems:: #Acute hypoxic respiratory failure: #COVID-19 pneumonia: # History of DVT: # Recurrent DVT: 80-year-old male prior smoker, greater than [id number] smoking history. Not yet vaccinated. COVID-19 PCR positive. Flu panel negative CRP elevated at 54.7 on admission. On home anticoagulation apixaban 5 twice daily. DImer elevated at 0.74 ABG on admission showed metabolic acidosis with respiratory compensation with a PO2 of 76.4 and a PCO2 of 29.2 with a pH of 7.43 Chest x-ray on admission with bilateral diffuse groundglass opacities along with patchy consolidative lesion in the left lower lobe along with dense infiltrate in the right lower lobe. Sternal wires present. Cardiomegaly. Lower extremity Doppler positive for DVT. Patient has a history of DVT from June 2020 as per the patient and has been on anticoagulation since then. Initiated on Coumadin for treatment failure. Sputum growing Enterobacter aerogenes, which is sensitive to ceftriaxone. Nasal MRSA PCR negative. Blood cultures no growth 5 days Completed 5-day course of azithromycin. Patient received methylprednisolone 125 every 6 hours for 3 days and was changed to prednisone 60 mg on 05/21/21 which was eventually discontinued given worsening leukocytosis and concern for infectious etiology. Patient ant
--- NOTE | 2021-05-26 11:01 | HMH.ACPN ---
Internal Medicine - PN: Subj *Date: 05/26/21 *Time: 11:01 Exam Vital signs and Labs for Last 24 Hours: Temp Pulse Resp BP Pulse Ox 100.0 F H 74 24 130/58 L 92 L 05/26/21 08:00 05/26/21 09:00 05/26/21 07:00 05/26/21 07:00 05/26/21 07:00 Laboratory Results - last 24 hr 05/25/21 12:03: POC Glucose 204 H 05/25/21 17:34: POC Glucose 201 H 05/25/21 20:06: POC Glucose 191 H 05/26/21 05:01: WBC 25.0 H*, RBC 3.78 L, Hgb 12.1 L, Hct 37.3 L, MCV 98.7 H, MCH 32.1 H, MCHC 32.5, RDW 14.5, Plt Count 179, MPV 8.4, Neut % (Auto) 94.2 H, Lymph % (Auto) 2.1 L, [place] % (Auto) 2.4, Eos % (Auto) 1.1, Baso % (Auto) 0.1, Neut # (Auto) 23.5 H, Lymph # (Auto) 0.5 L, [place] # (Auto) 0.6, Eos # (Auto) 0.3, Baso # (Auto) 0.0, Total Counted 100, Neutrophils % (Manual) 93 H, Lymphocytes % (Manual) 6 L, Monocytes % (Manual) 1 L, Platelet Estimate Normal, RBC Morphology Normal 05/26/21 05:01: Sodium 138, Potassium 4.6, Chloride 108 H, Carbon Dioxide 23, Anion Gap 11.6, BUN 75 H, Creatinine 2.20 H, Estimated Creat Clear 32, Estimated GFR 29 L, Est GFR ( Amer) 35 L, Glucose 195 H, Calcium 7.5 L, Total Bilirubin 0.4, AST 36, ALT 18, Alkaline Phosphatase 152 H, Total Protein 4.9 L, Albumin 2.2 L, Globulin 2.7, Albumin/Globulin Ratio 0.8 L 05/26/21 05:01: PT 76.0 H, INR 7.83 H 05/26/21 05:34: POC Glucose 133 H 05/26/21 06:00: ABG Lactate 1.4 05/26/21 07:00: Specimen Source rr, O2 % 70, ABG pH 7.19 L*, ABG pCO2 60.6 H, ABG pO2 79.9 L, ABG HCO3 22.4, ABG Total CO2 24.2, ABG O2 Saturation 95, ABG Base Excess -5.9 L, [place] Test acceptable, Vent Rate 24, Tidal Volume 440, PEEP 14 I & O for Last 24 hours: Intake & Output 05/23/21 05/24/21 05/25/21 05/26/21 23:59 23:59 23:59 23:59 Intake Total 720 / 780 604 / 623 1848.583 / 1898.583 571.75 / 571.75 Output Total 545 / 575 1340 / 1340 255 / 255 Balance 720 / 780 59 / 48 508.583 / 558.583 316.75 / 316.75 Weight 83.1 kg 83.121 kg 82.9 kg 82.5 kg Microbiology Reports for the Last 24 Hours: Microbiology 05/24/21 14:52 Sputum - Endotracheal Tube Aspirate Gram Stain - Final 05/24/21 14:52 Sputum - Endotracheal Tube Aspirate Sputum Culture - Preliminary 05/23/21 15:35 Blood Blood Culture - Preliminary NO GROWTH AFTER 48 HOURS 05/23/21 15:35 Blood Blood Culture - Preliminary NO GROWTH AFTER 48 HOURS Assessment and Plan (1) Acute respiratory failure with hypoxia Status: Acute Category: Medical Code(s): J96.01 - Acute respiratory failure with hypoxia (2) Viral pneumonia Status: Acute Category: Medical Code(s): J12.9 - Viral pneumonia, unspecified (3) Long-term insulin use Status: Acute Category: Medical Code(s): 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 (4) Diabetes mellitus with hyperglycemia Status: Acute Category: Medical Code(s): E11.65 - Type 2 diabetes mellitus with hyperglycemia (5) Essential hypertension Status: Acute Category: Medical Code(s): I10 - Essential (primary) hypertension (6) Status post aortic valve replacement Status: Acute Category: Surgical Code(s): Z95.2 - Presence of prosthetic heart valve (7) Former cigarette smoker Status: Acute Category: Social Hx Code(s): Z87.891 - Personal history of nicotine dependence (8) Pneumonia due to COVID-19 virus Status: Acute Category: Medical Code(s): U07.1 - COVID-19; J12.82 - Pneumonia due to coronavirus disease 2019 (9) COVID-19 virus infection Status: Acute Category: Medical Code(s): U07.1 - COVID-19 (10) Left leg DVT Status: Acute Category: Medical Code(s): I82.402 - Acute embolism and thrombosis of unspecified deep veins of left lower extremity (11) Acute kidney injury Status: Resolved Category: Medical Code(s): N17.9 - Acute kidney failure, unspecified (12) Infection due to Enterobacter aerogenes Status: Acute Category: Medical Code(s): A49.8 - Other bacterial infections of u
[2021-05-26 12:53] LABS: ABG Base Excess -7.1 mmol/L (-2.4-2.3); ABG HCO3 21.6 mmhg (22.0-26.0); ABG Oxygen Saturation 99 % (90-100); ABG PO2 156.4 mmhg (80-100); ABG TCO2 23.5 mmhg (23-27)
[2021-05-26 13:10] LABS: ABG PH 7.16 mmol/L (7.35-7.45); Allen's Test Patient Unable; Oxygen 80% %; PEEP 16; Source Right Radial; Tidal Volume 460; Vent Rate 26
[2021-05-26 13:11] LABS: ABG PCO2 62.1 mmhg (35.0-45.0)
--- NOTE | 2021-05-26 13:41 | HMH.PHAINT ---
PER DR ENCISO: STOP THE PATIENT'S WARFARIN AND START A HEPARIN DRIP ONCE THE INR IS WITHIN THE PATIENT'S THERAPEUTIC RANGE.
--- NOTE | 2021-05-26 14:02 | PC.NURSE ---
RESP CARE NOTE: ventilator changes as follows: Rate 26, Vt 460, FIO2 at 80% per Dr Jasso v/o. Will continue to monitor.
--- NOTE | 2021-05-26 15:45 | PC.NURSE ---
1030 during am rounds, Dr Jasso ordered that bolus be given with LR instead of NS. orders changed.
--- NOTE | 2021-05-26 20:02 | PC.NURSE ---
upon reassessment at 1200 and 1600 ble warm to touch. lle discolored, pulses in foot palpable. rle foot cool to touch, pulse on top of foot not doppler-able or palpable. pulses able to be dopplered on inner and outer aspect of ankle. Dr Jasso was made aware during am rounds.
--- NOTE | 2021-05-26 20:08 | PC.NURSE ---
abrasions noted to bilateral elbows. elbow pads placed for protection from further injury.
--- NOTE | 2021-05-26 20:46 | PC.NURSE ---
levo drip increased to 14mcg
--- NOTE | 2021-05-26 20:49 | PC.NURSE ---
levo drip increased 10mcg
[2021-05-26 21:33] LABS: POC Glucose,Bedside 272 (70-110)
[2021-05-26 21:53] LABS: POC Glucose,Bedside 251 (70-110)
[2021-05-27] VITALS (37 sets, daily range): BP systolic 84–133; BP diastolic 44–68; PULSE 79–100; RESP 16–29; TEMP 37–38.1; O2SAT 93–98; BMI 27.9
[2021-05-27 05:47] LABS: Basophils % 0.1 % (0.1-2.0); Eosinophils # 0.3 K/mm3 (0.0-0.4); Eosinophils % 1.1 % (0.1-12.0); Hematocrit 36.8 % (42.0-52.0); Hemoglobin 11.7 g/dL (14.1-18.0); Lymphocytes # 0.5 K/mm3 (0.7-4.5); Mean Corpuscular HGB Conc 31.9 g/dL (31.8-35.4); Mean Corpuscular Hemoglobin 31.9 pg (27.0-31.2); Mean Platelet Volume 8.3 fl (7.4-10.4); Monocytes # 0.7 K/mm3 (0.1-1.0); Monocytes % 2.9 % (1.7-9.3); Neutrophils # 22.2 K/mm3 (1.8-7.8); Neutrophils % 93.8 % (37.0-80.0); Platelet Count 152 K/mm3 (142-424); Red Blood Count 3.68 M/mm3 (4.60-6.20); Red Cell Distribution Width 14.8 % (11.5-17.5); White Blood Count 23.6 K/mm3 (4.8-10.8)
[2021-05-27 05:58] LABS: Alanine Aminotransferase 21 U/L (12-78); Albumin Level 2.2 g/dl (3.5-5.0); Albumin/Globulin Ratio 0.8 (1.1-1.8); Alkaline Phosphatase 151 U/L (38-126); Anion Gap 8.1 mEq/L (5-15); Aspartate Amino Transferase 54 U/L (17-59); Bilirubin,Total 0.5 mg/dl (0.2-1.3); Calcium 7.7 mg/dl (8.4-10.2); Carbon Dioxide 26 mmol/L (22.0-30.0); Chloride 112 mmol/L (98-107); Creatinine Clearance Estimated 27 mL/min (50-200); Estimated Glomerular Filt Rate 24 ml/min (>60); GFR (African American) 29 ML/MIN (>60); Globulin 2.7 g/dL (1.3-3.2); Glucose 178 mg/dl (74-100); Potassium 5.1 mmoL/L (3.5-5.1); Sodium 141 mmol/L (136-145); Total Protein,Serum 4.9 g/dl (6.3-8.2)
[2021-05-27 06:09] LABS: POC Glucose,Bedside 147 (70-110)
[2021-05-27 06:16] LABS: MANUAL DIFFERENTIAL MANUAL DIFFERENTIAL (MANUAL DIFF)
[2021-05-27 06:31] LABS: Prothrombin Time 87.5 seconds (10.1-12.5)
[2021-05-27 07:09] LABS: Blood Urea Nitrogen 99 mg/dl (9-20)
--- NOTE | 2021-05-27 07:36 | HMH.ACPN2 ---
Internal Medicine - PN: Subj *Date: 05/27/21 *Time: 07:36 Interval history: Patient has remained stable on ventilator. No acute events overnight per nursing staff. Patient has not had a bowel movement Exam Vital signs and Labs for Last 24 Hours: Temp Pulse Resp BP Pulse Ox 100.1 F H 88 28 H 109/55 L 94 L 05/27/21 00:00 05/27/21 06:00 05/27/21 06:00 05/27/21 06:00 05/27/21 06:00 Laboratory Results - last 24 hr 05/26/21 05:01: Total Counted 100, Neutrophils % (Manual) 93 H, Lymphocytes % (Manual) 6 L, Monocytes % (Manual) 1 L, Platelet Estimate Normal, RBC Morphology Normal 05/26/21 06:00: ABG Lactate 1.4 05/26/21 07:00: Specimen Source rr, O2 % 70, ABG pH 7.19 L*, ABG pCO2 60.6 H, ABG pO2 79.9 L, ABG HCO3 22.4, ABG Total CO2 24.2, ABG O2 Saturation 95, ABG Base Excess -5.9 L, [place] Test acceptable, Vent Rate 24, Tidal Volume 440, PEEP 14 05/26/21 12:57: Specimen Source Right radial, O2 % 80%, ABG pH 7.16 L*, ABG pCO2 62.1 H, ABG pO2 156.4 H, ABG HCO3 21.6 L, ABG Total CO2 23.5, ABG O2 Saturation 99, ABG Base Excess -7.1 L, [place] Test Patient unable, Vent Rate 26, Tidal Volume 460, PEEP 16 05/26/21 12:57: POC Glucose 272 H 05/26/21 21:45: POC Glucose 251 H 05/27/21 05:30: WBC 23.6 H*, RBC 3.68 L, Hgb 11.7 L, Hct 36.8 L, MCV 100.0 H, MCH 31.9 H, MCHC 31.9, RDW 14.8, Plt Count 152, MPV 8.3, Neut % (Auto) 93.8 H, Lymph % (Auto) 2.0 L, [place] % (Auto) 2.9, Eos % (Auto) 1.1, Baso % (Auto) 0.1, Neut # (Auto) 22.2 H, Lymph # (Auto) 0.5 L, [place] # (Auto) 0.7, Eos # (Auto) 0.3, Baso # (Auto) 0.0 05/27/21 05:30: Sodium 141, Potassium 5.1, Chloride 112 H, Carbon Dioxide 26, Anion Gap 8.1, BUN 99 H D, Creatinine 2.60 H, Estimated Creat Clear 27, Estimated GFR 24 L, Est GFR ( Amer) 29 L, Glucose 178 H, Calcium 7.7 L, Total Bilirubin 0.5, AST 54 D, ALT 21, Alkaline Phosphatase 151 H, Total Protein 4.9 L, Albumin 2.2 L, Globulin 2.7, Albumin/Globulin Ratio 0.8 L 05/27/21 05:45: POC Glucose 147 H 05/27/21 05:50: PT 87.5 H, INR 8.00 H I & O for Last 24 hours: Intake & Output 05/24/21 05/25/21 05/26/21 05/27/21 11:59 11:59 11:59 11:59 Intake Total 800 / 800 1338.125 / 8007.187 9014.208 / 2036.208 2689.017 / 2689.017 Output Total 250 / 250 835 / 915 1235 / 1280 865 / 865 Balance 550 / 550 503.125 / 567.125 737.208 / 370.254 3341.017 / 1824.017 Weight 183 lb 4 oz 182 lb 12.211 oz 181 lb 14.102 oz Microbiology Reports for the Last 24 Hours: Microbiology 05/24/21 14:52 Sputum - Endotracheal Tube Aspirate Gram Stain - Final 05/24/21 14:52 Sputum - Endotracheal Tube Aspirate Sputum Culture - Preliminary Narrative: Patient is sedated and appears comfortable. Lungs have some rhonchi in the right lateral and posterior base. Heart has a regular rate and rhythm. Abdomen is soft with active bowel sounds. Extremities are warm to the touch. Assessment and Plan (1) Acute respiratory failure with hypoxia Status: Acute Category: Medical Code(s): J96.01 - Acute respiratory failure with hypoxia (2) Viral pneumonia Status: Acute Category: Medical Code(s): J12.9 - Viral pneumonia, unspecified (3) Long-term insulin use Status: Acute Category: Medical Code(s): Z79.4 - ap operator (current) use of insulin (4) Diabetes mellitus with hyperglycemia Status: Acute Category: Medical Code(s): E11.65 - Type 2 diabetes mellitus with hyperglycemia (5) Essential hypertension Status: Acute Category: Medical Code(s): I10 - Essential (primary) hypertension (6) Status post aortic valve replacement Status: Acute Category: Surgical Code(s): Z95.2 - Presence of prosthetic heart valve (7) Former cigarette smoker Status: Acute Category: Social Hx Code(s): Z87.891 - Personal history of nicotine dependence (8) Pneumonia due to COVID-19 virus Status: Acute Category: Medical Code(s): U07.1 - COVID-19; J12.82 - Pneumonia due to coronavirus disease 2019 (9) COVID-19 virus infection Status:
[2021-05-27 08:03] LABS: ABG Base Excess -5.6 mmol/L (-2.4-2.3); ABG HCO3 21.5 mmhg (22.0-26.0); ABG Oxygen Saturation 97 % (90-100); ABG PCO2 48.8 mmhg (35.0-45.0); ABG PH 7.26 mmol/L (7.35-7.45); ABG PO2 99.1 mmhg (80-100); Lactate Arterial 1.5 mmol/L (0.4-2.0); Oxygen 75% %; Tidal Volume 460
[2021-05-27 08:04] LABS: Allen's Test Patient Unable; PEEP 16; Source Left Radial; Vent Rate 28
[2021-05-27 08:43] LABS: Lymphocytes % 2 % (10-50); Monocytes % 1 % (2-9); Neutrophils % 97 % (42-76); Total Cells Counted 100
[2021-05-27 08:44] LABS: Platelet Estimate Normal
--- NOTE | 2021-05-27 08:57 | DIET.NUTRFU ---
RD reviewed patient with nurse. Tolerating TF currently at 40mL/hr at goal rate of 55mL/hr providing 1900kcal/80gm protein and 1000ml free water, flush with 165ml q4H providing additional 990ml/day providing total fluid of 1900ml/day. BUN 99H, Cr 2.6H indicating declining renal fxn. Pt continues on propofol providing 100 mL q4h for total of additional 660 kcal/day.
--- NOTE | 2021-05-27 10:11 | XR_ITS ---
FINAL REPORT CLINICAL HISTORY: hypoxia, covid COMPARISON: 05/26/2021 FINDINGS: SINGLE VIEW CHEST The heart is normal in size. The mediastinum is unremarkable. Endotracheal tube is unchanged. Left subclavian central venous catheter tip terminates in the SVC. There is extensive subcutaneous emphysema in the supraclavicular regions, new or increased from previous. There are patchy bibasilar airspace infiltrates. Airspace opacity at the left base has increased since prior. There is no pneumothorax. IMPRESSION: Interval development of subcutaneous emphysema, particularly in supraclavicular regions. Worsening left lower lobe infiltrate. Reviewed, Interpreted and Dictated by Cristfoer Cruz MD Transcribed by Nanette Lopez Authenticated by Cristofer Cruz MD on 05/27/2021 11:58:58 AM [facility]
[2021-05-27 11:36] LABS: POC Glucose,Bedside 195 (70-110)
[2021-05-27 11:38] LABS: POC Glucose,Bedside 252 (70-110)
--- NOTE | 2021-05-27 13:19 | HMH.PULMPN ---
Internal Medicine - PN: Subj *Date: 05/27/21 *Time: 13:37 Exam - Constitutional Constitutional:: Absent: no acute distress, comfortable - HENMT Exam HENMT: Present: normocephalic, atraumatic - Eye Exam Eyes:: Present: normal appearance both eyes and related structures - Neck Exam Neck:: Present: normal visual inspection - Respiratory Exam Respiratory:: Present: respiratory distress, rales - Cardiovascular Exam Cardiac:: Present: S1, S2 - GI Exam GI:: Present: soft, no hepatosplenomegaly - Skin Exam Skin: Present: warm, no rash - Neurological Exam Neurological: Absent: alert, awake, normal cognition intubated and sedated - Extremities Exam Extremities: Present: no cyanosis, no clubbing Assessment and Plan (1) Acute respiratory failure with hypoxia Status: Acute Category: Medical Code(s): J96.01 - Acute respiratory failure with hypoxia (2) Viral pneumonia Status: Acute Category: Medical Code(s): J12.9 - Viral pneumonia, unspecified (3) Long-term insulin use Status: Acute Category: Medical Code(s): Z79.4 - terminal 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 (current) use of insulin (4) Diabetes mellitus with hyperglycemia Status: Acute Category: Medical Code(s): E11.65 - Type 2 diabetes mellitus with hyperglycemia (5) Essential hypertension Status: Acute Category: Medical Code(s): I10 - Essential (primary) hypertension (6) Status post aortic valve replacement Status: Acute Category: Surgical Code(s): Z95.2 - Presence of prosthetic heart valve (7) Former cigarette smoker Status: Acute Category: Social Hx Code(s): Z87.891 - Personal history of nicotine dependence (8) Pneumonia due to COVID-19 virus Status: Acute Category: Medical Code(s): U07.1 - COVID-19; J12.82 - Pneumonia due to coronavirus disease 2019 (9) COVID-19 virus infection Status: Acute Category: Medical Code(s): U07.1 - COVID-19 (10) Left leg DVT Status: Acute Category: Medical Code(s): I82.402 - Acute embolism and thrombosis of unspecified deep veins of left lower extremity (11) Acute kidney injury Status: Acute Category: Medical Code(s): N17.9 - Acute kidney failure, unspecified (12) Infection due to Enterobacter aerogenes Status: Acute Category: Medical Code(s): A49.8 - Other bacterial infections of unspecified site (13) Bacterial pneumonia Status: Acute Category: Medical Code(s): J15.9 - Unspecified bacterial pneumonia - Assessment and plan all Dx Assessment and Plan for all problems:: #Acute hypoxic respiratory failure: #COVID-19 pneumonia: # History of DVT: # Recurrent DVT: 80-year-old male prior smoker, greater than [id number] smoking history. Not yet vaccinated. COVID-19 PCR positive. Flu panel negative CRP elevated at 54.7 on admission. On home anticoagulation apixaban 5 twice daily. DImer elevated at 0.74 ABG on admission showed metabolic acidosis with respiratory compensation with a PO2 of 76.4 and a PCO2 of 29.2 with a pH of 7.43 Chest x-ray on admission with bilateral diffuse groundglass opacities along with patchy consolidative lesion in the left lower lobe along with dense infiltrate in the right lower lobe. Sternal wires present. Cardiomegaly. Lower extremity Doppler positive for DVT. Patient has a history of DVT from June 2020 as per the patient and has been on anticoagulation since then. Initiated on Coumadin for treatment failure. Sputum- Enterobacter aerogenes, which is sensitive to ceftriaxone. Nasal MRSA PCR negative. Blood cultures no growth 5 days Completed 5-day course of azithromycin. Patient received methylprednisolone 125 every 6 hours for 3 days and was changed to prednisone 60 mg on 05/21/21 which was eventually discontinued given worsening leukocytosis and concern for infectious etiology. Patient antibiotics were escalated to meropenem. Patient respiratory status gradually declining significantly worsening pulmonary recommend treating patient on me
[2021-05-28] VITALS (34 sets, daily range): BP systolic 86–153; BP diastolic 35–70; PULSE 80–121; RESP 28–32; TEMP 36.6–38.1; O2SAT 92–96; BMI 28.0
[2021-05-28 00:44] LABS: POC Glucose,Bedside 176 (70-110)
--- NOTE | 2021-05-28 06:00 | XR_ITS ---
PROCEDURE INFORMATION: Exam: XR Chest Exam date and time: 05/28/2021 6:00 AM Age: 80 years old Clinical indication: Condition or disease; Lung condition and disease; Pneumonia; Other: Covid; Additional info: Daily while intubated TECHNIQUE: Imaging protocol: XR of the chest. Views: 1 view. COMPARISON: CR XR CHEST PORTABLE 05/27/2021 10:32 AM FINDINGS: Tubes, catheters and devices: Endotracheal tube terminates approximately 5.5 cm above the leny. NG tube passes into the stomach. Left subclavian central venous catheter terminates in the mid SVC. Lungs: Similar bilateral airspace opacities. Pleural spaces: No discernible pneumothorax. No substantial pleural effusion. Heart/Mediastinum: Query a small amount of pneumomediastinum. Changes of prior CABG. Bones/joints: Unremarkable. Soft tissues: Increasing subcutaneous emphysema over the thorax. IMPRESSION: 1. Increasing subcutaneous emphysema over the thorax. Query a small amount of pneumomediastinum. No discernible pneumothorax. 2. Similar appearance of multilobar pneumonia. 3. Support apparatus are in stable positions as detailed above.
--- NOTE | 2021-05-28 06:33 | PC.NURSE ---
urine output this shift has been poor vent settings FiO2 75 Peep 16 TV 460 Rate 28 Propofol gtt @ 30 Fentanyl @ 50 Levo @ 4
[2021-05-28 06:57] LABS: Basophils % 0.2 % (0.1-2.0); Eosinophils # 0.1 K/mm3 (0.0-0.4); Eosinophils % 0.5 % (0.1-12.0); Hematocrit 34.8 % (42.0-52.0); Hemoglobin 10.5 g/dL (14.1-18.0); Lymphocytes # 0.5 K/mm3 (0.7-4.5); Lymphocytes % 2.4 % (10-50); Mean Corpuscular HGB Conc 30.3 g/dL (31.8-35.4); Mean Corpuscular Hemoglobin 31.7 pg (27.0-31.2); Mean Corpuscular Volume 104.7 fl (80-94); Mean Platelet Volume 8.7 fl (7.4-10.4); Monocytes # 0.6 K/mm3 (0.1-1.0); Monocytes % 3.2 % (1.7-9.3); Neutrophils # 18.5 K/mm3 (1.8-7.8); Neutrophils % 93.7 % (37.0-80.0); Platelet Count 128 K/mm3 (142-424); Red Blood Count 3.32 M/mm3 (4.60-6.20); Red Cell Distribution Width 14.7 % (11.5-17.5); White Blood Count 19.7 K/mm3 (4.8-10.8)
[2021-05-28 06:59] LABS: MANUAL DIFFERENTIAL MANUAL DIFFERENTIAL (MANUAL DIFF)
[2021-05-28 07:20] LABS: Alanine Aminotransferase 17 U/L (12-78); Albumin Level 2.1 g/dl (3.5-5.0); Albumin/Globulin Ratio 0.8 (1.1-1.8); Alkaline Phosphatase 136 U/L (38-126); Anion Gap 10.1 mEq/L (5-15); Aspartate Amino Transferase 40 U/L (17-59); Bilirubin,Total 0.4 mg/dl (0.2-1.3); Calcium 7.6 mg/dl (8.4-10.2); Carbon Dioxide 27 mmol/L (22.0-30.0); Chloride 111 mmol/L (98-107); Creatinine Clearance Estimated 19 mL/min (50-200); Estimated Glomerular Filt Rate 15 ml/min (>60); GFR (African American) 18 ML/MIN (>60); Globulin 2.7 g/dL (1.3-3.2); Glucose 288 mg/dl (74-100); Sodium 142 mmol/L (136-145); Total Protein,Serum 4.8 g/dl (6.3-8.2)
[2021-05-28 07:33] LABS: INR 6.16 (0.9-1.1)
[2021-05-28 07:34] LABS: Prothrombin Time 60.8 seconds (10.1-12.5)
--- NOTE | 2021-05-28 07:34 | PC.NURSE ---
received call from lab reporting PTT 60.8 and INR 6.16. Name and verified. Dr. Lara notified.
[2021-05-28 07:38] LABS: Blood Urea Nitrogen 131 mg/dl (9-20); Potassium 6.1 mmoL/L (3.5-5.1)
--- NOTE | 2021-05-28 07:39 | HMH.ACPN2 ---
Internal Medicine - PN: Subj *Date: 05/28/21 *Time: 07:39 Interval history: No acute events over the last 24 hours. Patient's urine output has decreased significantly in is minimal. Exam Vital signs and Labs for Last 24 Hours: Temp Pulse Resp BP Pulse Ox 99.3 F 94 H 28 H 124/65 94 L 05/28/21 04:00 05/28/21 07:00 05/28/21 07:00 05/28/21 07:00 05/28/21 07:00 Laboratory Results - last 24 hr 05/26/21 18:14: POC Glucose 252 H 05/27/21 05:30: Total Counted 100, Neutrophils % (Manual) 97 H, Lymphocytes % (Manual) 2 L, Monocytes % (Manual) 1 L, Platelet Estimate Normal 05/27/21 08:00: Specimen Source Left radial, O2 % 75%, ABG pH 7.26 L, ABG pCO2 48.8 H, ABG pO2 99.1, ABG HCO3 21.5 L, ABG Total CO2 23.0, ABG O2 Saturation 97, ABG Base Excess -5.6 L, [place] Test Patient unable, ABG Lactate 1.5, Vent Rate 28, Tidal Volume 460, PEEP 16 05/27/21 11:28: POC Glucose 195 H 05/27/21 21:12: POC Glucose 176 H 05/28/21 06:40: PT 60.8 H, INR 6.16 H 05/28/21 06:40: WBC 19.7 H, RBC 3.32 L, Hgb 10.5 L, Hct 34.8 L, MCV 104.7 H, MCH 31.7 H, MCHC 30.3 L, RDW 14.7, Plt Count 128 L, MPV 8.7, Neut % (Auto) 93.7 H, Lymph % (Auto) 2.4 L, [place] % (Auto) 3.2, Eos % (Auto) 0.5, Baso % (Auto) 0.2, Neut # (Auto) 18.5 H, Lymph # (Auto) 0.5 L, [place] # (Auto) 0.6, Eos # (Auto) 0.1, Baso # (Auto) 0.0 05/28/21 06:40: Sodium 142, Potassium 6.1 H*, Chloride 111 H, Carbon Dioxide 27, Anion Gap 10.1, BUN 131 H* D, Creatinine 3.90 H D, Estimated Creat Clear 19, Estimated GFR 15 L*, Est GFR ( Amer) 18 L* D, Glucose 288 H, Calcium 7.6 L, Total Bilirubin 0.4, AST 40 D, ALT 17, Alkaline Phosphatase 136 H, Total Protein 4.8 L, Albumin 2.1 L, Globulin 2.7, Albumin/Globulin Ratio 0.8 L I & O for Last 24 hours: Intake & Output 05/25/21 05/26/21 05/27/21 05/28/21 11:59 11:59 11:59 11:59 Intake Total 1338.125 / 6708.322 7669.208 / 2035.208 2980.844 / 2980.844 3154.872 / 3154.872 Output Total 835 / 915 1235 / 1280 1140 / 1140 390 / 390 Balance 503.125 / 567.125 737.208 / 772.962 1735.844 / 5392.307 3687.872 / 2764.872 Weight 182 lb 12.211 oz 181 lb 14.102 oz 188 lb 14.978 oz 189 lb 6.033 oz Narrative: Patient is sedated on the vent. Patient has subcutaneous emphysema on the right. Breath sounds are distant on the right. Left lung has some rhonchi heard at the base and laterally. Heart has a regular rate and rhythm. Abdomen is soft. Extremities are warm to the touch. Creatinine has risen to 6.1 with BUN of 131 INR has decreased to 6.16 White blood cell count has decreased to 19.7 Potassium is increased to 6.1 Chest x-ray shows similar appearance and patient's multi lobar pneumonia with subcutaneous emphysema Assessment and Plan (1) Acute respiratory failure with hypoxia Status: Acute Category: Medical Code(s): J96.01 - Acute respiratory failure with hypoxia (2) Viral pneumonia Status: Acute Category: Medical Code(s): J12.9 - Viral pneumonia, unspecified (3) Long-term insulin use Status: Acute Category: Medical Code(s): Z79.4 - intermediate (current) use of insulin (4) Diabetes mellitus with hyperglycemia Status: Acute Category: Medical Code(s): E11.65 - Type 2 diabetes mellitus with hyperglycemia (5) Essential hypertension Status: Acute Category: Medical Code(s): I10 - Essential (primary) hypertension (6) Status post aortic valve replacement Status: Acute Category: Surgical Code(s): Z95.2 - Presence of prosthetic heart valve (7) Former cigarette smoker Status: Acute Category: Social Hx Code(s): Z87.891 - Personal history of nicotine dependence (8) Pneumonia due to COVID-19 virus Status: Acute Category: Medical Code(s): U07.1 - COVID-19; J12.82 - Pneumonia due to coronavirus disease 2019 (9) COVID-19 virus infection Status: Acute Category: Medical Code(s): U07.1 - COVID-19 (10) Left leg DVT Status: Acute Category: Medical Code(s): I82.402 - Acute embolism and thrombosis of un
[2021-05-28 07:47] LABS: Lactate Arterial 1.3 mmol/L (0.4-2.0)
--- NOTE | 2021-05-28 07:49 | PC.NURSE ---
received call from lab reporting K 6.[address] Lara notified.
[2021-05-28 07:52] LABS: ABG PH 7.12 mmol/L (7.35-7.45)
[2021-05-28 07:53] LABS: ABG Base Excess -6.9 mmol/L (-2.4-2.3); ABG HCO3 23.2 mmhg (22.0-26.0); ABG Oxygen Saturation 97 % (90-100); ABG PCO2 73.2 mmhg (35.0-45.0); ABG PO2 99.9 mmhg (80-100); ABG TCO2 25.5 mmhg (23-27)
[2021-05-28 07:54] LABS: Allen's Test ACCEPTABLE; Oxygen 100 %; PEEP 16; Source Right Radial; Tidal Volume 440; Vent Rate 24
[2021-05-28 08:10] LABS: Lymphocytes % 5 % (10-50); Macrocytosis 2+; Monocytes % 3 % (2-9); Neutrophils % 92 % (42-76); Platelet Estimate Normal; Total Cells Counted 100
[2021-05-28 08:11] LABS: Hypochromasia 2+
--- NOTE | 2021-05-28 09:24 | HMH.PULMPN ---
Internal Medicine - PN: Subj *Date: 05/28/21 *Time: 11:37 Interval history: No acute respiratory vents overnight. Patient continues remain in high ventilator settings. Exam - Constitutional Constitutional:: Absent: no acute distress, comfortable - HENMT Exam HENMT: Present: normocephalic, atraumatic - Eye Exam Eyes:: Present: normal appearance both eyes and related structures - Neck Exam Neck:: Present: normal visual inspection Comments: Continue to note subcutaneous emphysema. Relatively stable. - Respiratory Exam Respiratory:: Present: respiratory distress, rales. Absent: wheezing - Cardiovascular Exam Cardiac:: Present: S1, S2 - GI Exam GI:: Present: soft, no hepatosplenomegaly - Skin Exam Skin: Present: warm, rash - Neurological Exam Neurological: Absent: alert, awake, normal cognition - Extremities Exam Extremities: Present: no cyanosis, no clubbing, edema Assessment and Plan (1) Acute respiratory failure with hypoxia Status: Acute Category: Medical Code(s): J96.01 - Acute respiratory failure with hypoxia (2) Viral pneumonia Status: Acute Category: Medical Code(s): J12.9 - Viral pneumonia, unspecified (3) Long-term insulin use Status: Acute Category: Medical Code(s): 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 (4) Diabetes mellitus with hyperglycemia Status: Acute Category: Medical Code(s): E11.65 - Type 2 diabetes mellitus with hyperglycemia (5) Essential hypertension Status: Acute Category: Medical Code(s): I10 - Essential (primary) hypertension (6) Status post aortic valve replacement Status: Acute Category: Surgical Code(s): Z95.2 - Presence of prosthetic heart valve (7) Former cigarette smoker Status: Acute Category: Social Hx Code(s): Z87.891 - Personal history of nicotine dependence (8) Pneumonia due to COVID-19 virus Status: Acute Category: Medical Code(s): U07.1 - COVID-19; J12.82 - Pneumonia due to coronavirus disease 2019 (9) COVID-19 virus infection Status: Acute Category: Medical Code(s): U07.1 - COVID-19 (10) Left leg DVT Status: Acute Category: Medical Code(s): I82.402 - Acute embolism and thrombosis of unspecified deep veins of left lower extremity (11) Acute kidney injury Status: Acute Category: Medical Code(s): N17.9 - Acute kidney failure, unspecified (12) Infection due to Enterobacter aerogenes Status: Acute Category: Medical Code(s): A49.8 - Other bacterial infections of unspecified site (13) Bacterial pneumonia Status: Acute Category: Medical Code(s): J15.9 - Unspecified bacterial pneumonia (14) Acute renal failure with oliguria Status: Acute Category: Medical Code(s): N17.9 - Acute kidney failure, unspecified; R34 - Anuria and oliguria (15) Hyperkalemia Status: Acute Category: Medical Code(s): E87.5 - Hyperkalemia - Assessment and plan all Dx Assessment and Plan for all problems:: #Acute hypoxic respiratory failure: #COVID-19 pneumonia: # History of DVT: # Recurrent DVT: 80-year-old male prior smoker, greater than [id number] smoking history. Not yet vaccinated. COVID-19 PCR positive. Flu panel negative CRP elevated at 54.7 on admission. On home anticoagulation apixaban 5 twice daily. DImer elevated at 0.74 ABG on admission showed metabolic acidosis with respiratory compensation with a PO2 of 76.4 and a PCO2 of 29.2 with a pH of 7.43 Chest x-ray on admission with bilateral diffuse groundglass opacities along with patchy consolidative lesion in the left lower lobe along with dense infiltrate in the right lower lobe. Sternal wires present. Cardiomegaly. Lower extremity Doppler positive for DVT. Patient has a history of DVT from June 2020 as per the patient and has been on anticoagulation since then. Initiated on Coumadin for treatment failure. Sputum- Enterobacter aerogenes, which is sensitive to ceftriaxone. Nasal MRSA PCR negative. Blood cultu
--- NOTE | 2021-05-28 10:43 | DIET.NUTRFU ---
Patient tolerating TF at goal rate of 55mL/hr, providing 1897 kcals, 79 g protein, 993 mL free water. Still receiving meds combined with NaCl. Labs K 6.1H, BUN 131H indicate patient needs increased hydration, flush has been increased to 185 ml/hr q4hr = 1110 ml, equaling total of 2103 mL of fluid from TF and flush combined. Patient receiving Kayexalate for high potassium.
[2021-05-28 11:25] LABS: VBG Base Excess -6.9 mmol/L (-2.4-2.3); VBG HCO3 20.9 mmol/L (23-30); VBG Oxygen Saturation 68.9 % (50-70); VBG PCO2 52.5 mmol/L (35-51); VBG PH 7.22 mmol/L (7.31-7.41); VBG PO2 34.4 mmol/L (28-40); VBG Total CO2 22.5 mmol/L (23-27)
[2021-05-28 11:27] LABS: POC Glucose,Bedside 255 (70-110)
[2021-05-28 11:27] LABS: POC Glucose,Bedside 242 (70-110)
[2021-05-28 20:49] LABS: POC Glucose,Bedside 269 (70-110)
[2021-05-28 20:49] LABS: POC Glucose,Bedside 336 (70-110)
[2021-05-28 20:49] LABS: POC Glucose,Bedside 189 (70-110)
[2021-05-28 20:49] LABS: POC Glucose,Bedside 248 (70-110)
[2021-05-29] VITALS (38 sets, daily range): BP systolic 83–126; BP diastolic 36–53; PULSE 80–110; RESP 29–35; TEMP 36.8–38.9; O2SAT 90–98; BMI 28.3
[2021-05-29 01:14] LABS: POC Glucose,Bedside 195 (70-110)
[2021-05-29 01:14] LABS: POC Glucose,Bedside 149 (70-110)
--- NOTE | 2021-05-29 06:00 | XR_ITS ---
PROCEDURE INFORMATION: Exam: XR Chest Exam date and time: 05/29/2021 6:00 AM Age: 80 years old Clinical indication: Device placement; Ett placement (vent status); Additional info: Daily while intubated TECHNIQUE: Imaging protocol: XR of the chest. Views: 1 view. COMPARISON: CR XR CHEST PORTABLE 05/28/2021 4:51 AM FINDINGS: Tubes, catheters and devices: The ET tube nasogastric tube and central venous catheter are unchanged. Lungs: Some dense consolidation is seen in the left mid chest. Diffuse airspace disease is noted bilaterally unchanged. Pleural spaces: Unremarkable. No pleural effusion. No pneumothorax. Heart/Mediastinum: Unremarkable. No cardiomegaly. Bones/joints: Unremarkable. IMPRESSION: Bilateral infiltrates unchanged.
[2021-05-29 06:17] LABS: Basophils # 0.1 K/mm3 (0-0.2); Basophils % 0.4 % (0.1-2.0); Eosinophils % 0.2 % (0.1-12.0); Hematocrit 27.4 % (42.0-52.0); Lymphocytes # 0.4 K/mm3 (0.7-4.5); Lymphocytes % 1.8 % (10-50); Mean Corpuscular HGB Conc 30.5 g/dL (31.8-35.4); Mean Corpuscular Hemoglobin 31.2 pg (27.0-31.2); Mean Corpuscular Volume 102.2 fl (80-94); Mean Platelet Volume 9.2 fl (7.4-10.4); Monocytes # 0.7 K/mm3 (0.1-1.0); Monocytes % 3.5 % (1.7-9.3); Neutrophils # 18.3 K/mm3 (1.8-7.8); Neutrophils % 94.2 % (37.0-80.0); Platelet Count 129 K/mm3 (142-424); Red Blood Count 2.68 M/mm3 (4.60-6.20); Red Cell Distribution Width 14.9 % (11.5-17.5); White Blood Count 19.5 K/mm3 (4.8-10.8)
[2021-05-29 06:38] LABS: Alanine Aminotransferase 17 U/L (12-78); Albumin Level 1.8 g/dl (3.5-5.0); Albumin/Globulin Ratio 0.8 (1.1-1.8); Alkaline Phosphatase 126 U/L (38-126); Anion Gap 12.2 mEq/L (5-15); Aspartate Amino Transferase 52 U/L (17-59); Bilirubin,Total 0.4 mg/dl (0.2-1.3); Calcium 7.2 mg/dl (8.4-10.2); Carbon Dioxide 23 mmol/L (22.0-30.0); Chloride 114 mmol/L (98-107); Globulin 2.4 g/dL (1.3-3.2); Glucose 171 mg/dl (74-100); Sodium 143 mmol/L (136-145); Total Protein,Serum 4.2 g/dl (6.3-8.2)
[2021-05-29 06:39] LABS: Triglycerides 120 mg/dl (30-150)
[2021-05-29 06:45] LABS: Creatinine Clearance Estimated 13 mL/min (50-200); Estimated Glomerular Filt Rate 9 ml/min (>60); GFR (African American) 11 ML/MIN (>60)
[2021-05-29 06:48] LABS: MANUAL DIFFERENTIAL MANUAL DIFFERENTIAL (MANUAL DIFF)
[2021-05-29 07:35] LABS: Prothrombin Time 84.7 seconds (10.1-12.5)
[2021-05-29 07:38] LABS: Blood Urea Nitrogen 163 mg/dl (9-20); Potassium 6.2 mmoL/L (3.5-5.1)
--- NOTE | 2021-05-29 07:47 | HMH.ACPN2 ---
Internal Medicine - PN: Subj *Date: 05/29/21 *Time: 07:47 Interval history: Patient has been stable overnight. Per family request [facility] was contacted yesterday evening and patient has been placed on transfer list. Patient was started on insulin drip, given calcium gluconate, started on Kayexalate for hyperkalemia. Additional changes overnight include the addition of vasopressin as a pressor. Addition of vasopressin allowed for decrease of Levophed. Patient was also started on hydrocortisone 50 mg IV every 6 hours overnight. Nursing staff reports patient had fever overnight. Urine output was approximately 5 mL. Exam Vital signs and Labs for Last 24 Hours: Temp Pulse Resp BP Pulse Ox 99.8 F H 98 H 30 H 107/43 L 92 L 05/29/21 04:00 05/29/21 07:00 05/29/21 07:00 05/29/21 07:00 05/29/21 07:00 Laboratory Results - last 24 hr 05/27/21 16:50: POC Glucose 255 H 05/28/21 05:26: POC Glucose 242 H 05/28/21 06:00: ABG Lactate 1.3 05/28/21 06:00: Specimen Source Right radial, O2 % 100, ABG pH 7.12 L*, ABG pCO2 73.2 H, ABG pO2 99.9, ABG HCO3 23.2, ABG Total CO2 25.5, ABG O2 Saturation 97, ABG Base Excess -6.9 L, [place] Test Acceptable, Vent Rate 24, Tidal Volume 440, PEEP 16 05/28/21 06:40: Total Counted 100, Neutrophils % (Manual) 92 H, Lymphocytes % (Manual) 5 L, Monocytes % (Manual) 3, Platelet Estimate Normal, Hypochromasia 2+, Macrocytosis 2+ 05/28/21 11:21: VBG pH 7.22 L, VBG pCO2 52.5 H, VBG pO2 34.4, VBG HCO3 20.9 L, VBG Total CO2 22.5 L, VBG O2 Saturation 68.9, VBG Base Excess -6.9 L 05/28/21 12:10: POC Glucose 336 H* 05/28/21 16:12: POC Glucose 269 H 05/28/21 18:05: POC Glucose 248 H 05/28/21 20:14: POC Glucose 189 H 05/28/21 22:00: POC Glucose 149 H 05/29/21 00:05: POC Glucose 195 H 05/29/21 05:30: Triglycerides 120 05/29/21 05:30: PT 84.7 H, INR 8.00 H 05/29/21 05:30: WBC 19.5 H, RBC 2.68 L, Hct 27.4 L, MCV 102.2 H, MCH 31.2, MCHC 30.5 L, RDW 14.9, Plt Count 129 L, MPV 9.2, Neut % (Auto) 94.2 H, Lymph % (Auto) 1.8 L, [place] % (Auto) 3.5, Eos % (Auto) 0.2, Baso % (Auto) 0.4, Neut # (Auto) 18.3 H, Lymph # (Auto) 0.4 L, [place] # (Auto) 0.7, Eos # (Auto) 0.0, Baso # (Auto) 0.1 05/29/21 05:30: Sodium 143, Potassium 6.2 H*, Chloride 114 H, Carbon Dioxide 23, Anion Gap 12.2, BUN 163 H*, Creatinine 5.90 H D, Estimated Creat Clear 13, Estimated GFR 9 L*, Est GFR ( Amer) 11 L* D, Glucose 171 H D, Calcium 7.2 L, Total Bilirubin 0.4, AST 52 D, ALT 17, Alkaline Phosphatase 126, Total Protein 4.2 L, Albumin 1.8 L D, Globulin 2.4, Albumin/Globulin Ratio 0.8 L I & O for Last 24 hours: Intake & Output 05/26/21 05/27/21 05/28/21 05/29/21 11:59 11:59 11:59 11:59 Intake Total 1971.208 / 2035.208 2980.844 / 2980.844 3375.830 / 3555.830 4701.904 / 4701.904 Output Total 1235 / 1280 1140 / 1140 405 / 405 15 / 15 Balance 737.208 / 768.506 5047.844 / 5064.337 6406.830 / 3150.830 4686.904 / 4686.904 Weight 181 lb 14.102 oz 188 lb 14.978 oz 189 lb 6.033 oz 190 lb 14.725 oz Microbiology Reports for the Last 24 Hours: Microbiology 05/23/21 15:35 Blood Blood Culture - Final NO GROWTH AFTER 5 DAYS 05/23/21 15:35 Blood Blood Culture - Final NO GROWTH AFTER 5 DAYS 05/24/21 14:52 Sputum - Endotracheal Tube Aspirate - Final Not Reportable 05/24/21 14:52 Sputum - Endotracheal Tube Aspirate - Final Not Reportable 05/24/21 14:52 Sputum - Endotracheal Tube Aspirate - Final Not Reportable 05/24/21 14:52 Sputum - Endotracheal Tube Aspirate Gram Stain - Final 05/24/21 14:52 Sputum - Endotracheal Tube Aspirate Sputum Culture - Final Yeast Narrative: Patient is sedated and mechanically ventilated. Chest has palpable subcutaneous emphysema. Breath sounds are distant. Heart has a regular rate and rhythm. Abdomen is soft and mildly distend
[2021-05-29 07:50] LABS: Hypochromasia 1+; Lymphocytes % 4 % (10-50); Macrocytosis 1+; Monocytes % 2 % (2-9); Neutrophils % 94 % (42-76); Total Cells Counted 100
[2021-05-29 07:51] LABS: Platelet Estimate Normal
[2021-05-29 07:58] LABS: Lactate Arterial 1.4 mmol/L (0.4-2.0)
[2021-05-29 07:59] LABS: ABG Base Excess -7.9 mmol/L (-2.4-2.3); ABG HCO3 21.1 mmhg (22.0-26.0); ABG Oxygen Saturation 92 % (90-100); ABG PCO2 62.8 mmhg (35.0-45.0); ABG PH 7.14 mmol/L (7.35-7.45); ABG PO2 73.6 mmhg (80-100); Oxygen 75 %; Tidal Volume 460
[2021-05-29 08:00] LABS: Allen's Test ACCEPTABLE; PEEP 16; Source R RADIAL; Vent Rate 28
[2021-05-29 08:26] LABS: Hemoglobin 8.4 g/dL (14.1-18.0)
[2021-05-29 11:07] LABS: VBG Base Excess -9.5 mmol/L (-2.4-2.3); VBG HCO3 19.5 mmol/L (23-30); VBG Oxygen Saturation 96.3 % (50-70); VBG PCO2 58.1 mmol/L (35-51); VBG PO2 103.8 mmol/L (28-40); VBG Total CO2 21.3 mmol/L (23-27)
[2021-05-29 11:10] LABS: VBG PH 7.14 mmol/L (7.31-7.41)
--- NOTE | 2021-05-29 11:35 | PC.NURSE ---
Report given to David Wang RN who assumes care of patient at this time.
--- NOTE | 2021-05-29 13:32 | DIET.NUTRFU ---
Spoke to Dr. Lara this AM in regards to pateints labs: K 6.2, BUN was up to 163/Cr 5.9. patient was given a bolus lactated ringers on 05/28, also was given CaGluconate and lasix on 05/28. Sp[address] Jasso in regards to potassium and protein needs and determined Nepro formula would better meet his needs, it is higher in protein and lower in potassium. Changed order to Nepro at 50ml/hr providing 2070kcal, 93gm protein with 836ml free water plus flush of 150ml q4H= 900ml for total fluid of 1736ml plus fluid provided with medications. Also continues on propofol 393kcal/day, total of 2463kcal/day. He did also receive kayexalate today for elevated potassium.
--- NOTE | 2021-05-29 14:13 | HMH.PULMPN ---
Internal Medicine - PN: Subj *Date: 05/29/21 *Time: 14:13 Interval history: No acute respiratory events overnight. Continue to remain in high ventilator settings. Exam - Constitutional Constitutional:: Absent: no acute distress, comfortable - HENMT Exam HENMT: Present: normocephalic - Eye Exam Eyes:: Present: normal appearance both eyes and related structures - Neck Exam Neck:: Present: normal visual inspection - Respiratory Exam Respiratory:: Present: normal respiratory effort, rales. Absent: able to speak in complete sentences - Cardiovascular Exam Cardiac:: Present: S1, S2 - GI Exam GI:: Present: soft - Skin Exam Skin: Absent: warm - Neurological Exam Neurological: Absent: alert, awake, normal cognition - Extremities Exam Extremities: Present: no cyanosis, no clubbing, edema Assessment and Plan (1) Acute respiratory failure with hypoxia Status: Acute Category: Medical Code(s): J96.01 - Acute respiratory failure with hypoxia (2) Acute renal failure with oliguria Status: Acute Category: Medical Code(s): N17.9 - Acute kidney failure, unspecified; R34 - Anuria and oliguria (3) Hyperkalemia Status: Acute Category: Medical Code(s): E87.5 - Hyperkalemia (4) Viral pneumonia Status: Acute Category: Medical Code(s): J12.9 - Viral pneumonia, unspecified (5) Long-term insulin use Status: Acute Category: Medical Code(s): 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 (6) Diabetes mellitus with hyperglycemia Status: Acute Category: Medical Code(s): E11.65 - Type 2 diabetes mellitus with hyperglycemia (7) Essential hypertension Status: Acute Category: Medical Code(s): I10 - Essential (primary) hypertension (8) Status post aortic valve replacement Status: Acute Category: Surgical Code(s): Z95.2 - Presence of prosthetic heart valve (9) Former cigarette smoker Status: Acute Category: Social Hx Code(s): Z87.891 - Personal history of nicotine dependence (10) Pneumonia due to COVID-19 virus Status: Acute Category: Medical Code(s): U07.1 - COVID-19; J12.82 - Pneumonia due to coronavirus disease 2019 (11) COVID-19 virus infection Status: Acute Category: Medical Code(s): U07.1 - COVID-19 (12) Left leg DVT Status: Acute Category: Medical Code(s): I82.402 - Acute embolism and thrombosis of unspecified deep veins of left lower extremity (13) Acute kidney injury Status: Acute Category: Medical Code(s): N17.9 - Acute kidney failure, unspecified (14) Infection due to Enterobacter aerogenes Status: Acute Category: Medical Code(s): A49.8 - Other bacterial infections of unspecified site (15) Bacterial pneumonia Status: Acute Category: Medical Code(s): J15.9 - Unspecified bacterial pneumonia - Assessment and plan all Dx Assessment and Plan for all problems:: #Acute hypoxic respiratory failure: #COVID-19 pneumonia: # History of DVT: # Recurrent DVT: 80-year-old male prior smoker, greater than 32-[id number]-egew smoking history. Not yet vaccinated. COVID-19 PCR positive. Flu panel negative CRP elevated at 54.7 on admission. On home anticoagulation apixaban 5 twice daily. DImer elevated at 0.74 ABG on admission showed metabolic acidosis with respiratory compensation with a PO2 of 76.4 and a PCO2 of 29.2 with a pH of 7.43 Chest x-ray on admission with bilateral diffuse groundglass opacities along with patchy consolidative lesion in the left lower lobe along with dense infiltrate in the right lower lobe. Sternal wires present. Cardiomegaly. Lower extremity Doppler positive for DVT. Patient has a history of DVT from June 2020 as per the patient and has been on anticoagulation since then. Initiated on Coumadin for treatment failure. Sputum- Enterobacter aerogenes, which is sensitive to ceftriaxone. Nasal MRSA PCR negative. Blood cultures no growth 5 days Completed 5-day course of azithromycin. Patient received methylpred
[2021-05-29 14:25] LABS: POC Glucose,Bedside 94 (70-110)
[2021-05-29 14:25] LABS: POC Glucose,Bedside 140 (70-110)
[2021-05-29 14:25] LABS: POC Glucose,Bedside 306 (70-110)
[2021-05-29 15:45] LABS: INR 1.06 (0.9-1.1); Prothrombin Time 11.9 seconds (10.1-12.5)
--- NOTE | 2021-05-29 18:01 | PC.NURSE ---
Addendum entered by Zelda Wang RN 05/29/21 19:50: [id number] SHADIepaul returned call, Dosing for heparin drip as follows: 7,500 unit bolus x 1 drip 1,550 units per hour. ptt in 1 hour. Original Note: [id number] paged pharmacist document control clerk for heparin drip consult [id number] Tino returned call. will dose and call back
--- NOTE | 2021-05-29 20:02 | PC.NURSE ---
tube feeds stopped at 1830 r/t pt having 100 residual that was noted to be dark german. passed new tube feed instructions on to oncoming RN
--- NOTE | 2021-05-29 20:23 | PC.NURSE ---
Levophed drip increased to 18mcg r/t low BP/MAP
[2021-05-29 21:07] LABS: POC Glucose,Bedside 325 (70-110)
--- NOTE | 2021-05-29 21:10 | PC.NURSE ---
[facility] called for update; no bed available at this time.
[2021-05-30] VITALS (12 sets, daily range): BP systolic 85–99; BP diastolic 24–33; PULSE 76–94; RESP 30–43; TEMP 36.6–37.3; O2SAT 77–96; BMI 28.3; BMI 29.0
[2021-05-30 00:05] LABS: PTT Heparin (inpatient only) > 140.0 Seconds (23.6-34.0)
[2021-05-30 01:20] LABS: POC Glucose,Bedside 208 (70-110)
[2021-05-30 01:20] LABS: POC Glucose,Bedside 328 (70-110)
[2021-05-30 01:20] LABS: POC Glucose,Bedside 174 (70-110)
[2021-05-30 01:20] LABS: POC Glucose,Bedside 165 (70-110)
[2021-05-30 01:20] LABS: POC Glucose,Bedside 325 (70-110)
[2021-05-30 01:20] LABS: POC Glucose,Bedside 351 (70-110)
--- NOTE | 2021-05-30 01:44 | PC.NURSE ---
He continues in contact and airborne precautions. Have weaned both fentanyl and propofol r/t pt RASS-4. No gag reflex present. Levophed also being slowly weaned. Nepro tube feedings started at 50mL/hr at the beginning of the shift. HOB elevated 30 degrees. Heparin also started at the beginning of the shift and dose has been titrated by pharmacy. He has small amounts of blood coming out of the left side of his mouth. Oral care provided. He has received a bath. Liquid tarry stools present. F/c irrigated r/t brown sediment in tubing but he continues to have poor urine output. Central line DSG changed via sterile technique. Subcutaneous air present across chest and extending down right arm. Bilateral feet and RUE cool to touch and discolored. JORGE ALBERTO contacted r/t GCS 3. Spoke with Isa. Patient was ruled out for donation; need to call back with time of .
[2021-05-30 02:14] LABS: PTT Heparin (inpatient only) 102.4 Seconds (23.6-34.0)
--- NOTE | 2021-05-30 03:04 | PC.NURSE ---
Levophed increased r/t low blood pressure.
--- NOTE | 2021-05-30 04:20 | PC.NURSE ---
He continues to have some blood coming from his mouth. Unable to draw labs out of central line. His blood pressure continues to decrease despite the increase in levophed. Suspect he may have a low H&H so lab is attempting to draw morning labs at this time. Lab has been attempting to draw labs for approx. 20 mins.
[2021-05-30 04:43] LABS: PTT Heparin (inpatient only) 121.5 Seconds (23.6-34.0)
--- NOTE | 2021-05-30 04:45 | PC.NURSE ---
[facility] called for update; no bed available at this time.
--- NOTE | 2021-05-30 04:48 | PC.NURSE ---
Respiratory notified r/t cuff leak and is in the room at this time. He is maxed on levophed. Were able to get labs; awaiting results. BP 77/29, HR 87, R 40, O2 89%
[2021-05-30 04:50] LABS: Chloride 109 mmol/L (98-107); Sodium 138 mmol/L (136-145)
--- NOTE | 2021-05-30 04:50 | PC.NURSE ---
Respiratory increased FiO2 to 90%.
[2021-05-30 04:52] LABS: Alanine Aminotransferase 48 U/L (12-78); Aspartate Amino Transferase 140 U/L (17-59); Bilirubin,Total 0.3 mg/dl (0.2-1.3)
[2021-05-30 04:53] LABS: Albumin Level 1.8 g/dl (3.5-5.0); Albumin/Globulin Ratio 0.7 (1.1-1.8); Alkaline Phosphatase 119 U/L (38-126); Anion Gap 18.2 mEq/L (5-15); Calcium 6.8 mg/dl (8.4-10.2); Carbon Dioxide 19 mmol/L (22.0-30.0); Globulin 2.5 g/dL (1.3-3.2); Glucose 346 mg/dl (74-100); Total Protein,Serum 4.3 g/dl (6.3-8.2)
[2021-05-30 04:54] LABS: Basophils # 0.1 K/mm3 (0-0.2); Basophils % 0.2 % (0.1-2.0); Eosinophils % 0.1 % (0.1-12.0); Hematocrit 22.1 % (42.0-52.0); Lymphocytes # 0.7 K/mm3 (0.7-4.5); Lymphocytes % 2.5 % (10-50); Mean Corpuscular HGB Conc 30.3 g/dL (31.8-35.4); Mean Corpuscular Hemoglobin 32.2 pg (27.0-31.2); Mean Corpuscular Volume 106.3 fl (80-94); Mean Platelet Volume 9.9 fl (7.4-10.4); Monocytes # 1.3 K/mm3 (0.1-1.0); Monocytes % 4.9 % (1.7-9.3); Neutrophils # 23.5 K/mm3 (1.8-7.8); Neutrophils % 92.2 % (37.0-80.0); Platelet Count 128 K/mm3 (142-424); Red Blood Count 2.08 M/mm3 (4.60-6.20); Red Cell Distribution Width 15.2 % (11.5-17.5); White Blood Count 25.5 K/mm3 (4.8-10.8)
[2021-05-30 05:00] LABS: Creatinine Clearance Estimated 10 mL/min (50-200); Estimated Glomerular Filt Rate 7 ml/min (>60); GFR (African American) 8 ML/MIN (>60)
[2021-05-30 05:07] LABS: MANUAL DIFFERENTIAL MANUAL DIFFERENTIAL (MANUAL DIFF)
[2021-05-30 05:08] LABS: Hemoglobin 6.7 g/dL (14.1-18.0)
[2021-05-30 05:09] LABS: Blood Urea Nitrogen 196 mg/dl (9-20); Potassium 8.2 mmoL/L (3.5-5.1)
[2021-05-30 05:33] LABS: Lymphocytes % 6 % (10-50); Macrocytosis 2+; Neutrophils % 94 % (42-76); Platelet Estimate Normal; Total Cells Counted 100
--- NOTE | 2021-05-30 05:55 | PC.NURSE ---
His O2 sat decreased to 76%, respiratory is in the room and believes that cuff is blown. MD cone picker paged; he requests for ER MD to look at tube and potentially replace ETT.
--- NOTE | 2021-05-30 06:00 | XR_ITS ---
PROCEDURE INFORMATION: Exam: XR Chest Exam date and time: 05/30/2021 6:00 AM Age: 80 years old Clinical indication: Device placement; Ett placement (vent status); Patient HX: Covid +; Additional info: Daily while intubated TECHNIQUE: Imaging protocol: XR of the chest. Views: 1 view. COMPARISON: CR XR CHEST PORTABLE 05/29/2021 4:22 AM FINDINGS: Tubes, catheters and devices: ET tube and nasogastric tube are unchanged. Lungs: Dense infiltrate is seen in the left mid chest extensive patchy infiltrate is noted elsewhere not significantly changed. Pleural spaces: Unremarkable. No pleural effusion. No pneumothorax. Heart/Mediastinum: Unremarkable. No cardiomegaly. Bones/joints: Unremarkable. Soft tissues: Extensive subcutaneous emphysema is noted. IMPRESSION: Stable exam.
--- NOTE | 2021-05-30 06:53 | PC.NURSE ---
Heparin gtt d/c per .
--- NOTE | 2021-05-30 07:30 | HMH.ACPN2 ---
Internal Medicine - PN: Subj *Date: 05/30/21 *Time: 07:30 Interval history: Patient developed black tarry stools overnight. O2 sats could not be maintained on mechanical ventilation with drops into the 80s. Patient has developed mottling of the extremities. Blood pressure has dropped despite use of 2 pressors at maximum dosing (Levophed and vasopressin. Exam Vital signs and Labs for Last 24 Hours: Temp Pulse Resp BP Pulse Ox 99.2 F 76 30 H 89/33 L 88 L 05/30/21 02:00 05/30/21 06:05 05/30/21 06:05 05/30/21 05:00 05/30/21 06:05 Laboratory Results - last 24 hr 05/29/21 02:06: POC Glucose 165 H 05/29/21 04:28: POC Glucose 174 H 05/29/21 05:30: PT 84.7 H, INR 8.00 H 05/29/21 05:30: Hgb 8.4 L D, Total Counted 100, Neutrophils % (Manual) 94 H, Lymphocytes % (Manual) 4 L, Monocytes % (Manual) 2, Platelet Estimate Normal, Hypochromasia 1+, Macrocytosis 1+ 05/29/21 05:30: Sodium 143, Potassium 6.2 H*, Chloride 114 H, Carbon Dioxide 23, Anion Gap 12.2, BUN 163 H*, Creatinine 5.90 H D, Estimated Creat Clear 13, Estimated GFR 9 L*, Est GFR ( Amer) 11 L* D, Glucose 171 H D, Calcium 7.2 L, Total Bilirubin 0.4, AST 52 D, ALT 17, Alkaline Phosphatase 126, Total Protein 4.2 L, Albumin 1.8 L D, Globulin 2.4, Albumin/Globulin Ratio 0.8 L 05/29/21 06:00: ABG Lactate 1.4 05/29/21 06:00: Specimen Source R radial, O2 % 75, ABG pH 7.14 L*, ABG pCO2 62.8 H, ABG pO2 73.6 L, ABG HCO3 21.1 L, ABG Total CO2 23.0, ABG O2 Saturation 92, ABG Base Excess -7.9 L, [place] Test Acceptable, Vent Rate 28, Tidal Volume 460, PEEP 16 05/29/21 06:03: POC Glucose 208 H 05/29/21 10:35: POC Glucose 94 05/29/21 10:55: POC Glucose 140 H 05/29/21 11:00: VBG pH 7.14 L, VBG pCO2 58.1 H, VBG pO2 103.8 H, VBG HCO3 19.5 L, VBG Total CO2 21.3 L, VBG O2 Saturation 96.3 H, VBG Base Excess -9.5 L 05/29/21 12:11: POC Glucose 306 H* 05/29/21 14:34: POC Glucose 351 H* 05/29/21 15:20: PT 11.9, INR 1.06 05/29/21 16:50: POC Glucose 328 H* 05/29/21 18:59: POC Glucose 325 H* 05/29/21 19:50: POC Glucose 325 H* 05/29/21 22:38: APTT > 140.0 H* 05/30/21 01:25: APTT 102.4 H* 05/30/21 03:30: APTT 121.5 H* 05/30/21 04:30: WBC 25.5 H* D, RBC 2.08 L, Hgb 6.7 L* D, Hct 22.1 L, MCV 106.3 H, MCH 32.2 H, MCHC 30.3 L, RDW 15.2, Plt Count 128 L, MPV 9.9, Neut % (Auto) 92.2 H, Lymph % (Auto) 2.5 L, [place] % (Auto) 4.9, Eos % (Auto) 0.1, Baso % (Auto) 0.2, Neut # (Auto) 23.5 H, Lymph # (Auto) 0.7, [place] # (Auto) 1.3 H, Eos # (Auto) 0.0, Baso # (Auto) 0.1, Total Counted 100, Neutrophils % (Manual) 94 H, Lymphocytes % (Manual) 6 L, Platelet Estimate Normal, RBC Morphology Not Reportable, Macrocytosis 2+ 05/30/21 04:30: Sodium 138, Potassium 8.2 H* D, Chloride 109 H, Carbon Dioxide 19 L, Anion Gap 18.2 H, BUN 196 H*, Creatinine 7.70 H D, Estimated Creat Clear 10, Estimated GFR 7 L*, Est GFR ( Amer) 8 L* D, Glucose 346 H D, Calcium 6.8 L, Total Bilirubin 0.3, AST 140 H D, ALT 48 D, Alkaline Phosphatase 119, Total Protein 4.3 L, Albumin 1.8 L, Globulin 2.5, Albumin/Globulin Ratio 0.7 L I & O for Last 24 hours: Intake & Output 05/27/21 05/28/21 05/29/21 05/30/21 11:59 11:59 11:59 11:59 Intake Total 2980.844 / 2980.844 3375.830 / 3555.830 4959.904 / 4959.904 3064.199 / 3064.199 Output Total 1140 / 1140 405 / 405 15 / 15 9 / Balance 1840.844 / 2638.970 8309.830 / 3150.830 4944.904 / 4944.904 3055.199 / 3055.199 Weight 188 lb 14.978 oz 189 lb 6.033 oz 190 lb 14.725 oz 195 lb 12.328 oz Narrative: Patient is sedated on the ventilator. Lungs are distant anteriorly primarily due to extensive subcutaneous edema of the chest and neck. Posteriorly breath sounds are diminished as well. Heart has a regular rate and rhythm. Abdomen is soft with hypoactive bowel sounds. Extremities are cool to touch with mottling and bruising of the forearms bilaterally as well as developing mottling in the lower extremities Assessment and Plan (1) Acute respiratory failure with hypoxia Status: Acute Category: Medic
[2021-05-30 07:37] LABS: INR 3.11 (0.9-1.1); Prothrombin Time 32.3 seconds (10.1-12.5)
[2021-05-30 08:08] LABS: ABG Base Excess -16.5 mmol/L (-2.4-2.3); ABG HCO3 15.6 mmhg (22.0-26.0); ABG Oxygen Saturation 97 % (90-100); ABG PO2 136.5 mmhg (80-100); ABG TCO2 17.8 mmhg (23-27)
[2021-05-30 08:09] LABS: Oxygen 100 %; PEEP 16; Tidal Volume 460; Vent Rate 30
[2021-05-30 08:10] LABS: ABG PH 6.95 mmol/L (7.35-7.45); Allen's Test Non Applicable; Source Right Femoral
[2021-05-30 08:11] LABS: ABG PCO2 72.2 mmhg (35.0-45.0)
--- NOTE | 2021-05-30 08:37 | HMH.DEATH ---
Pronouncement Note - Date and Time of Date of : 05/30/21 Time of : 08:28 - Additional Data Confirmation of : no pulse, no respirations, no heart sounds, pupils fixed and dilated Attending physician: Mathieu Lara MD
[2021-05-30 11:05] LABS: POC Glucose,Bedside 376 (70-110)
[2021-05-30 11:05] LABS: POC Glucose,Bedside 389 (70-110)
--- NOTE | 2021-06-02 07:25 | HMH.DCSUM ---
General - General Admission date:: 05/12/21 Discharge date: 06/02/21 HPI HPI: 80-year-old male presented to the emergency department with a cough and known COVID exposure via his . At the time of interview with patient he denies any significant malaise or symptomatology other than his cough. He may have had some chills but denies shortness of breath and fever. Patient was hypoxic in the emergency department requiring application of HFNC to correct his hypoxia. Additional work-up confirmed COVID-19 infection with bilateral infiltrates consistent with viral pneumonia from COVID. Patient was given a fluid bolus in the emergency department as he was felt to be mildly dehydrated. He was admitted for his acute respiratory failure and viral pneumonia due to COVID-19. Patient has diabetes for which she takes insulin. He has a history of aortic valve replacement with bioprosthetic valve. He has high blood pressure. Patient is a former smoker who quit in 2017 after nearly 50 years of cigarette use. Patient has not received a COVID-19 vaccine Hospital Course Hospital Course: Patient was admitted to the hospital with diagnosis of acute respiratory failure from pneumonia due to COVID-19 and acute kidney injury. Hospital course is as follows per diagnosis: 1. COVID-19 pneumonia with acute respiratory failure. Patient was admitted to the hospital requiring high flow nasal cannula. Patient completed 10 days of Remdesivir, 14 days of baricitinib, 10 days of dexamethasone during hospitalization. On day 13 of hospitalization patient required intubation and mechanical ventilation for worsening acute respiratory failure. Pulmonology service has been consulted from the beginning of hospitalization and managed the ventilator. Patient remained stable while mechanically ventilated but did not show signs of improving respiratory status. At time of patient's he remained on ventilator. 2. Acute kidney injury. Patient had mild acute kidney injury on presentation to the hospital and was started on IV fluids. IV fluids in addition to standard treatment for COVID-19 infection seem to improve renal function initially. Patient's renal function remained stable with good urine output until approximately May 18. At this point patient had gradually increasing BUN and creatinine daily. Attempt to slow decline in renal function did not respond to addition of vasopressin as a pressor while the patient was intubated. Urine output gradually declined. Discussion was had with family regarding dialysis. Although it was believed patient would unlikely be transferred quick enough. Transfer was sought and patient was accepted at [facility]. Patient ultimately passed before transfer could occur. 3. 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 Patient had been on Eliquis. Persistence of clot was considered in Eliquis failure and patient was transitioned to Lovenox and warfarin. Patient had rather robust response to warfarin with rapidly elevating INR. Patient was given intravenous vitamin K on 2 occasions due to rising INR. This would generally result in subtherapeutic treatment for which patient would once again received Lovenox. Towards the end of hospitalization after being given vitamin K for the second time patient was started on a heparin drip once INR had reduced. Patient ultimately developed a GI bleed. Heparin was stopped the day of the patient's passing. 4. Patient developed upper GI bleed 24 hours prior to his . Hemoglobin had dropped to 6.5. Heparin drip was discontinued the day of the patient's passing 5. Enterobacter aerogenes pneumonia. Sputum culture performed upon admission grew Enterobacter aerogen S. Patient been started on Rocephin and azithromycin on the day of admission. Enterob
== END 2021-05-30 10:49 | disposition expired | DRG 207 ==
LOC: ER 16:36 → 2ND 17:00 → ICU 05-15 11:19 → 2ND 05-16 11:05
PROVIDERS: Internal Medicine Pulmonary Disease; Admitting Provider Family Medicine; Emergency Provider Emergency Medicine; PCP Physician Assistant; Visit Provider Family Medicine
DX: U07.1 COVID-19 (principal); J12.82 Pneumonia due to coronavirus disease 2019; J96.01 Acute respiratory failure with hypoxia; J96.02 Acute respiratory failure with hypercapnia; K85.90 Acute pancreatitis without necrosis or infection, unspecified; J15.9 Unspecified bacterial pneumonia; N17.9 Acute kidney failure, unspecified; I82.432 Acute embolism and thrombosis of left popliteal vein; I82.412 Acute embolism and thrombosis of left femoral vein; Z79.4 Long term (current) use of insulin; Z79.01 Long term (current) use of anticoagulants; D50.0 Iron deficiency anemia secondary to blood loss (chronic); I10 Essential (primary) hypertension; Z95.2 Presence of prosthetic heart valve; E11.65 Type 2 diabetes mellitus with hyperglycemia; B96.89 Other specified bacterial agents as the cause of diseases classified elsewhere; E87.5 Hyperkalemia; D69.6 Thrombocytopenia, unspecified; I95.9 Hypotension, unspecified
CPT/HCPCS: 31500; 94002; 36556; 36415; 71045; 80053; 81001; 82009; 82803; 82947; 82962; 83605; 83690; 83735; 83880; 84443; 84478; 84484; 85007; 85025; 85378; 85610; 85730; 86140; 87040; 87070; 87077; 87081; 87102; 87186; 87205; 87206; 93005; 93306; 93970; 94003; 94640; 94760; 94761; 96365; 96375; 97110; 97530; 99285; C9803; J0330; J0456; J0696; J2185; J2704; U0003; U0005